=== PATIENT | female | born 1965 | race Caucasian/White ===

== ENCOUNTER → 2021-08-13 09:49 | Outpatient (BNVA) | payer OTHER, SELFPAY | PROVIDERS: PCP Family Medicine; Visit Provider Nurse Practitioner Family | DX: F07.81 Postconcussional syndrome (principal); G43.909 Migraine, unspecified, not intractable, without status migrainosus; R42 Dizziness and giddiness; F09 Unspecified mental disorder due to known physiological condition | CPT/HCPCS: 99202 ==

== ENCOUNTER → 2021-10-22 11:25 | Outpatient (BNVA) | payer OTHER, SELFPAY | PROVIDERS: PCP Family Medicine; Visit Provider Nurse Practitioner Family | DX: F07.81 Postconcussional syndrome (principal); G43.909 Migraine, unspecified, not intractable, without status migrainosus; F09 Unspecified mental disorder due to known physiological condition; R42 Dizziness and giddiness | CPT/HCPCS: 99212 ==

== ENCOUNTER → 2021-12-31 09:56 | Outpatient (BNVA) | payer OTHER, SELFPAY | PROVIDERS: PCP Family Medicine; Visit Provider Nurse Practitioner Family | DX: F07.81 Postconcussional syndrome (principal); G43.909 Migraine, unspecified, not intractable, without status migrainosus; R42 Dizziness and giddiness; F09 Unspecified mental disorder due to known physiological condition | CPT/HCPCS: 99212 ==

== ENCOUNTER → 2022-04-01 09:28 | Outpatient (BNVA) | payer OTHER, SELFPAY | PROVIDERS: PCP Family Medicine; Visit Provider Nurse Practitioner Family | DX: G43.909 Migraine, unspecified, not intractable, without status migrainosus (principal); F09 Unspecified mental disorder due to known physiological condition; F07.81 Postconcussional syndrome | CPT/HCPCS: 99212 ==

== ENCOUNTER → 2022-06-17 14:54 | Outpatient (BNVA) | payer OTHER, SELFPAY | PROVIDERS: PCP Family Medicine; Visit Provider Nurse Practitioner Family | DX: F07.81 Postconcussional syndrome (principal); R42 Dizziness and giddiness | CPT/HCPCS: 99212 ==

== ENCOUNTER → 2022-09-17 14:25 | Outpatient (BNVA) | payer OTHER, SELFPAY | PROVIDERS: PCP Family Medicine; Visit Provider Nurse Practitioner Family | DX: F07.81 Postconcussional syndrome (principal); G43.909 Migraine, unspecified, not intractable, without status migrainosus; F09 Unspecified mental disorder due to known physiological condition; R42 Dizziness and giddiness | CPT/HCPCS: 99212 ==

== ENCOUNTER 2022-12-31 14:24 | Outpatient (AMB) | payer OTHER, SELFPAY ==
--- NOTE | 2022-12-31 14:28 | MHC.OFFVIS ---
Intake Vital Signs 12/31/22 14:29 Height 5 ft BP 114/80 Blood Pressure Location Rt brachial Position Sitting Pulse 108 H Pulse Source Pulse Oximeter Pulse Oximetry (%) 97 Oxygen Delivery Method Room Air Intake Visit Reasons: 3m follow up - Confirmed Intake Note: Patient presents for 3 month follow up. patient states I'm needing some accomodations for work and I'm hoping she will help me with this,also I'm having some sensitivity to my computer not sure if someone messed with the settings I'm sleeping much better. 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
[2022-12-31 14:29] VITALS: BP 114/80; PULSE 108; O2SAT 97
--- NOTE | 2022-12-31 14:31 | MHC.OFFVIS ---
Intake Vital Signs 12/31/22 14:29 Height 5 ft BP 114/80 Blood Pressure Location Rt brachial Position Sitting Pulse 108 H Pulse Source Pulse Oximeter Pulse Oximetry (%) 97 Oxygen Delivery Method Room Air Intake Visit Reasons: 3m follow up - Confirmed Intake Note: Patient states I'm starting to work with accomdations at work and trying to figure our what acomadations I need. I'm hoping she can provide some input on that. I have not been taking the riboflavin or magnesium in general I'm doing better with sleep. Allergies adhesive Allergy (Verified 12/31/22 14:35) Rash beeswax Allergy (Verified 12/31/22 14:35) Unknown tree nut Allergy (Verified 12/31/22 14:35) Hives dairy Adverse Reaction (Severe, Uncoded 12/31/22 14:35) Constipation Medication List - Last Reconciled 12/31/22 by Sally Mendoza, CHANNING bupropion HCl 300 mg PO QAM dextroamphetamine-amphetamine 5 mg 1 tab PO .afternoon epinephrine IM DIRECTED estradiol (Yuvafem) 10 mcg vaginal 2XW lisdexamfetamine (Vyvanse) 30 mg PO QAM magnesium oxide 400 mg PO DAILY 30 days riboflavin (vitamin B2) 400 mg (4 x 100 mg) PO DAILY 30 days sumatriptan succinate 50 - 100 mg orally at onset of headache, may repeat in 2 hrs PRN; max 2 tabs/day or 4 tabs/week (may take with Tylenol or NSAID) 30 days HPI HPI Comments History of Present Illness Details 57-yr-old female presents for f/u visit, accompanied by her who helps with history and takes notes for patient (as the visit progressed). Pt has many questions today, related to her prognosis and would like to revisit her treatment plan w/ present. Over the last 3 months, she has needed to switch from Adderall to Vyvanse- d/t the Adderall drug shortage. This has required some dose adjustment to accommodate side effects, such as increased tinnitus and dizziness. She reports that at the end of August- she started her 2nd session of vision therapy. She was much more symptomatic during this session- increased photophobia, some mild increased phonophobia/osmophobia. And again, more recently she is having an increase in her photophobia, particularly certain work computer screens. She thinks possibly the settings were changed during a recent IT update. She has had a few headaches in the past 2-3 months, which generally are mild and can last a couple of days. She had been working about 4 hrs per day- had been working more, but had to decrease when she started having difficulty obtaining her Adderal as above. Currently her PCP has advised her to abstain from work until her computer monitors can be adjusted and/or her photophobia/screen tolerance improves. 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 [employer] All systems reviewed & are unremarkable except as noted in HPI and below Physical Exam Vital Signs: Last Vital Signs Pulse 108 H 12/31/22 14:29 BP 114/80 12/31/22 14:29 Pulse Ox 97 12/31/22 14:29 Oxygen Delivery Method Room Air 12/31/22 14:29 Const General: cooperative and no acute distress Orientation/consciousness: patient oriented x3 HEENT Head: Yes normocephalic Resp Effort & Inspection: normal respiratory effort and able to speak in complete sentences Neuro Other: Photophobia (exam room lights dimmed, but pt still needs to don a cap half way through visit) General: patient oriented x3, gait normal and CN's II-XI intact bilaterally Cognition (Neuro): normal cognition Motor exam (neuro): 5/5 motor strength present throughout Psych Appearance: grossly normal Mental Status: mental status grossly normal Speech and movement: Normal speech and movement present Affect: normal affect Attitude: cooperative Thought process: Normal thought process present Thought content: Normal thought content present Insight: Good insight present (Psych) Judgement: Good judgement present (Psych) Assessment & Plan Assessment & Plan (1) Postconcussive syndrome: Comment: s/p fall at work on 05/02/21. Headache, dizziness, cognitive difficulties, photophobia. Improving. Code(s): F07.81 - Postconcussional syndrome (2) Cognitive dysfunction: Comment: Improving Code(s): F09 - Unspecified mental disorder due to known physiological condition (3) Migraine headache: Code(s): G43.909 - Migraine, unspecified, not intractable, without status migrainosus Plan For post-concussive headache w/ migraine features and photophobia: Again advised to trial Sumatripatn- this may help photophobia. Instructions: sumatriptan 100 mg tablet, 1/2-1 tab at onset of migrainous headache (order resent w/ dose clarification).? May repeat in 2 hours x1.? May take with OTC NSAID such as ibuprofen or naproxen, or acetaminophen.? Reviewed common potential side effects associated with triptan use, including but not limited to drowsiness, nausea, paresthesias. Information given on Nerivio- which can be used for acute and prn tx. Pt will review and let me know if she would like to pursue this. ? For prevention of post concussive headaches with migraine features: Resume riboflavin and magnesium for migraine headache prevention. ? She may continue Vyvanse- managed by PCP. ? For photophobia: Vision tx- continue Continue limiting blue light exposure.?Do not wear sunglasses indoors, although may wear these outdoors. ? For sleep: Continue CPAP. ? Concur with pt abstaining from work while reasonable accommodations are implemented for her post-concussive symptoms, especially for photophobia, are implemented. During this time, pt to implement plan above. If ineffective, consider revisiting Amitriptyline. f/u in 3 months or sooner prn. Coding Level of Care Code Est Pt Level 5 (62506) Diagnoses Postconcussive syndrome F07.81 Cognitive dysfunction F09 Migraine headache G43.909 Time Spent (min) 65
== END 2022-12-31 15:50 | disposition home or self-care (01) ==
PROVIDERS: PCP Family Medicine; Visit Provider Nurse Practitioner Family
DX: R41.89 Other symptoms and signs involving cognitive functions and awareness (principal); F07.81 Postconcussional syndrome; G44.309 Post-traumatic headache, unspecified, not intractable
CPT/HCPCS: 99215

== ENCOUNTER → 2022-12-31 14:24 | Outpatient (BNVA) | payer OTHER, SELFPAY | PROVIDERS: PCP Family Medicine; Visit Provider Nurse Practitioner Family | DX: F07.81 Postconcussional syndrome (principal); F09 Unspecified mental disorder due to known physiological condition; G43.909 Migraine, unspecified, not intractable, without status migrainosus | CPT/HCPCS: 99212 ==

== ENCOUNTER → 2023-07-01 15:22 | Outpatient (BNVA) | payer OTHER, SELFPAY | PROVIDERS: PCP Family Medicine; Visit Provider Nurse Practitioner Family | DX: F07.81 Postconcussional syndrome (principal); G43.909 Migraine, unspecified, not intractable, without status migrainosus; F09 Unspecified mental disorder due to known physiological condition; R42 Dizziness and giddiness | CPT/HCPCS: 99212 ==

== ENCOUNTER 2023-07-01 15:27 | Outpatient (AMB) | payer OTHER, SELFPAY ==
--- NOTE | 2023-07-01 15:33 | MHC.OFFVIS ---
Vital Signs 07/01/23 15:34 Height 5 ft Weight 165 lb BMI 32.2 BP 116/80 Blood Pressure Location Rt brachial Position Sitting Pulse 84 Pulse Source Pulse Oximeter Pulse Oximetry (%) 99 Oxygen Delivery Method Room Air Intake Visit Reasons: follow up-CONF Intake Note: Patient presents for follow up. feeling a lot better. Allergies adhesive Allergy (Verified 07/01/23 15:37) Rash beeswax Allergy (Verified 07/01/23 15:37) Unknown tree nut Allergy (Verified 07/01/23 15:37) Hives dairy Adverse Reaction (Severe, Uncoded 07/01/23 15:37) Constipation HPI Comments Details: 58-yr-old female presents for f/u visit. Pt completed the vision light tx. After this, she was feeling somewhat better, but not everything was better. She has been scheduled to have another vision evaluation r/t vertigo and vision s/s. Her vision therapists have advised her to limit her exposures to anything that had been a trigger for her postconcussive symptoms. She has tried to return to work reduced hours but 5 days in a row, but then she did not tolerate this. She is now working a more reduced work schedule. She now has assistance from her employer's accommodations department. She is still having some symptoms, but more low-grade: She reports when she is taxed, although it takes more to tax her, she has osmophobia, photophobia, phonophobia, cognitive difficulties- word finding difficulties, brain fog, becomes overwhelmed. Her physical symptoms are more easily triggered than the cognitive symptoms. She still has headaches at times- milder low grade head pressure a/w osmophobia, photophobia, phonophobia. She ran out of the Magnesium- her work comp was not covering it and this happened while she was doing her vision tx- and she was having difficulties following through on that. She states that she should be receiving this shortly to resume it. She tried the Sumatriptan 25-50mg, which was very effective w/o side effects. 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: Last Vital Signs Pulse 84 07/01/23 15:34 BP 116/80 07/01/23 15:34 Pulse Ox 99 07/01/23 15:34 Oxygen Delivery Method Room Air 07/01/23 15:34 BMI result Body Mass Index 32.2 Const General: cooperative and no acute distress Orientation/consciousness: patient oriented x3 Resp Effort & Inspection: normal respiratory effort and able to speak in complete sentences Neuro Other: Photophobic General: patient oriented x3 Cranial nerves: Yes CN's II-XII intact bilaterally Cognition (Neuro): normal cognition Psych Appearance: grossly normal Mental Status: mental status grossly normal Speech and movement: Normal speech and movement present Affect: normal affect Attitude: cooperative Assessment & Plan Assessment & Plan (1) Postconcussive syndrome: Comment: s/p fall at work on 05/02/21. Headache, dizziness, cognitive difficulties, photophobia. Improving. Code(s): F07.81 - Postconcussional syndrome Category: Medical (2) Migraine headache: Code(s): G43.909 - Migraine, unspecified, not intractable, without status migrainosus Category: Medical (3) Cognitive dysfunction: Comment: Improving Code(s): F09 - Unspecified mental disorder due to known physiological condition Category: Medical (4) Vertigo: Comment: Improving Code(s): R42 - Dizziness and giddiness Category: Medical Plan For post-concussive headache w/ migraine features and photophobia: Sumatriptan 100 mg tablet, 1/4-1/2-1 tab at onset of migrainous headache, or associated symptoms- photo/phono/osmophobia.? May repeat in 2 hours x1.? May take with OTC NSAID such as ibuprofen or naproxen, or acetaminophen. For prevention of post concussive headaches with migraine features: Riboflavin and magnesium for migraine headache prevention. If?ineffective, consider revisiting Amitriptyline. She may continue neurostimulant- managed by PCP. ? For photophobia: Vision tx Continue limiting blue light exposure.?Do not wear sunglasses indoors, although may wear these outdoors. ? For sleep: Continue CPAP. Continue reduced work schedule. ? ? f/u in 6 months or sooner prn. Scribe Plan - Not visible on output: Reviewed possible medication side effects, including but not limited to drowsiness, dizziness.
[2023-07-01 15:34] VITALS: BP 116/80; PULSE 84; O2SAT 99; BMI 32.2
== END 2023-07-01 16:33 | disposition home or self-care (01) ==
PROVIDERS: PCP Family Medicine; Visit Provider Nurse Practitioner Family
DX: G44.309 Post-traumatic headache, unspecified, not intractable (principal); F07.81 Postconcussional syndrome; R42 Dizziness and giddiness
CPT/HCPCS: 99214

== ENCOUNTER 2024-01-01 14:27 | Outpatient (AMB) | payer OTHER, SELFPAY ==
--- NOTE | 2024-01-01 14:34 | A.OFFVIS_ITS ---
Vital Signs 01/01/24 14:35 Height 5 ft Weight 157 lb BMI 30.7 Intake Visit Reasons: W/C 6 mon follow up Intake Note: Patient presents for 6 month follow up. Patient believes there something going on in her neck. Allergies adhesive Allergy (Verified 01/01/24 14:39) Rash beeswax Allergy (Verified 01/01/24 14:39) Unknown tree nut Allergy (Verified 01/01/24 14:39) Hives dairy Adverse Reaction (Severe, Uncoded 01/01/24 14:39) Constipation Medication List - Last Reconciled 01/01/24 by CHANNING Conti bupropion HCl XL 300 mg PO QAM dextroamphetamine-amphetamine 10 mg ER 1 cap PO QAM dextroamphetamine-amphetamine 5 mg 1 tab PO .afternoon epinephrine IM DIRECTED estradiol (Yuvafem) 10 mcg vaginal 2XW lisdexamfetamine (Vyvanse) 30 mg PO QAM magnesium oxide 400 mg PO DAILY 30 days riboflavin (vitamin B2) 400 mg (4 x 100 mg) PO DAILY 30 days sumatriptan succinate 50 - 100 mg orally at onset of headache, may repeat in 2 hrs PRN; max 2 tabs/day or 4 tabs/week (may take with Tylenol or NSAID) 30 days HPI Comments Details: 58-yr-old female presents for f/u visit of post-concussive tx. She is still having some postconcussive symptoms, but much less often and less intense. Pt has started wearing 1 of the 3 pairs of specific glasses w/ prisms and medical light blocking tints, which have been helping. She is still waiting to receive the other 2 glasses- for the computer and for reading. Over the summer, she ended up without her Adderall for several days when she travelled to help her mother and ended up staying there for 2 weeks- and found that she did not do as well as she thought she would have off the Adderall. But now is able to function a bit better if she misses an afternoon dose of Adderall. She is now working full days [id number], and 3 hrs on and . 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 She reports that she did sleep another time at her mother's and did not have her usual thin pillow (which she has needed to use since the accident), and since she has felt that her neck has not been right since, she notices when she turns her head to the right it can trigger a headache. She has done PT in the past w hich has helped but has had to repeat it after a year or so. She has been having more low grade headaches. She has not been having many more severe headaches. She does take, but may forget to take her B2 and Mag at times. Sumatriptan 25-50mg, can be very effective w/o side effects. 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 General: patient oriented x3 and deep tendon reflexes 2+ bilaterally Cranial nerves: Yes CN's II-XII intact bilaterally Cognition (Neuro): normal cognition Motor exam (neuro): 5/5 motor strength present throughout Psych Appearance: grossly normal Mental Status: mental status grossly normal Speech and movement: Normal speech and movement present Affect: normal affect Attitude: cooperative Assessment & Plan Assessment & Plan (1) Postconcussive syndrome: Comment: s/p fall at work on 05/02/21. Headache, dizziness, cognitive difficulties, photophobia. Improving. Code(s): F07.81 - Postconcussional syndrome Category: Medical (2) Migraine headache: Code(s): G43.909 - Migraine, unspecified, not intractable, without status migrainosus Category: Medical (3) Cervicalgia: Code(s): M54.2 - Cervicalgia Category: Medical (4) Cognitive dysfunction: Comment: Improving Code(s): F09 - Unspecified mental disorder due to known physiological condition Category: Medical (5) Vertigo: Comment: Improving Code(s): R42 - Dizziness and giddiness Category: Medical Plan For post-concussive headache w/ migraine features and photophobia: Sumatriptan 100 mg tablet, 1/2-1 tab at onset of migraine headache, or associated symptoms- photo/phono/osmophobia.? May repeat in 2 hours x1.? May take with OTC NSAID such as ibuprofen or naproxen, or acetaminophen. For prevention of post concussive headaches with migraine features: Riboflavin and magnesium for migraine headache prevention. If?ineffective, consider revisiting Amitriptyline. For post-concussive cervicalgia which is excacerbating headcahes: Resume PT exercises. Try chiropractic tx- if ineffective, revisit PT. She may continue neurostimulant- managed by PCP. ? For photophobia: Vision tx Medical grade light filtering glasses w/ prisms as prescribed- she is awaiting 2 more pairs for readinga nd computer use. Continue limiting blue light exposure.? Do not wear sunglasses indoors, although may wear these outdoors. ? For sleep: Continue CPAP. Continue reduced work schedule. ? ? f/u in 6 months or sooner prn. Orders: Referrals Chiropractic Referral F07.81 - Postconcussional syndrome, G43.909 - Migraine, unspecified, not intractable, without status migrainosus, M54.2 - Cervicalgia Coding Level of Care Code Est Pt Level 4 (93547) Diagnoses Postconcussive syndrome F07.81 Migraine headache G43.909 Cervicalgia M54.2 Cognitive dysfunction F09 Vertigo R42
[2024-01-01 14:35] VITALS: BMI 30.7
== END 2024-01-01 15:39 | disposition home or self-care (01) ==
PROVIDERS: PCP Family Medicine; Visit Provider Nurse Practitioner Family
DX: F07.81 Postconcussional syndrome (principal); G44.301 Post-traumatic headache, unspecified, intractable; F09 Unspecified mental disorder due to known physiological condition; M54.2 Cervicalgia; R42 Dizziness and giddiness
CPT/HCPCS: 99214

== ENCOUNTER → 2024-01-01 14:27 | Outpatient (BNVA) | payer OTHER, SELFPAY | PROVIDERS: PCP Family Medicine; Visit Provider Nurse Practitioner Family | DX: F07.81 Postconcussional syndrome (principal); G43.909 Migraine, unspecified, not intractable, without status migrainosus; M54.2 Cervicalgia; F09 Unspecified mental disorder due to known physiological condition; R42 Dizziness and giddiness | CPT/HCPCS: 99212 ==

== ENCOUNTER 2024-07-14 14:14 | Outpatient (AMB) | payer OTHER, SELFPAY ==
[2024-07-14 14:36] VITALS: BP 120/86; PULSE 86; O2SAT 99; BMI 33.2
--- NOTE | 2024-07-14 14:36 | MHC.OFFVIS ---
Vital Signs 07/14/24 14:36 Height 5 ft Weight 170 lb BMI 33.2 BP 120/86 Blood Pressure Location Lt brachial Position Sitting Pulse 86 Pulse Source Pulse Oximeter Pulse Oximetry (%) 99 Oxygen Delivery Method Room Air Intake Visit Reasons: Follow Up 6mo Intake Note: Patient presents 6 month follow up post concussive symptoms. Buoy Tender Required: No Accompanied by: Self / Same As Patient Allergies adhesive Allergy (Verified 07/14/24 14:39) Rash beeswax Allergy (Verified 07/14/24 14:39) Unknown tree nut Allergy (Verified 07/14/24 14:39) Hives dairy Adverse Reaction (Severe, Uncoded 01/01/24 14:39) Constipation Medication List - Last Reconciled 07/14/24 by CHANNING Conti bupropion HCl XL 300 mg PO QAM cholecalciferol (vitamin D3) 125 mcg PO DAILY dextroamphetamine-amphetamine 10 mg ER 1 cap PO QAM dextroamphetamine-amphetamine 5 mg 1 tab PO .afternoon epinephrine IM DIRECTED magnesium oxide 400 mg PO DAILY 30 days riboflavin (vitamin B2) 400 mg (4 x 100 mg) PO DAILY 30 days sumatriptan succinate 50 - 100 mg orally at onset of headache, may repeat in 2 hrs PRN; max 2 tabs/day or 4 tabs/week (may take with Tylenol or NSAID) 30 days HPI Comments Details: 59-yr-old female presents for f/u visit of post-concussive tx. 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 She also reports she has been helping her mother move over the last several months from the [facility] to a local [facility]. Initially she was tolerating this ok- her partner was driving- but was only needing to use her sumatriptan about once a month. However, in the last month, she actually had to actually move her mother and now has to prepare her mother's condo to be sold. Then, she noticed she was having increased headaches, was taking sumatriptan a few times a week- which was helpful. But then she realized the headaches are not a/w visual symptoms or just very mild visual symptoms. So now using tylenol 500mg qd prn- which is effective- but headache might come back later in the day-is finding herself using it almost daily. Not noticing herself being off-balance. Also noticing some mild cognitive processing delays. She is taking the riboflavin and magnesium regularly. She is on adderall again- does not always take the adderal 5mg consistently. Continues to work with vision therapist- has prisms. 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 She has just started seeing a private chiropractor- doing OMT type tx- feels it is starting to help. 01/01/2024, previous HPI: She is still having some postconcussive symptoms, but much less often and less intense. Pt has started wearing 1 of the 3 pairs of specific glasses w/ prisms and medical light blocking tints, which have been helping. She is still waiting to receive the other 2 glasses- for the computer and for reading. Over the summer, she ended up without her Adderall for several days when she travelled to help her mother and ended up staying there for 2 weeks- and found that she did not do as well as she thought she would have off the Adderall. But now is able to function a bit better if she misses an afternoon dose of Adderall. She is now working full days [id number], and 3 hrs on and . 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 She reports that she did sleep another time at her mother's and did not have her usual thin pillow (which she has needed to use since the accident), and since she has felt that her neck has not been right since, she notices when she turns her head to the right it can trigger a headache. She has done PT in the past which has helped but has had to repeat it after a year or so. She has been having more low grade headaches. She has not been having many more severe headaches. She does take, but may forget to take her B2 and Mag at times. Sumatriptan 25-50mg, can be very effective w/o side effects. 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 Vital Signs: Last Vital Signs Pulse 86 07/14/24 14:36 BP 120/86 07/14/24 14:36 Pulse Ox 99 07/14/24 14:36 Oxygen Delivery Method Room Air 07/14/24 14:36 BMI result Body Mass Index 33.2 Const General: cooperative and no acute distress Orientation/consciousness: patient oriented x3 Resp Effort & Inspection: normal respiratory effort and able to speak in complete sentences Neuro Other: Photophobic General: patient oriented x3 and deep tendon reflexes 2+ bilaterally Cranial nerves: Yes CN's II-XII intact bilaterally Cognition (Neuro): normal cognition Motor exam (neuro): 5/5 motor strength present throughout Psych Appearance: grossly normal Mental Status: mental status grossly normal Speech and movement: Normal speech and movement present Affect: normal affect Attitude: cooperative Assessment & Plan Assessment & Plan (1) Postconcussive syndrome: Comment: s/p fall at work on 05/02/21. Headache, dizziness, cognitive difficulties, photophobia. Improving. Code(s): F07.81 - Postconcussional syndrome Category: Medical (2) Migraine headache: Code(s): G43.909 - Migraine, unspecified, not intractable, without status migrainosus Category: Medical (3) Cervicalgia: Code(s): M54.2 - Cervicalgia Category: Medical (4) Cognitive dysfunction: Comment: Improving Code(s): F09 - Unspecified mental disorder due to known physiological condition Category: Medical Plan For post-concussive headache w/ migraine features and photophobia: Tylenol 500mg every 4-6 hrs prn. Sumatriptan 100 mg tablet, 1/2-1 tab at onset of migraine headache, or associated symptoms- photo/phono/osmophobia.? May repeat in 2 hours x1.? May take with OTC NSAID such as ibuprofen or naproxen, or acetaminophen. For prevention of post concussive headaches with migraine features: May try adding Co-Q 10 400mg qam- taken with or after a meal. Riboflavin and magnesium for migraine headache prevention. If?ineffective, consider revisiting Amitriptyline. For post-concussive cervicalgia which can exacerbate headaches: Continue PT exercises. Continue chiropractic tx- note pt is paying for this herself. ? For photophobia: Vision tx Medical grade light filtering glasses w/ prisms as prescribed- shehas 3 pairs for different tasks. Continue limiting blue light exposure.? Do not wear sunglasses indoors, although may wear these outdoors. ? For sleep: Continue CPAP. For cognition: She may continue neurostimulant- managed by PCP. 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 ? ? f/u in 6 months or sooner prn. Coding Level of Care Code Est Pt Level 4 (35777) Diagnoses Postconcussive syndrome F07.81 Migraine headache G43.909 Cervicalgia M54.2 Cognitive dysfunction F09
--- OUTSIDE RECORDS SUMMARY | 2024-07-14 17:18 | XMS_ITS | Patient Health Record ---
Author Organization [facility] [address] [place] [address] [address] Address [address] [place] [id number] Care Team Providers Care Railroad Hand Name Role Phone Tobias Rosen MD Unavailable [phone] REASON FOR REFERRAL No Information SOCIAL HISTORY Sex Assigned At : Social History Observation Description Sex Assigned At Female VITAL SIGNS Heart Rate 70 /min 10/12/2023 Respiratory Rate 19 /min 10/12/2023 Blood pressure diastolic 70 mm Hg 10/12/2023 Blood pressure systolic 120 mm Hg 10/12/2023 Encounters Encounter Location Date Provider Diagnosis [facility] [address] [address] [phone] 10/12/2023 Tobias Rosen MD ASSESSMENTS Encounter Date Diagnosis Assessment Notes Treatment Notes Treatment Clinical Notes Section Notes 10/12/2023 Other DIAGNOSIS:The patient is status post fall on 05/02/2021 and was not associated with any head trauma or loss of consciousness. I do not believe that the patient suffered any neurological injury due to this fall. I do not believe that the patient is disabled to any degree at this pointI do not believe that the patient requires any further treatment from the neurological standpoint at this point.. Questioned asked of me1-Does the Employee have a pre-existing disease or injury?Answer: Not applicable.2-If so, does that disease or injury combine with the Employee's injury to cause a disability or need for treatment?Answer: Not applicable. 3-Is the work injury a major cause of the Employee's disability or need for treatment?Answer: Not applicable. . Thank you for asking me to evaluate this patient. . PLAN OF TREATMENT No Information Insurance Providers Payer Name Payer Address Payer Phone Subscriber Number Group Number Insured Name Patient Relationship to Insured Coverage Start Date Coverage End Date [employer] [facility] [address] [place] [address] [id number] Anne Benavidez Self - patient is the insured
--- OUTSIDE RECORDS SUMMARY | 2024-07-14 17:18 | XMS_ITS | Clinical Summary ---
Author Organization [facility] Address [address] [facility] [address] [place] [address] Phone Care Team Providers Care Near East Archeology Professor Name Role Phone Manuela Reyes DO Primary Care Provider [phone] Allergies Active Allergy Reactions Criticality Noted Date Comments Actical Other (see comments) 12/09/2022 Other Other (see comments) 12/09/2022 Medications cholecalciferol (VITAMIN D-3) 25 MCG (1000 UT) capsule Take 1 capsule by mouth 1 (one) time each day Active Vyvanse 30 MG capsule TAKE 1 CAPSULE BY MOUTH EVERY MORNING - *INCREASE IN DOSE 11/03/2022 Active buPROPion XL (WELLBUTRIN XL) 300 MG 24 hr tablet Take 300 mg by mouth 1 (one) time each day 11/27/2022 Active Magnesium 400 MG tablet Take by mouth Active Riboflavin (VITAMIN B2 PO) Take 800 mg by mouth Active Active Problems Problem Noted Date Diagnosed Date Medullary sponge kidney 12/10/2022 Personal history of kidney stones 12/10/2022 Hydronephrosis 12/09/2022 12/09/2022 Painful urinary bladder spasm 12/09/2022 Medullary sponge kidney 12/09/2022 12/10/19 Low back pain 12/09/2022 12/09/2022 Lamberto hematuria 12/09/2022 12/09/2022 Osteopenia 06/24/2022 12/09/2022 Overview (12/09/2022): 2022 Postconcussion syndrome 05/06/2021 12/10/19 23 Overview (12/09/2022): Dr. Tolentino Also LABELING SPECIALIST Kadi Mendoza Following Neuropsych eval 12/2021 Psychiatrist: Georges Wasserman Last Assessment & Plan: Overall, she continues to improve ??(with mild flares along the way-) She is working with Dr. Wasserman on finding the right stimulant and dose- currently on Vyvanse rx'd by Dr. Wasserman. I recommend continuing current treatment and work hours up to: ??4-7.5 hours 5d per week from home as tolerated.? Continue with the vision therapy for the visual sx + possibly the sound sensitivity She has finished??the??kinesiology class project through [employer] which was also helpful. She has been doing great with the walking exercise (this has been helpful for her sx). ? A new letter for work is being written and sent. Cooking safety concerns: Speech and language consult is pending Until then, she is advised not to cook/ while alone. Neck pain- as related to this syndrome/injury: No indication for urgent imaging. PT pending next month Gentle stretching advised. Atrophy of vagina 04/30/2020 12/09/2022 Overview (12/09/2022): Last Assessment & Plan: Discussed that endometriosis is quiescent after menopause. Using vaginal estradiol does not result in systemic changes in hormone levels and has no impact on endometriosis. Will restart Yuvafem. Mass of duodenum 11/12/2018 12/09/2022 Overview (12/09/2022): ? 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 Fibromyalgia 09/15/2017 12/09/2022 Overview (12/09/2022): Last Assessment & Plan: Flaring up a little bit. Not severe. Understands the need for physical therapy and initiation again of her home exercise program as well as following a low inflammatory Mediterranean style diet. Of her questions were answered. Greater than 50% of this 28-minute visit was spent in [id number] conversation with the patient. Darwin's neuroma of right foot 02/04/2017 0 12/09/2022 Endometriosis 02/04/2017 12/09/2022 Dyslipidemia 02/04/2017 12/09/2022 Cyst of liver 02/04/2017 12/09/2022 Overview (12/09/2022): Incidental finding on CT 03/2018 Osteoarthritis of joint of bilateral hands 02/0412/09/2022 Overview (12/09/2022): Last Assessment & Plan: Generalized warmth and enlarged sales supervisor on tools and utensils were recommended. Primary gonarthrosis, bilateral 02/04/2017 12/09/2022 Overview (12/09/2022): Last Assessment & Plan: Weight reduction quadricep strengthening well fitting supportive shoes with good shock absorption are all recommended. We may revisit the possibility of Visco supplementation. We will be only if things worsen. Immunizations Immunization Administration Dates Next Due Influenza Split Preservative Free ID 12/22/2012 Influenza, Quadrivalent, Pre servative Free 12/24/2021,12/27/2020,01/28/2020,2017,12/09/2016 Influenza, Quadrivalent, Wit h Preservative 11/28/2018 Influenza, Recombinant, Quad rivalent, Pf 12/27/2018 Influenza, Unspecified 12/11/2015,01/27/2015, Pfizer SARS-COV-2 01/16/2022,07/29/2020,07/09/19 21 Shingrix 12/28/2019,10/27/2019 Tdap 07/29/2012 Family History Relation Status Comments Father Unknown Mother Unknown Social History Tobacco Use Types Packs/Day Years Used Date Smoking Tobacco: Never Alcohol Use Standard Drinks/Week Comments Yes 0 (1 standard drink = 0.6 oz pure alcohol) Alcoholic Drinks/day: Occasional social drink Comments Unknown Sex and Gender Information Value Date Recorded Sex Assigned at Not on file Legal Sex Female 10:53 AM EDT Gender Identity Not on file Sexual Orientation Not on file Last Filed Vital Signs Vital Sign Reading Time Taken Comments Blood Pressure 122/64 03/18/2023 3:25 PM EST Pulse 98 03/18/2023 3:25 PM EST Temperature - - Respiratory Rate - - Oxygen Saturation 95% 03/18/2023 3:25 PM EST Inhaled Oxygen Concentration - - Weight 77.8 kg (171 lb 9.6 oz) 03/18/2023 3:25 P M EST Height 152.4 cm (5') 06/02/2018 12:00 PM EST Body Mass Index 33.51 06/02/2018 12:00 PM EST Plan of Treatment Upcoming Encounters Date Type Department Care Team (Late st Contact Info) Description 07/28/2024 9:00 AM EDT Office Visit [facility] [address] [phone] Joseluis Zhang MD [address] [phone] Health Maintenance Due Date Last Done Comments Breast Cancer Screening 1965 Pneumococcal Vaccine: 50+ Years (1 of 2 - PCV) 1982 Colorectal Cancer Screening: Annual FOBT 02/11/2012 Colorectal Cancer Screening: Colonoscopy 02/11/2012 Colorectal Cancer Screening: Sigmoidoscopy 02/11/2012 Influenza Vaccine (Season Ended) 2024 12/13/2022, 12/24/2021, 12/27/2020, Additional history exists Hepatitis B Vaccine Aged Out No longe r eligible based on patient's age to complete this topic Insurance [place] [address] Care Teams Near East Archeology Professor Relationship Specialty Start Date End Date Manuela Reyes DO [address] [place] [address] [address] [place], [place] [id number] PCP - General Family Medicine 12/10/22
--- OUTSIDE RECORDS SUMMARY | 2024-07-14 17:18 | XMS_ITS ---
Author Organization [facility] [address] Location Address [address] [place] [id number] Care Team Providers Care Block Sorter Name Role Phone Silas BANKS, Tobias Unavailable [phone] REASON FOR VISIT ADELIA SOCIAL HISTORY Sex Assigned At : Social History Observation Description Sex Assigned At Female VITAL SIGNS Blood pressure systolic 120 mm Hg 10/12/19 24 Blood pressure diastolic 70 mm Hg 024 Heart Rate 70 /min 10/12/2023 Respiratory Rate 19 /min 10/12/2023 Encounters Encounter Location Date Provider Diagnosis [facility] [address] Location [address] [address] 10/12/2023 Tobias Rosen MD ASSESSMENTS Encounter Date [...] evaluate this patient. . PLAN OF TREATMENT Treatment Notes Assessment Notes Other DIAGNOSIS:The patient is status post fall [...] asking me to evaluate this patient. . Progress Notes * Anne BENAVIDEZDOB: [birth year] (58 yo F)Acc No.[id number]:10/12/2023 Patient:??Anne BENAVIDEZ Provider:??Tobias Rosen MD :1965?Age:58 Y?Sex:Fe male Date:10/12/2023 Address:[address] [place] [address] Subjective: * Chief Complaints: * ?ADELIA * HPI: ?Constitutional:? 58 years old female ?. ?The patient was seen today in Independent Neurological Evaluation on behalf of the Department of [employer]. My role today was discussed with the patient and we also discussed that a patient-doctor relationship does not exist. The patient voiced understanding of this discussion. A history was taken from the patient, records made available by the [employer] were reviewed and a neurological examination was performed as well. ?. ?Date of accident 05/02/2021. 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 She slipped on ice. She fell on her right knee. She did not hit her head. She did not pass out. She got up by herself. She continued on for 1-2 minutes to her building she was trying to get to and told someone that it was icy outside. She was offered some ice for her right knee and then they asked her if she wanted to reported it and she does not recall what happened but somehow she ended up getting her paperwork and she was sent the online form and as she started filling out, she felt that she just could not do it. At that time, she felt something over the right hip. She thought about calling her to pick her up at lunch time. However around 10 AM that day, she felt that she needed to get off the computer and went home with her . ?. ?She rested all weekend and then thought that she can return to work on Thursday . She ended calling her primary care doctor on Thursday. ?. ?05/06/2021 [facility]- tele medicine note. They indicate history of multiple concussions in childhood and as adult. They note some post concussive symptoms after a minor fall without head injury. They note that she fell on ice on her knee and that she had some brain fog and the next day had a headache. ?. ?10/11/2021 MRI of the brain was normal. ?. ?Symptoms now: ?She continues to have some trouble with computer work. She was given prisms for the glasses per patient. She can work in front a computer screen for 7.5 hours. ?She has a lot of light sensitivity ?She has exhaustion after driving. ?She also gets headache after driving. Takes sumatriptan for them. ?She feels that her memory is compromised although better than it was in the past. ?She has some neck pain although has gotten better and is now worse only after driving. ?. ?Typical day: ?She was asked to describe a typical day. ?She is working full days on Mondays, Wednesdays and Fridays. ?On the days she does not work, she does not remember what she does. ?She can drive. She feels that she can drive up to [address]. ?. ?Past medical and surgical history: ?Sleep apnea on CPAP machine. ?Kidney stones. ?Kidney stones surgery ?Laparoscopy for endometriosis. ?She was diagnosed with fibromyalgia but she does not think that she has that. ?. ?Medications: ?Sumatriptan as needed for headaches. ?Wellbutrin which she is on for normal covid experiences . She denied depression / anxiety. ?Adderall ?Vitamins ?Riboflavin and magnesium which she has been taking them as needed only. ?. ?Allergy: ?No allergy ?. ?Records reviewed ?Dr. Pa Mayo's 01/21/2023 - Independent Neuropsychology Evaluation. ?Dr. Pa Mayo's 03/09/2023 Addendum was reviewed and in that the examiner notes that the patient was treated for what was described to be a long-standing history of anxiety. Also was treated for post-traumatic stress disorder in her 50s and also has history of attention deficit hyperactivity disorder. ?Dr. Pa Mayo's 03/11/2022 report ?Dr. Richard Hogan's 08/17/2021 report ?[facility] office note 05/06/2021 ?Haylee Bales, Radhika. The patient was diagnosed by her mounted police with convergence insufficiency. ?Freya Lauren, ADMISSION NURSE COORDINATOR notes ?[facility] ?Neuropsychological Evaluations of [place] Dated: 12/28/2021 ?Dr. Pa Mayo, Reevaluation Dated: 01/21/2023 ?[facility] Selected Dated: 07/17/2022-06/29/2023 ?[facility] notes. ?MRI of Brain Dated: 10/11/2021 was normal. ?[facility] notes ?Dr. Hughes Report Dated: 04/03/2017. The patient underwent neuropsychological testing that showed Attention Deficit Hyperactivity Disorder in the mild to moderate range. * Medical History:?? * Surgical History:?? * Hospitalization/Major Diagno stic Procedure:?? * Medications:?? Objective: * Vitals:??HR:70, BP:120/70, R R:19. * Examination: ?Comprehensive Examination: ?General Examination??Well developed , Well nourished , Normal hygiene.?Eyes/Ophthalmoscopic??See under CN-2.?Cardiovascular??Normal auscultation to the carotid arteries.?Heart Auscultation??Normal auscultation to the heart.?Peripheral Vascular Exam??Normal peripheral pulses.?Musculoskeletal??Normal.?Mental Status: ?Alertness, Attention and Concentration??Normal.?Orientation??Normal.?Memory testing??Normal short , Intermediate and fpc memory.?Fund of knowledge??Normal.?Speech??Normal.?Language??Normal including naming.?Cranial Nerves: ?II??León normal to confrontation , Fundoscopy is normal with normal optic discs without swelling, pallor or hemorrhage.?III??Third nerve function is normal , There is no ptosis , Pupils are round equal and reactive to light without RAPD ?She is wearing base-out prisms OU. ?Exam was done without her prisms ?Convergence is normal..?IV??Normal function of the fourth cranial nerve.?V??Normal facial sensation , Normal motor function of Masseters muscles.?Normal abduction..?VII??Normal facial strength without aberrant regeneration.?VIII??Hearing is intact..?IX and X??Normal voice and palate elevates normally.?XI??Normal shoulder abduction.?XII??Normal tongue strength without fasciculation.?Other Neurological: ?Cerebellar function??Finger to nose and heel to greenfield are normal , Rapid alternating movements are normal , Finger dexterity is normal.?Sensory testing??Normal pinprick , Normal light touch , Normal vibratory sense , Pt has normal joint position sense.?Gait??Gait and tandem gait testing is normal.?DTR??symmetric and plantars are flexor.?Motor testing??Strength in the upper and lower extremities is normal , The patient had normal tone and muscle bulk.? Assessment: Plan: * Treatment: * Procedure Codes:?? * Billing Information: * Visit Code:?? * Procedure Codes:?? * Sign off status: Completed true * Provider:??Tobias Rosen MD Date:??2023 History and Physical Notes * Examination Category Sub-Category Detail Notes Category Not es Comprehensive Examination General Examination Well developed , Well nourished , Normal hygiene Eyes/Ophthalmoscopic See under CN-2 Cardiovascular Normal auscultation to the carotid arteries Heart Auscultation Normal auscultation to the heart Peripheral Vascular Exam Normal peripher al pulses Musculoskeletal Normal Mental Status Alertness, Attention and Concentration N ormal Orientation Normal Memory testing Normal short , Inter mediate and fpc memory Fund of knowledge Normal Speech Normal Language Normal including nam ing Cranial Nerves II León normal to confrontation , Fundoscopy is normal with normal optic discs without swelling, pallor or hemorrhage III Third nerve function is normal , There is no ptosis , Pupils are round equal and reactive to light without RAPD She is wearing base-out prisms OU. Exam was done without her prisms Convergence is normal. IV Normal function of t he fourth cranial nerve V Normal facial sensat ion , Normal motor function of Masseters muscles Normal abduction. VII Normal facial streng th without aberrant regeneration VIII Hearing is intact. IX and X Normal voice and pal ate elevates normally XI Normal shoulder abdu ction XII Normal tongue streng th without fasciculation Other Neurological Cerebellar function Finger to nose and heel to greenfield are normal , Rapid alternating movements are normal , Finger dexterity is normal Sensory testing Normal pinprick , No rmal light touch , Normal vibratory sense , Pt has normal joint position sense Gait Gait and tandem gait testing is normal DTR symmetric and planta rs are flexor Motor testing Strength in the uppe r and lower extremities is normal , The patient had normal tone and muscle bulk
== END 2024-07-14 15:32 | disposition home or self-care (01) ==
PROVIDERS: PCP Family Medicine; Visit Provider Nurse Practitioner Family
DX: F07.81 Postconcussional syndrome (principal); G44.309 Post-traumatic headache, unspecified, not intractable; M54.2 Cervicalgia; F09 Unspecified mental disorder due to known physiological condition
CPT/HCPCS: 99214

== ENCOUNTER → 2024-07-14 14:14 | Outpatient (BNVA) | payer OTHER, SELFPAY | PROVIDERS: PCP Family Medicine; Visit Provider Nurse Practitioner Family | DX: G43.909 Migraine, unspecified, not intractable, without status migrainosus (principal); M54.2 Cervicalgia; F07.81 Postconcussional syndrome | CPT/HCPCS: 99212 ==

== ENCOUNTER 2025-01-19 14:46 | Outpatient (AMB) | payer OTHER, SELFPAY ==
--- OUTSIDE RECORDS SUMMARY | 2025-01-14 00:02 | XMS_ITS | Encounter Summary ---
Author Organization [facility] Address [address] [facility] [facility] [address] [place] [phone] Phone Care Team Providers Care Steel Manager Name Role Phone Brenden Carvajal aKthrine DO Unavailable Manuela Waggoner DO Unavailable [phone] Crow Man MD Unavailable [email or web address] Manuela Waggoner DO Primary Care Provider [phone] Reason for Visit * Reason Comments Chest Pain Encounter Details Date Type Department Care Team (Late st Contact Info) Description 01/14/2025 12:02 AM EDT - 01/14/2025 3:14 AM EDT Emergency [facility] [address] [place] [address] Discharge Disposition: Left Without Being Seen Social History Tobacco Use Types Packs/Day Years Used Date Smoking Tobacco: Never Smokeless Tobacco: Never Alcohol Use Standard Drinks/Week Comments Never 0 (1 standard drink = 0.6 oz pur e alcohol) Child or Family Care Answer Date Record ed Do you have problems with on e of the following making it difficult for you to work, study, or receive health care? No 02/12/2022 Education Answer Date Recorded Are you interested in more education? Not on suzanne e 02/18/2024 Are you concerned about learning? Not on file 02/18/2024 No 02/18/2024 No 02/18/2024 Food Answer Date Recorded Within the past 6 months we worried whether our food would run out before we got money to buy more. Never True 02/12/2022 Within the past 6 months the food we bought just didn't last and we didn't have enough money to get more. Never True Residential Stability Answer Date Recor ded What is your housing situation today? I have roxann macdonald 02/12/2022 How many times have you move d in the past 12 months? Zero (I did not move) 02/12/2022 Paying for Meds Answer Date Recorded Do you have trouble paying for medicines? No 02/12/2022 Paying Utility Bills Answer Date Record ed Do you have trouble paying your heating or elect ricity bill? No 02/12/2022 Transportation Answer Date Recorded Has the lack of transportati on kept you from medical appointments or from getting medications? I choose not to answer 02/12/2022 Unemployment Answer Date Recorded Are you currently unemployed or working on a part-time or temporary basis, and looking for work? No 02/12/2022 Digital Access Answer Date Recorded No 08/19/2022 No 08/19/2022 Reliable internet access at home? Not on file 08/19/2022 Device with a working camera? Not on file Intimate Partner Violence Answer Date R ecorded Are you denied basic needs s uch as food, clothing, or medical care? No 01/14/2025 In the past 12 months have y ou been in a relationship with a person who hurts, threatens, or tries to control you? No 01/14/2025 Are you denied basic needs s uch as food, clothing, or medical care? No 01/14/2025 In the past 12 months have y ou been in a relationship with a person who hurts, threatens, or tries to control you? No 01/14/2025 Comments No Sex and Gender Information Value Date Recorded Sex Assigned at Female 09/08/2018 3:07 AM EDT Legal Sex Female 9:44 PM EDT Gender Identity Female 09/08/2018 3:07 AM EDT Sexual Orientation Straight 09/08/2018 3: 07 AM EDT documented as of this encounter Last Filed Vital Signs Vital Sign Reading Time Taken Comments Blood Pressure 138/83 01/14/2025 12:08 AM EDT Pulse 86 01/14/2025 12:08 AM EDT Temperature 36.1 C (97 F) 01/14/2025 12:08 AM EDT Respiratory Rate 17 01/14/2025 12:08 AM EDT Oxygen Saturation 100% 01/14/2025 12:08 AM EDT Inhaled Oxygen Concentration - - Weight 77.1 kg (170 lb) 01/14/2025 12:08 AM EDT Height 149.9 cm (4' 11 ) 01/14/2025 12:08 AM EDT Body Mass Index 34.34 01/14/2025 12:08 AM EDT documented in this encounter Functional Status * Calculated C-SSRS Risk Score (Lifetime/Recent) Answer Date of Assessment Author No Risk Indicated 01/14/2025 12:10 AM EDT Christiane Zhang RN * [place] Suicide Severity Rating Scale (Screener/Recent Self-Report) Question Answer Date of Assessment Author 1. Wish to be (Past 1 Month) No 025 12:10 AM EDT Christiane Monroe RN 2. Non-Specific Active Suici didier Thoughts (Past 1 Month) No 01/14/2025 12:10 AM EDT Ines Monroe RN 6. Suicidal Behavior (Lifetime) No 12:10 AM EDT Christiane Monroe RN documented as of this encounter Medications at Time of Discharge buPROPion (WELLBUTRIN XL) 150 MG ER 24 hr tablet 06/13/2024 buPROPion (WELLBUTRIN XL) 300 MG ER 24 hr tabletIndication s:Anxiety and depression TAKE 1 TABLET BY MOUTH EVERY DAY 90 tablet 1 12/22/2022 cholecalciferol, vitamin D3, 25 mcg (1,000 unit) capsule Take 1 capsule by mouth. 50 mcg BID DENTAGEL 1.1 % Gel USE ONCE DAILY DIRECTED PREFERABLY AT BEDTIME EXPECTORATE, DO NOT RINSE 06/14/2024 dextroamphetamin e-amphetamine (ADDERALL XR) 10 MG 24 hr capsule Take 10 mg by mouth every morning. 06/17/2023 dextroamphetamin e-amphetamine (ADDERALL) 5 mg Tab Take 5 mg by mouth nightly at bedtime. 06/17/2023 EPINEPHrine 0.3 mg/0.3 mL auto-injector as directed 2 each 1 09/08/2022 magnesium oxide (MAG-OX) 400 mg (241.3 mg elemental) tablet Take 1 tablet by mouth daily. 09/20/2021 OPZELURA 1.5 % Crea APPLY TO AREA OF VITILIGO ON FACE TWICE DAILY 04/08/2024 riboflavin, vitamin B2, (,VITAMIN B-2,) 100 mg Tab Take 400 mg by mouth daily. 09/26/2021 SUMAtriptan (IMITREX) 100 MG tablet TAKE 1/2 TO 1 TAB AT ONSET OF HEADACHE MAY REPEAT IN 2 HOURS NEEDED MAX 2/DAY OR 4/WK 01/05/2024 documented as of this encounter ED Notes * Mary Carmen Greene RN - 01/14/2025 3:13 AM EDT ED Nursing Progress Note Pt states that she saw her results in the portal and will follow up with her PCP. * Christiane Monroe RN - 01/14/2025 12:07 AM EDT Presents to ED with midsternal chest pressure since approx 3pm. Reports mild SOB. Reports being under a lot of stress at this time. Reports pressure at this time is a 2/10. EKG done on arrival. documented in this encounter Plan of Treatment Upcoming Encounters Date Type Department Care Team (Late st Contact Info) Description 01/06/2025 Procedure Pass [facility] [address] [place] [address] 05/01/2025 9:00 AM EST Office Visit [facility] Medicine [address] [place] [address] Manuela Waggoner DO [address] [facility], [address] [place] [address] 06/13/2025 7:00 PM EDT Appointment [facility], Bone Density - [facility] [address] [place] [address] Paulino Sam MD [address] [place] [id number] 09/11/2025 9:30 AM EDT Appointment [facility], Mammography- [facility] [address] [place] [address] Manuela Waggoner DO [address] [facility], [address] [place] [address] [email or web address] documented as of this encounter Procedures Procedure Name Priority Date/Time Associated Diagnosis Comments TROPONIN STAT 01/14/2025 1:13 AM EDT XR CHEST PA AND LATERAL 2 VIEWS Routine 01/14/2025 12:32 AM EDT CBC AND DIFFERENTIAL STAT 01/14/2025 12:22 AM EDT TROPONIN STAT 01/14/2025 12:22 AM EDT BASIC METABOLIC PANEL STAT 01/14/2025 12:22 AM EDT ECG 12-LEAD STAT 01/14/2025 12:10 AM EDT documented in this encounter Results * Troponin (01/14/2025 1:13 AM EDT) Troponin-T, HS Gen5 <6 0 - 9 ng/L [facility] Blood 01/14/2025 1:13 AM EDT 01/14/2025 1:30 AM EDT us Sandro Benavidez DO LAB BLOOD ORDERABLES Final Re sult [facility] [address] [place] [address] * XR CHEST PA AND LATERAL 2 VIEWS (01/14/2025 12:32 AM EDT) Anatomical Region Laterality Modality Chest Computed Radiogr aphy 01/14/2025 2:06 AM EDT Impressions 01/14/2025 2:06 AM EDT No acute abnormality. Narrative 01/14/2025 2:06 AM EDT XR CHEST PA AND LATERAL 2 VIEWS Referring clinician's provided indication for this examination in [facility]: Dyspnea (Shortness of Breath) COMPARISON: XR CHEST PA AND LATERAL 2 VIEWS FINDINGS: Devices/Tubes/Lines: None. Lungs: No focal consolidation or pulmonary edema. Pleura: No pleural effusions or pneumothorax. Heart/Mediastinum: Normal cardiomediastinal silhouette. Bones/Soft Tissues: No significant abnormality. Procedure Note Eri Shi MD - 01/14/2025 XR CHEST PA AND LATERAL 2 VIEWS Referring clinician's provided indication for this examination in [facility]:Dyspnea (Shortness of Breath) COMPARISON: XR CHEST PA AND LATERAL 2 VIEWS FINDINGS: Devices/Tubes/Lines: None. Lungs: No focal consolidation or pulmonary edema. Pleura: No pleural effusions or pneumothorax. Heart/Mediastinum: Normal cardiomediastinal silhouette. Bones/Soft Tissues: No significant abnormality. IMPRESSION: No acute abnormality. us Sandro Benavidez DO IMG XR CHEST Final Result * Troponin (01/14/2025 12:22 AM EDT) Troponin-T, HS Gen5 <6 0 - 9 ng/L [facility] Blood 01/14/2025 12:2 2 AM EDT 01/14/2025 12:33 AM EDT us Sandro Benavidez DO LAB BLOOD ORDERABLES Final Re sult [address] [address] * (ABNORMAL) Basic metabolic panel (01/14/2025 12:22 AM EDT) SODIUM 137 133 - 146 mmol/L [facility] CHLORIDE 102 96 - 108 mmol/L [facility] POTASSIUM 4.4 3.3 - 5.1 mmol/L [facility] CO2 27 21 - 35 mmol/L [facility] BUN 20(H) 6 - 19 mg/dL [facility] CREATININE 0.90 0.5 - 1.5 mg/dL [facility] GLUCOSE 103(H) 70 - 99 mg/dL [facility] CALCIUM 9.5 8.4 - 10.3 mg/dL [facility] EGFR 73 >59 mL/min/1.7 3m2 [facility] Comment:Estimated glomerular filtration rate calculated using the CKD-EPI refit equation. ANION GAP 12 10 - 20 mmol/L [facility] Blood 01/14/2025 12:2 2 AM EDT 01/14/2025 12:33 AM EDT us Sandro Benavidez DO LAB BLOOD ORDERABLES Final Re sult [address] [address] * CBC and differential (01/14/2025 12:22 AM EDT) WBC 4.72 4.00 - 11.00 K/uL [facility] RBC 4.98 4.00 - 5.20 M/uL [facility] HGB 14.7 12.0 - 16.0 g/dL [facility] HCT 44.1 36.0 - 46.0 % [facility] PLT 247 150 - 450 K/uL [facility] MCV 88.6 80.0 - 100.0 fL [facility] MCH 29.5 27.0 - 31.0 pg [facility] MCHC 33.3 32.0 - 36.0 g/dL [facility] RDW 12.1 11.5 - 14.5 % [facility] MPV 10.0 8.4 - 12.0 fL [facility] NRBC 0.00 0.00 /100 WBCs [facility] ABSOLUTE NRBC 0.00 0.00 K/uL [facility] DIFF METHOD Auto [facility] NEUTS 51.8 48.0 - 76.0 % [facility] LYMPHS 34.3 18.0 - 41.0 % [facility] MONOS 10.4 4.0 - 11.0 % [facility] EOS 2.5 0.0 - 5.0 % [facility] BASOS 0.8 0.0 - 1.5 % [facility] Granulocytes, immature (%) 0.2 0.0 - 0.9 % [facility] ABSOLUTE NEUTS 2.44 1.92 - 7.60 K/uL [facility] ABSOLUTE LYMPHS 1.62 0.72 - 4.10 K/uL [facility] ABSOLUTE MONOS 0.49 0.16 - 1.10 K/uL [facility] ABSOLUTE EOS 0.12 0.00 - 0.50 K/uL [facility] ABSOLUTE BASOS 0.04 0.00 - 0.15 K/uL [facility] Granulocytes, immature 0.01 0.00 - 0.09 K/uL [facility] Blood 01/14/2025 12:2 2 AM EDT 01/14/2025 12:33 AM EDT us Sandro Benavidez DO LAB BLOOD ORDERABLES Final Re sult Performing Organization Address City/State/[facility] Co de Phone Number [address] [address] * ECG 12-LEAD (01/14/2025 12:10 AM EDT) Ventricular Rate EKG/MIN 90 BPM [facility] Atrial Rate 90 BPM [facility] FL Interval 134 ms [facility] QRS Duration 126 ms [facility] QT Interval 400 ms [facility] QTC Interval 489 ms [facility] P Arab 56 degrees [facility] R Wave Arab -19 degrees [facility] T Wave Arab 84 degrees [facility] 01/14/2025 12:1 0 AM EDT 01/15/2025 8:32 AM EDT Narrative [facility] - 01/15/2025 8:32 AM EDT Normal sinus rhythm Left bundle branch block Abnormal ECG No previous ECGs available Confirmed by Francisco Murphy ([id number]) on 01/15/2025 8:32:26 AM us Sandro Benavidez DO ECG ORDERABLES Final Result [facility] documented in this encounter Visit Diagnoses Not on filedocumented in this encounter Active and Recently Administered Medications Additional Health Concerns Assessment Noted Time PHQ-2 Depression Total Score: 0 12/23/19 23 1:04 PM EDT documented as of this encounter Care Teams Steel Manager Relationship Specialty Start Date End Date Manuela Waggoner DO [address] [place] [address] [address] [place] [address] [email or web address] PCP - General Family Medicine 11/28/19 Brenden Carvajal DO [address] [place] [address], [facility] [address] [place] [address] Historical LMR Provider 01/12/17 Manuela Waggoner DO [address] [place] [address], [facility] [address] [place] [address] Historical LMR Provider 01/12/17 Crow Man MD [email or web address] Historical LMR Provider 01/12/17 documented as of this encounter Additional Source Comments The information contained in this document represents components of the legal health record. It is not the complete legal health record.[facility]
[2025-01-19 15:04] VITALS: BP 80/60; PULSE 87; O2SAT 97; BMI 34.6
--- NOTE | 2025-01-19 15:04 | A.OFFVIS_ITS ---
Vital Signs 01/19/25 15:04 Height 5 ft Weight 177 lb BMI 34.6 BP 80/60 L Blood Pressure Location Rt brachial Position Sitting Pulse 87 Pulse Source Pulse Oximeter Pulse Oximetry (%) 97 Oxygen Delivery Method Room Air Intake Visit Reasons: Follow Up 6mo Intake Note: Patient presents 6 month follow up post concussive symptoms. Videotape Recording Engineer Required: No Accompanied by: Self / Same As Patient Allergies adhesive Allergy (Verified 01/19/25 15:06) Rash beeswax Allergy (Verified 01/19/25 15:06) Unknown tree nut Allergy (Verified 01/19/25 15:06) Hives dairy Adverse Reaction (Severe, Uncoded 01/19/25 15:06) Constipation Medication List - Last Reconciled 01/19/25 by CHANNING Conti bupropion HCl XL 300 mg PO QAM cholecalciferol (vitamin D3) 125 mcg PO DAILY dextroamphetamine-amphetamine 10 mg ER 1 cap PO QAM dextroamphetamine-amphetamine 5 mg 1 tab PO .afternoon epinephrine IM DIRECTED magnesium oxide 400 mg PO DAILY 30 days [id number] 400-250-375 mcg 1 tab PO DAILY riboflavin (vitamin B2) 400 mg (4 x 100 mg) PO DAILY 30 days sumatriptan succinate 50 - 100 mg orally at onset of headache, may repeat in 2 hrs PRN; max 2 tabs/day or 4 tabs/week (may take with Tylenol or NSAID) 30 days HPI Comments Details: 59-yr-old female presents for f/u visit of post-concussive tx. She feels she continues to make improvements, however she can continue to have low grade symptoms. 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 Her cognitive function is improving, but still has difficulty processing new information; and also increased difficulty concentrating if she misses a dose of Adderall. She has started seeing a new PT, who specializes in postconcussive tx. This has been quite helpful for her neck symptoms. Though may have a bit of increased cognitive symptoms immediately following a treatment session. Can still have difficulties with vision convergence at mid-range vision. She is still photophobic, and relies on her light blocking glasses. She notes that the photophobia is reduce when she takes the Adderall. She continues to be followed by the vision therapists. She continues to use prism and light blocking glasses. She found OTC Co-Q 10 to be helpful, and then paused it due when the 1st bottle ran out, but headaches returned a bit, so she resumed it. However in the last few weeks, she has been forgetting to take the B2 and CO-Q 10 in the am, but is consistent w/ the Mag. She plans on resuming the Co Q10 and B2 again as these have been helpful. She is needing to use less as needed triptans. 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 She also reports she has been helping her mother move over the last several months from the [facility] to a local [facility]. Initially she was tolerating this ok- her partner was driving- but was only needing to use her sumatriptan about once a month. However, in the last month, she actually had to actually move her mother and now has to prepare her mother's condo to be sold. Then, she noticed she was having increased headaches, was taking sumatriptan a few times a week- which was helpful. But then she realized the headaches are not a/w visual symptoms or just very mild visual symptoms. So now using tylenol 500mg qd prn- which is effective- but headache might come back later in the day-is finding herself using it almost daily. Not noticing herself being off-balance. Also noticing some mild cognitive processing delays. She is taking the riboflavin and magnesium regularly. She is on adderall again- does not always take the adderal 5mg consistently. Continues to work with vision therapist- has prisms. Previous request for transition of care specialist was denied by work comp. She has just started seeing a private chiropractor- doing OMT type tx- feels it is starting to help. 01/01/2024, HPI: She is still having some postconcussive symptoms, but much less often and less intense. Pt has started wearing 1 of the 3 pairs of specific glasses w/ prisms and medical light blocking tints, which have been helping. She is still waiting to receive the other 2 glasses- for the computer and for reading. Over the summer, she ended up without her Adderall for several days when she travelled to help her mother and ended up staying there for 2 weeks- and found that she did not do as well as she thought she would have off the Adderall. But now is able to function a bit better if she misses an afternoon dose of Adderall. She is now working full days [employer], and 3 hrs on and . 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 She reports that she did sleep another time at her mother's and did not have her usual thin pillow (which she has needed to use since the accident), and since she has felt that her neck has not been right since, she notices when she turns her head to the right it can trigger a headache. She has done PT in the past which has helped but has had to repeat it after a year or so. She has been having more low grade headaches. She has not been having many more severe headaches. She does take, but may forget to take her B2 and Mag at times. Sumatriptan 25-50mg, can be very effective w/o side effects. PFSH Medical History Depression Anemia Endometriosis Kidney stones Surgical History H/O nephrolithotomy with removal of calculi [place] teeth extracted Family History Father Diabetes PSP (progressive supranuclear palsy) Mother Macular degeneration Social History Alcohol intake: never Patient Tobacco Use Status: Never used Tobacco Current occupation: [employer] of [employer] ENT Reports Normal hearing present Neuro Reports Normal hearing present Physical Exam Vital Signs: Last Vital Signs Pulse 87 01/19/25 15:04 BP 80/60 L 01/19/25 15:04 Pulse Ox 97 01/19/25 15:04 Oxygen Delivery Method Room Air 01/19/25 15:04 BMI result Body Mass Index 34.6 Const General: cooperative and no acute distress Orientation/consciousness: patient oriented x3 Eyes Pupils: Equal, round and reactive pupils present Resp Effort & Inspection: normal respiratory effort and able to speak in complete sentences Neuro Other: Photophobic Impaired mid range vision with and without glasses- in both bilateral monocular and binocular vision. General: patient oriented x3 Cranial nerves: Yes Equal, round and reactive pupils present, Yes Normal facial strength present, Yes Normal hearing present, Yes Ability to bilaterally rotate head present and Yes Ability to bilaterally elevate shoulders present Cognition (Neuro): normal cognition Motor exam (neuro): 5/5 motor strength present throughout Psych Appearance: grossly normal Mental Status: mental status grossly normal Speech and movement: Normal speech and movement present Affect: normal affect Attitude: cooperative Assessment & Plan Assessment & Plan (1) Postconcussive syndrome: Comment: s/p fall at work on 05/02/21. Headache, dizziness, cognitive difficulties, photophobia. Improving. Code(s): F07.81 - Postconcussional syndrome Category: Medical (2) Migraine headache: Code(s): G43.909 - Migraine, unspecified, not intractable, without status migrainosus Category: Medical Qualifiers: Intractability: not intractable Migraine type: unspecified Status migrainosus presence: without status migrainosus Qualified Code(s): G43.909 - Migraine, unspecified, not intractable, without status migrainosus (3) Cervicalgia: Comment: Improving Code(s): M54.2 - Cervicalgia Category: Medical (4) Cognitive dysfunction: Comment: Improving with neurostimulant therapy and workplace accommodations Code(s): F09 - Unspecified mental disorder due to known physiological condition Category: Medical Plan For post-concussive headache w/ migraine features and photophobia: Tylenol 500mg every 4-6 hrs prn. Sumatriptan 100 mg tablet, 1/2-1 tab at onset of migraine headache, or associated symptoms- photo/phono/osmophobia.? May repeat in 2 hours x1.? May take with OTC NSAID such as ibuprofen or naproxen, or acetaminophen. For prevention of post concussive headaches with migraine features: Co-Q 10 400mg daily in the morning- taken with or after a meal. Riboflavin and magnesium for migraine headache prevention. If?ineffective, consider revisiting Amitriptyline. For post-concussive cervicalgia which can exacerbate headaches: Continue PT and PT exercises. Acupuncture and chiropractic therapy as needed ? For photophobia: Continue Vision tx Continue medical grade light filtering glasses w/ prisms as prescribed- she has 3 pairs for different tasks. Continue limiting blue light exposure.? She may benefit from trying green light exposure, such as using an OTC migraine green light bulb in the background. Do not wear sunglasses indoors, although may wear these outdoors. ? For sleep: Continue CPAP. For cognition: She may continue Adderall- currently managed by PCP, however if need be we can resume managing this. 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 ? Follow-up in 6 months or sooner as needed. Medications: New coenzyme Q10 Daily in a.m.. Take with higher fat food 400 mg PO DAILY 90 caps 3RF 90 days Coding Level of Care Code Est Pt Level 4 (13471) Diagnoses Postconcussive syndrome F07.81 Migraine without status migrainosus, not intractable, unspecified migraine type G43.909 Intractability: not intractable Migraine type: unspecified Status migrainosus presence: without status migrainosus Cervicalgia M54.2 Cognitive dysfunction F09
--- OUTSIDE RECORDS SUMMARY | 2025-01-19 18:36 | XMS_ITS | Patient Health Record ---
Author Organization [address] Location Address [address] [place] [id number] Support Name Relationship Address Phone Pramod Anne Guarantor Unknown [phone] Reason For Referral No Information Social History Sex Assigned At : Social History Observation Description Sex Assigned At Female Plan Of Treatment No Information Insurance Providers Payer Name Payer Address Payer Phone Subscriber Number Group Number Insured Name Patient Relationship to Insured Coverage Start Date Coverage End Date [employer] [address] [id number] Anne Benavidez Self - patient is the insured
--- OUTSIDE RECORDS SUMMARY | 2025-01-19 18:36 | XMS_ITS | Encounter Summary ---
Author Organization [facility] Address [address] [facility] [address] [place] [address] Phone Care Team Providers Care Senior It Business Analyst Name Role Phone Brenden Carvajal Kathrine DO Unavailable Manuela Waggoner DO Unavailable [phone] Crow Man MD Unavailable [email or web address] Manuela Waggoner DO Primary Care Provider [phone] Encounter Details Date Type Department Care Team (Latest Contact Info) Description 01/06/2025 Transcribe Orders Virtual Department [address] [place] [address] Manuela Waggoner, DO [address] [facility], [address] [place], [place] [id number] [email or web address] Breast screening (Primary Dx) Social History Tobacco Use Types Packs/Day Years [...] as food, clothing, or medical care? No 03/22/2024 In the past 12 months have y ou been in a relationship with a person who hurts, threatens, or tries to control you? No 03/22/2024 Are you denied basic needs s uch as food, clothing, or medical care? No 03/22/2024 In the past 12 months have y ou been in a relationship with a person who hurts, threatens, or tries to control you? No 03/22/2024 Comments No Sex and Gender Information Value Date Recorded Sex Assigned at Female 09/08/2018 3:07 AM EDT Legal Sex Female 9:44 PM EDT Gender Identity Female 09/08/2018 3:07 AM EDT Sexual Orientation Straight 09/08/2018 3: 07 AM EDT documented as of this encounter Plan of Treatment Upcoming Encounters Date Type Department Care Team (Late st Contact Info) Description 01/06/2025 Procedure Pass [address] [address] 05/01/2025 9:00 AM EST Office Visit [facility] [address] [place] [address] Manuela Waggoner DO 234 [facility] 7 [place] [address] 06/13/2025 7:00 PM EDT Appointment [facility] [address] [address] Paulino Sam MD [address] [place] [address] 09/11/2025 9:30 AM EDT Appointment [address] [address] Manuela Waggoner DO [address] [address] Scheduled Orders Name Type Priority Associated Diagnoses Orde r Schedule Mammogram Screening (Bilateral) Imaging Routine Breast screening Expected: 02/06/2025, Expires: 01/06/2026 documented as of this encounter Visit Diagnoses Diagnosis Breast screening- Primary Breast screening, unspecified documented in this encounter Additional Health Concerns Assessment Noted Time PHQ-2 Depression Total Score: 0 12/23/19 23 1:04 PM EDT documented as of this encounter Care Teams Senior It Business Analyst Relationship Specialty Start Date End Date Manuela Waggoner DO [address] [place] [address] [address] [place] [address] PCP - General Family Medicine 11/28/19 Brenden Carvajal DO [address] [place] [address] [address] [place] [address] [email or web address] Historical LMR Provider 01/12/17 Manuela Waggoner DO [address] [place] [address] [address] [place] [address] [email or web address] Historical LMR Provider 01/12/17 Crow Man MD [email or web address] Historical LMR Provider 01/12/17 documented as of this encounter Additional Source Comments The information contained in this document represents components of the legal health record. It is not the complete legal health record.[facility]
--- OUTSIDE RECORDS SUMMARY | 2025-01-19 18:36 | XMS_ITS | Encounter Summary ---
Author Organization [facility] Address [address] [facility] [address] [place] [address] Phone Care Team Providers Care Data Center Engineer Name Role Phone Brenden Carvajal Kathrine DO Unavailable Manuela Waggoner DO Unavailable [phone] Crow Man MD Unavailable [email or web address] Manuela Waggoner DO Primary Care Provider [phone] Krystal Da Silva SAUSAGE STRINGER Unavailable [phone] Encounter Details Date Type Department Care Team (Latest Contact Info) Description 10/02/2022 Transcribe Orders Virtual Department [address] [place] [address] Manuela Waggoner, DO 234 [facility], [address] [place] [address] [email or web address] Breast screening (Primary Dx) Social History Tobacco Use Types Packs/Day Years Used Date Smoking Tobacco: Never Smokeless Tobacco: Never Alcohol Use Standard Drinks/Week Comments Yes 3 (1 standard drink = 0.6 oz pure alcohol) Is drinking non-alcoholic beer a risk factor? Child or Family Care Answer Date Record ed Do you have problems with on e of the following making it difficult for you to work, study, or receive health care? No 02/12/2022 Education Answer Date Recorded Are you interested in help w ith more adult education (for example, completing high school, GED, job training, learning the [place] language, technical skills, or developing parenting skills)? No 02/12/2022 Food Answer Date Recorded Within the past [...] your housing situation today? I have roxann sing 02/12/2022 How many times have you move [...] with a working camera? Not on file Comments No Sex and Gender Information Value Date Recorded Sex Assigned at Female 09/08/2018 3:07 AM EDT Legal Sex Female 9:44 PM EDT Gender Identity Female 09/08/2018 3:07 AM EDT Sexual Orientation Straight 09/08/2018 3: 07 AM EDT documented as of this encounter Plan of Treatment Upcoming Encounters Date Type Department Care Team (Late st Contact Info) Description 01/06/2025 Procedure Pass [facility] [address] [place] [address] 05/01/2025 9:00 AM EST Office Visit [facility] [address] [place] [address] Manuela Waggoner, DO [address] [facility], [address] [place] [address] [email or web address] 06/13/2025 7:00 PM EDT Appointment [facility], Bone Density - [address] [address] Paulino Sam MD [address] [place] [phone] [email or web address] 09/11/2025 9:30 AM EDT Appointment [facility], [address]amm[address] [address] Manuela Waggoner, [address] [place] [address], [address] [place] [address] [email or web address] documented as of this encounter Results * BI MAMMOGRAM SCREENING WITH TOMOSYNTHESIS WITH CAD (BILATERAL) (02/12/2023 11:23 AM EST) Anatomical Region Laterality Modality Breast Left, Breast Right, Breast Bilateral Bila teral Mammography 02/13/2023 7:44 AM EST Impressions 02/13/2023 7:46 AM EST No mammographic evidence of malignancy in either breast. Annual screening mammography is recommended. BI-RADS CATEGORY: 1 - Negative. The patient will be notified of the results and recommendations. Narrative 02/13/2023 7:46 AM EST BI MAMMOGRAM SCREENING WITH TOMOSYNTHESIS WITH CAD (BILATERAL) Additional patient information: Screening. COMPARISON: Comparison is made with relevant prior imaging. Breast composition: There are scattered fibroglandular densities. FINDINGS: There has been no change in the mammographic findings since previous examination. No abnormal masses, suspicious calcifications, or other significant findings are identified mammographically in either breast. Procedure Note Emiliano Ferrara MD - 02/13/2023 BI MAMMOGRAM SCREENING WITH TOMOSYNTHESIS WITH CAD (BILATERAL) Additional patient information: Screening. COMPARISON: Comparison is made with relevant prior imaging. Breast composition: There are scattered fibroglandular densities. FINDINGS: There has been no change in the mammographic findings since previousexamination. No abnormal masses, suspicious calcifications, or other significantfindings are identified mammographically in either breast. IMPRESSION: No mammographic evidence of malignancy in either breast. Annual screening mammography is recommended. BI-RADS CATEGORY: 1 - Negative. The patient will be notified of the results and recommendations. Manuela Waggoner DO IMG MG EXAMS Final Result documented in this encounter Visit Diagnoses Diagnosis Breast screening- Primary Breast screening, unspecified Breast screening Breast screening, unspecified documented in this encounter Additional Health Concerns Assessment Noted Time PHQ-2 Depression Total Score: 0 02/13/20 22 8:31 PM EST documented as of this encounter Care Teams Data Center Engineer Relationship Specialty Start Date End Date Manuela Waggoner DO [address] [place] [address] PCP - General Family Medicine 11/28/19 Brenden Carvajal DO [address] [place] [address] [email or web address] Historical LMR Provider 01/12/17 Manuela Waggoner DO [address] [place] [address] Historical LMR Provider 01/12/17 Crow Man MD [email or web address] Historical LMR Provider 01/12/17 Krystal Da Silva, SAUSAGE STRINGER [address] [place] [address] [email or web address] PHCM Contract Programmer 12/10/22 02/28/24 documented as of this encounter Additional Source Comments The information contained in this document represents components of the legal health record. It is not the complete legal health record.[facility]
--- OUTSIDE RECORDS SUMMARY | 2025-01-19 18:36 | XMS_ITS | Encounter Summary ---
Author Organization [facility] Address [address] [facility] [address] [place] [address] Phone Care Team Providers Care Fun House Attendant Name Role Phone Brenden Carvajal DO Unavailable Manuela Waggoner DO Unavailable [phone] Crow Man MD Unavailable [email or web address] Manuela Waggoner DO Primary Care Provider [phone] Krystal Da Silva ACCOUNTANT PROPERTY Unavailable [phone] Encounter Details Date Type Department Care Team (Latest Contact Info) Description 11/06/2022 Transcribe Orders Virtual Department [address] [place] [address] Paulino Sam MD [address] [place] [address] [email or web address] Hyperparathyroidism (Primary Dx) Social History Tobacco Use Types Packs/Day Years Used Date Smoking Tobacco: Never Smokeless Tobacco: Never Alcohol Use Standard Drinks/Week Comments Not Currently 0 (1 standard drink = 0.6 oz [...] high school, GED, job training, learning the [place] language, technical skills, or developing parenting skills)? [...] st Contact Info) Description 01/06/2025 Procedure Pass [facility], [facility] [address] [place] [address] 05/01/2025 9:00 AM EST Office Visit [facility] Family Medicine [address] [place] [address] Manuela Waggoner, DO [address] [facility], [address] [place] [address] 06/13/2025 7:00 PM EDT Appointment [facility], Bone Density - [address] [address] Paulino Sam MD [address] [place] [address] 09/11/2025 9:30 AM EDT Appointment [facility], Mammography- [address] [address] Manuela Waggoner, DO [address] [place] [address], [address] [place] [address] documented as of this encounter Results * BD DXA SPINE AND HIP WITH FOREARM (08/31/2023 11:20 AM EDT) Anatomical Region Laterality Modality Bone Density Bone Density 09/03/2023 11:4 2 AM EDT Impressions 09/03/2023 8:21 PM EDT Osteopenia based upon bone mineral density in the lumbar spine and bilateral hips. ATTESTATION: I, Raul Beltran as teaching physician, have reviewed the images for this case and if necessary edited the report originally created by Orestes Oakley. Narrative 09/03/2023 8:21 PM EDT BD DXA SPINE AND HIP WITH FOREARM INDICATION: Primary hyperparathyroidism. Screening for osteoporosis. COMPARISON: None. Evaluation of the lumbar spine, both hips and left forearm is obtained and appears technically adequate. The lumbar spine from L1 through L4 discloses a total bone mineral density of 0.812 g/cm2 T-score: -2.1 Z-Score: -0.7 WHO Classification: Osteopenia The right hip (total) has a total bone mineral density of 0.809 g/cm2 T-score: -1.1 Z-Score: -0.1 WHO Classification: Osteopenia The right hip (neck) has a total bone mineral density of 0.682 g/cm2 T-score: -1.5 Z-Score: -0.2 The left hip (total) has a total bone mineral density of 0.757 g/cm2 T-score: -1.5 Z-Score: -0.5 WHO Classification: Osteopenia The left hip (neck) has a total bone mineral density of 0.650 g/cm2 T-score: -1.8 Z-Score: -0.5 The left forearm has a total bone mineral density of 0.563 g/cm2 T-score: 0.0 Z-Score: 1.3 WHO Classification: Normal FRAX: 10-Year Fracture Risk Major Osteoporotic Fracture: 8.4% Hip Fracture: 0.8% Procedure Note Raul Beltran MD - 09/03/2023 BD DXA SPINE AND HIP WITH FOREARM INDICATION: Primary hyperparathyroidism. Screening for osteoporosis. COMPARISON: None. Evaluation of the lumbar spine, both hips and left forearm is obtained andappears technically adequate. The lumbar spine from L1 through L4 discloses a total bone mineral densityof 0.812 g/cm2 T-score: -2.1 Z-Score: -0.7 WHO Classification: Osteopenia The right hip (total) has a total bone mineral density of 0.809 g/cm2 T-score: -1.1 Z-Score: -0.1 WHO Classification: Osteopenia The right hip (neck) has a total bone mineral density of 0.682 g/cm2 T-score: -1.5 Z-Score: -0.2 The left hip (total) has a total bone mineral density of 0.757 g/cm2 T-score: -1.5 Z-Score: -0.5 WHO Classification: Osteopenia The left hip (neck) has a total bone mineral density of 0.650 g/cm2 T-score: -1.8 Z-Score: -0.5 The left forearm has a total bone mineral density of 0.563 g/cm2 T-score: 0.0 Z-Score: 1.3 WHO Classification: Normal FRAX: 10-Year Fracture Risk Major Osteoporotic Fracture: 8.4% Hip Fracture: 0.8% IMPRESSION: Osteopenia based upon bone mineral density in the lumbar spine andbilateral hips. ATTESTATION: I, Raul Beltran as teaching physician, have reviewed theimages for this case and if necessary edited the report originally createdby Orestes Oakley. Paulino Sam MD IMG BD BONE DENSITY DEXA Fin al Result documented in this encounter Visit Diagnoses Diagnosis Hyperparathyroidism- Primary Hyperparathyroidism, unspecified Hyperparathyroidism Hyperparathyroidism, unspecified documented in this encounter Additional Health Concerns Assessment Noted Time PHQ-2 Depression Total Score: 0 02/13/20 22 8:31 PM EST documented as of this encounter Care Teams Fun House Attendant Relationship Specialty Start Date End Date Manuela Waggoner DO [address] [facility] [address] [place] [address] PCP - General Family Medicine 11/28/19 Brenden Carvajal DO [address] [place] [address] Historical LMR Provider 01/12/17 Manuela Waggoner DO [address] [place] [address] [address] [place] [address] Historical LMR Provider 01/12/17 Crow Man MD [email or web address] Historical LMR Provider 01/12/17 Krystal Da Silva, [address] [address] PHCM Kier Tender 12/10/22 02/28/24 documented as of this encounter Additional Source Comments The information contained in this document represents components of the legal health record. It is not the complete legal health record.[facility]
--- OUTSIDE RECORDS SUMMARY | 2025-01-19 18:36 | XMS_ITS | Encounter Summary ---
Author Organization [facility] Address [address] [facility] [address] [place] [address] Phone Care Team Providers Care Survey Research Professor Name Role Phone Maral Quinn CEMENT BREAKER Unavailable [phone] Brenden Carvajal DO Unavailable Darby Saba MD Unavailable [phone] Manuela Polk NP Unavailable Unavailable Manuela Waggoner DO Unavailable [phone] Crow Man MD Unavailable [email or web address] Richard Pacheco MD Unavailable Christofer Keen MD Unavailable [phone] Rich Pleitez MD Unavailable Manuela Waggoner DO Primary Care Provider [phone] Krystal Da Silva [facility] Unavailable [phone] Encounter Details Date Type Department Care Team (Late st Contact Info) Description 01/04/2020 Procedure Pass [address] [id number] Social History Tobacco Use Types Packs/Day Years Used Date Smoking Tobacco: Never Smokeless Tobacco: Never Alcohol Use Standard Drinks/Week Comments Yes 0 (1 standard drink = 0.6 oz pur e alcohol) Rare Comments No Sex and Gender Information Value Date Recorded Sex Assigned at Female 09/08/2018 3:07 AM EDT Legal Sex Female 9:44 PM EDT Gender Identity Female 09/08/2018 3:07 AM EDT Sexual Orientation Straight 09/08/2018 3: 07 AM EDT documented as of this encounter Plan of Treatment Upcoming Encounters Date Type Department Care Team (Late st Contact Info) Description 01/06/2025 Procedure Pass [address] [address] 05/01/2025 9:00 AM EST Office Visit [facility] Medical [facility] Medicine [address] [place] [address] Manuela Waggoner, DO [address] [facility] [address] [place] [address] 06/13/2025 7:00 PM EDT Appointment [address] [address] Paulino Sam MD [address] [place] [address] 09/11/2025 9:30 AM EDT Appointment [address] [address] Manuela Waggoner, DO [address] [address] documented as of this encounter Visit Diagnoses Not on filedocumented in this encounter Additional Health Concerns Infection Onset Date Last Indicated Resolved Time 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 09/22/2018 05/14/2022 1:41 AM EST Assessment Noted Time PHQ-2 Depression Total Score: 0 12/25/19 10:40 AM EDT documented as of this encounter Care Teams Survey Research Professor Relationship Specialty Start Date End Date Manuela Waggoner DO [address] [place] [address] [address] [place] [address] PCP - General Family Medicine 11/28/19 Maral Quinn NP [address] [place] [address] Historical LMR Provider 01/12/17 Brenden Carvajal DO [address] [place] [address] 7 [place] [address] Historical LMR Provider 01/12/17 Darby Saba MD [address] [place] [address] 3 [place] [address] Historical LMR Provider 01/12/17 2 Manuela Polk CEMENT BREAKER [address] [place] [address] Historical LMR Provider 01/12/1704/06 Manuela Waggoner DO [address] [place] [address] 7 [place] [address] Historical LMR Provider 01/12/17 Crow Man MD [email or web address] Historical LMR Provider 01/12/17 Richard Pacheco MD [address] [place] [address], [address] [place] [address] Historical LMR Provider 01/12/17 04/06/21 Christofer Keen MD [address] [place] [address], [address] [address] Historical LMR Provider 01/12/17 04/06/21 Rich Pleitez MD [address] [place] [id number] Historical LMR Provider 01/12/17 Krystal Da Silva, [facility] [address] [place] [address] [email or web address] PHCM Insulation Board Back Tender 12/10/22 02/28/24 documented as of this encounter Additional Source Comments The information contained in this document represents components of the legal health record. It is not the complete legal health record.[facility]
--- OUTSIDE RECORDS SUMMARY | 2025-01-19 18:36 | XMS_ITS | Clinical Summary ---
Author Organization [facility] Address [address] [facility] [address] [place] [phone] Phone Care Team Providers Care Development System Efficiency Manager Name Role Phone Brenden Carvajal Kathrine DO Unavailable Manuela Waggoner DO Unavailable [phone] Crow Man MD Unavailable [email or web address] Manuela Waggoner DO Primary Care Provider [phone] Allergies Active Allergy Reactions Criticality Noted Date Comments Adhesive Rash Low 09/15/2017 Beeswax 12/27/2018 Latex 02/19/2024 Tree Nut Hives Low 12/24/2017 Medications riboflavin, vitamin B2, (,VITAMIN B-2,) 100 mg Tab Take 400 mg by mouth daily. 2 Active magnesium oxide (MAG-OX) 400 mg (241.3 mg elemental) tablet Take 1 tablet by mouth daily. 2 Active EPINEPHrine 0.3 mg/0.3 mL auto-injector as directed 2 each 1 3 Active buPROPion (WELLBUTRIN XL) 300 MG ER 24 hr tabletIndicatio ns:Anxiety and depression TAKE 1 TABLET BY MOUTH EVERY DAY 90 tablet 1 3 Active dextroamphetami ne-amphetamine (ADDERALL XR) 10 MG 24 hr capsule Take 10 mg by mouth every morning. 4 Active dextroamphetami ne-amphetamine (ADDERALL) 5 mg Tab Take 5 mg by mouth nightly at bedtime. 4 Active cholecalciferol , vitamin D3, 25 mcg (1,000 unit) capsule Take 1 capsule by mouth. 50 mcg BID Active SUMAtriptan (IMITREX) 100 MG tablet TAKE 1/2 TO 1 TAB AT ONSET OF HEADACHE MAY REPEAT IN 2 HOURS NEEDED MAX 2/DAY OR 4/WK 4 Active OPZELURA 1.5 % Crea APPLY TO AREA OF VITILIGO ON FACE TWICE DAILY 5 Active DENTAGEL 1.1 % Gel USE ONCE DAILY DIRECTED PREFERABLY AT BEDTIME EXPECTORATE, DO NOT RINSE 5 Active buPROPion (WELLBUTRIN XL) 150 MG ER 24 hr tablet 5 Active Active Problems Problem Noted Date Diagnosed Date Umbilical abnormality 08/24/2024 Assessment & Plan (08/24/2024 4:12 PM EDT): Maulik presents for a serosanguineous discharge of the umbilical region. The erythema around the site has resolved status post the antibiotics that I gave her at last visit. She notes that this serosanguineous discharge has been going on for a long time-years. I cultured this and I will update her with the result but my concern is a possible fungal infection. I wrote for Lotrisone cream to be applied to the umbilical region twice a day for the next 14 days and to repeat this if this is still present after the 14-day cycle. I informed her to call if this does not resolve at which point I would refer her to dermatology for consult. She will call if there are any other issues or concerns. She understands and agrees. Cellulitis of umbilicus 08/04/2024 Assessment & Plan (08/04/2024 5:27 PM EDT): I diagnosed Maulik with a cellulitis of the umbilical region many treated her with Keflex-to be taken as directed and also gave guidance that she can take a probiotic. She was treated initially with an antibiotic ointment a few weeks ago however this did not resolve the infection thus I wrote for p.o. antibiotic. I informed her to call if there are any other issues or concerns or if this continues despite taking the Keflex. She understands and agrees. Osteopenia 06/24/2022 Overview (04/27/2024): 2022 Ca2+, Vitd WT bearing/resisted ex [place] following. Assessment & Plan (04/27/2024 9:59 AM EST): Will consider repeat Dexa next yr. 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 Continue as per specialty Assessment & Plan (06/23/2023 12:44 PM EDT): Overall continued improvement however, the vision therapy has caused some slight exacerbation and some work restrictions have been placed by the neuro guide dog instructor. Today time spent reviewing her multiple pg FMLA documents and filling that out for her. She will have her neuro guide dog instructor also fill out paperwork for her employer as they have been managing her work restrictions currently. Assessment & Plan (03/03/2023 4:43 PM EST): She is reporting significant improvement today. This is very encouraging. Continue Vyvanse rx'd by Dr. Wasserman. I recommend continuing current treatment and work hours up to 7.5 hours 5d per week from home as tolerated. Return to the vision therapy when and if her insurance will cover. I am hopeful that her symptoms may completely resolve even without it. Continue daily exercise as tolerated A new letter for work is being written and sent. Assessment & Plan (10/14/2022 3:50 PM EDT): Overall, she continues to improve (with mild flares along the way-) She is working with Dr. Wasserman on finding the right stimulant and dose- currently on Vyvanse rx'd by Dr. Wasserman. I recommend continuing current treatment and work hours up to: 4-7.5 hours 5d per week from home as tolerated. Continue with the vision therapy for the visual sx + possibly the sound sensitivity She has finished the kinesiology class project through [facility] which was also helpful. She has been doing great with the walking exercise (this has been helpful for her sx). A new letter for work is being written and sent. Cooking safety concerns: Speech and language consult is pending Until then, she is advised not to cook/ while alone. Neck pain- as related to this syndrome/injury: No indication for urgent imaging. PT pending next month Gentle stretching advised. Assessment & Plan (05/21/2021 10:35 AM EST): Ongoing persistent symptoms with minimal overall improvement in past week Will continue OOW Increase outdoor light exercise as tolerated F/u 2 weeks fr ability to RTW- goal to return 1/2 time at that point Please make concussion clinic appt PT will be sending FMLA paperwork for completion Assessment & Plan (05/06/2021 2:07 PM EST): Hx of multiple concussions in childhood & as adult Now having post concussive symptoms after a minor fall w/o head injury. Explained mechanism of concussion by cervical hyperextension. Reviewed brain rest recommendations. She will take rest of today off to rest. Tomorrow she will try some easy, screen free tasks. Thursday she will start adding in a few hours of screen time, with breaks as needed. She will continue to add back focused activities through the week, but use brain rest as dictated by sx. Encouraged low impact physical exercise daily. Vaginal atrophy 04/30/2020 Assessment & Plan (04/30/2020 9:32 AM EST): Discussed that endometriosis is quiescent after menopause. Using vaginal estradiol does not result in systemic changes in hormone levels and has no impact on endometriosis. Will restart Yuvafem. 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 Endometrial tissue- dx was benign tissue by [place] [facility] Nephrolithiasis 02/02/2020 Overview (02/02/2020): Followed by Dr. Lopez Assessment & Plan (04/27/2024 9:58 AM EST): No acute issue. Hepatic steatosis 04/08/2018 Overview (04/08/2018): Incidental finding on CT 03/2018 Assessment & Plan (04/27/2024 9:58 AM EST): Monitor. Weight management. Endocrine disorder 12/24/2017 Overview (12/24/2017): Dr. 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 Assessment & Plan (04/27/2024 9:49 AM EST): NO acute issue. Cotninue as per [place] Depression with anxiety 12/24/2017 Overview (03/03/2023): Stable on Wellbutrin. Assessment & Plan (04/27/2024 9:59 AM EST): She is stable. She easily contracts for safety verbally. Dyslipidemia 02/04/2017 Overview (04/27/2024): Lifestyle modification. Assessment & Plan (04/27/2024 9:48 AM EST): I am missing the LDL on her most recent labs from her specialist. Will reorder. Endometriosis 02/04/2017 Granados's neuroma of right foot 02/04/2017 Obesity 02/04/2017 Overview (04/27/2024): Lifestyle modification. There is hx disordered eating. Briefly discussed GLP but she prefers lifestyle which I agree. Assessment & Plan (04/27/2024 9:49 AM EST): Continue current POC Arthritis 02/04/2017 Overview (04/27/2024): Of multiple joints. 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 Thoracic and pulmonary consultations will be obtained. Antibiotics will be continued in the form of Zosyn for anaerobic coverage and to prevent mediastinitis and mediastinal infection. Oxygen therapy will be initiated to help with reabsorption of subcutaneous air and improvement of subcutaneous emphysema. Patient will be n.p.o. at this time as procedures may be needed. She is relatively stable at this time regarding her airway and therefore close monitoring is appropriate. Given the fact that she is n.p.o., I will start her on IV fluids. History of nephrolithiasis 09/15/2017 0 09/08/2018 Overview (12/24/2017): Dr. Andres Godinez 09/15/2017 04/27/2024 Overview (04/27/2024): lifestyle Assessment & Plan (04/27/2024 9:52 AM EST): Seems in remission Assessment & Plan (03/01/2018 12:34 PM EST): Flaring up a little bit. Not severe. Understands the need for physical therapy and initiation again of her home exercise program as well as following a low inflammatory Mediterranean style diet. Of her questions were answered. Greater than 50% of this 28-minute visit was spent in [id number] conversation with the patient. Primary osteoarthritis of both knees 02/04/2017 04/27/2024 Assessment & Plan (03/01/2018 12:34 PM EST): Weight reduction quadricep strengthening well fitting supportive shoes with good shock absorption are all recommended. We may revisit the possibility of Visco supplementation. We will be only if things worsen. Generalized anxiety disorder 02/04/2017 03/03/2023 Hepatic cyst 02/04/2017 04/27/2024 History of anemia 02/04/2017 09/08/2018 Low back pain 02/04/2017 04/27/2024 Assessment & Plan (03/01/2018 12:33 PM EST): As a consequence of multilevel lumbar spondylitic changes and there is no evidence of radiculopathy sciatica or neurogenic claudication. She understands the need for quadricep strengthening, well fitting supportive shoes with good shock absorption, weight control, and core strengthening. She may continue to use acetaminophen. We talked about the use of CBD oil as well as of curcumin. 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 Encounters Date Type Department Care Team Description 01/18/2025 Transcribe Orders Virtual Department [address] [place] [address] Paulino Sam MD Hyperparathyroidism , unspecified (Primary Dx) 01/14/2025 12:02 AM EDT - 01/14/2025 3:14 AM EDT Emergency [facility] [address] [place] [address] Discharge Disposition: Left Without Being Seen 01/06/2025 Transcribe Orders Virtual Department [address] [place] [address] Manuela Waggoner, DO Breast screening (Primary Dx) 11/09/2024 4:00 PM EDT Office Visit [facility] [address] [place] [address] Malka Angulo MD Injury of toe on left foot, initial encounter (Primary Dx) 11/08/2024 Telephone [facility] [address] [place] [address] Manuela Waggoner, DO Triage (Toe Injury ); clinical call 11/07/2024 7:32 PM EDT - 11/07/2024 11:35 PM EDT Emergency [facility] [address] [place] [address] Discharge Disposition: Left Without Being Seen from Last 3 Months Immunizations Immunization Administration Dates Next Due COVID-19 (Pre-01/19) Pfizer Vaccine, mRNA, PF 01/16/2022,07/29/2020,07/08/2020 INFLUENZA, SPLIT VIRUS, TRIV ALENT W/ PRESERVATIVE IM 12/11/2015,01/27/2015,12/15/2013 Influenza Quadrivalent MDCK Preservative Free IM 12/13/2022 Influenza Quadrivalent Prese rvative Free IM 12/24/2021,12/27/2020,01/28/2020,2017,12/09/2016 Influenza Quadrivalent w/ Preservative IM 11/28/2018 Influenza Recombinant Nish valent Preservative Free IM 12/27/2018 Influenza trivalent preserva tive free intradermal 12/22/2012 Influenza, Unspecified Formulation 12/11/2015,,12/15/2013 Pneumococcal conjugate PCV20 04/27/2024 Tdap 07/29/2012 Zoster recombinant 12/28/2019,10/27/2019 Family History Medical History Relation Comments Cancer Father Multiple melanom as Cardiovascular disease Father Diabetes Father No Known Problems Mother Prostate cancer Paternal Grandfather Cancer Paternal Uncle Difused large b cell lymphoma Relation Status Comments Father alive, melanoma depression/anxiety, DM, kidney stones, gallstones, pancreatitis, allergies, Progressive supranuclear palsy Mother Alive ALive, healthy d iverticulosis, OP, dupytrens Paternal Grandfather Paternal Uncle Alive Sister 1 sister, alive, DM, overweight, gallstones, anxiety, depression Social History Tobacco Use Types Packs/Day Years Used Date Smoking Tobacco: Never Smokeless Tobacco: Never Tobacco Cessation:Counseling Given: Not Answered Alcohol Use Standard Drinks/Week Comments Never 0 [...] Orientation Straight 09/08/2018 3: 07 AM EDT Last Filed Vital Signs Vital Sign Reading [...] Mass Index 34.34 01/14/2025 12:08 AM EDT Plan of Treatment Upcoming Encounters Date Type Department Care Team (Late st Contact Info) Description 01/06/2025 Procedure Pass [address] [address] 05/01/2025 9:00 AM EST Office Visit [facility] Medical [address] [address] Manuela Waggoner, DO [address] [address] 06/13/2025 7:00 PM EDT Appointment [facility] [address] [address] Paulino Sam MD [address] [place] [phone] 09/11/2025 9:30 AM EDT Appointment [address] [address] Manuela Waggoner, DO 234 [facility] [address] [place] [address] [phone] ([email or web address] Health Maintenance Due Date Last Done Comments COLOGUARD 02/11/2008 FIT TEST 02/11/2008 FOBT 02/11/2008 SIGMOIDOSCOPY 02/11/2008 VIRTUAL COLONOSCOPY 02/11/2008 DEPRESSION SCREENING 12/23/2023 12/22/2022 INFLUENZA VACCINE (#1) 2024 , 12/13/2022, 12/24/2021, Additional history exists COVID-19 VACCINE ( season) 2024 05/11/2024, 02/09/2023, 01/16/2022, Additional history exists MAMMOGRAM 04/06/2026 04/06/2024, 01/28, 12/23/2021, Additional history exists PAP SMEAR 10/18/2027 10/17/2022, 03/31, 12/02/2012 SCREENING FOR DIABETES 01/15/2028 01/14/2025 COLONOSCOPY 03/22/2029 03/22/2024, 05/28, 06/17/2013, Additional history exists COLORECTAL CANCER SCREENING 03/22/2029 LIPID PANEL 05/21/2029 05/21/2024, 01/28, 11/30/2019, Additional history exists Adult Td,Tdap Booster 12/24/2033 12/25/2023, 013 ZOSTER VACCINES Completed 12/28/2019, 10/27/2019 RSV VACCINE Completed 03/31/2023 PNEUMOCOCCAL VACCINES (50+ years) Completed 04/27/2024 SMOKING STATUS SCREENING (Once After 26 Yrs) Completed 11/09/2024 HEPATITIS A VACCINES Aged Out No long er eligible based on patient's age to complete this topic HIB VACCINES Aged Out No longer eligi ble based on patient's age to complete this topic MENINGOCOCCAL VACCINES (ACWY) Aged Out No longer eligible based on patient's age to complete this topic MENINGOCOCCAL VACCINES (B) Aged Out N o longer eligible based on patient's age to complete this topic Medical Devices Not on file Procedures Procedure Name Priority Date/Time Associated Diagnosis Comments TROPONIN STAT 01/14/2025 1:13 AM EDT XR CHEST PA AND LATERAL 2 VIEWS Routine 01/14/2025 12:32 AM EDT TROPONIN STAT 01/14/2025 12:22 AM EDT BASIC METABOLIC PANEL STAT 01/14/2025 12:22 AM EDT CBC AND DIFFERENTIAL STAT 01/14/2025 12:22 AM EDT ECG 12-LEAD STAT 01/14/2025 12:10 AM EDT LIPID PANEL Routine 05/21/2024 9:05 AM EST Annual physical exam Dyslipidemia Endocrine disorder Class 2 obesity without serious comorbidity with body mass index (BMI) of 35.0 to 35.9 in adult, unspecified obesity type Arthritis Fibromyalgia Post concussive syndrome Duodenal mass Hepatic steatosis Nephrolithiasis Depression with anxiety Osteopenia, unspecified location BI MAMMOGRAM SCREENING WITH TOMOSYNTHESIS WITH CAD (BILATERAL) Routine 04/06/2024 9:17 AM EST Breast screening ENDOSCOPY, COLON 03/22/2024 10:4 2 AM EST PAP TEST Routine 10/17/2022 12:00 AM EDT from Last 3 Months or Most Recently Relevant to Health Maintenance Results * Troponin (01/14/2025 1:13 AM EDT) Only the most recent of2 resultswithin the time period is included. Troponin-T, HS Gen5 <6 0 - 9 ng/L [facility] Blood 01/14/2025 1:13 AM EDT 01/14/2025 1:30 AM EDT us Sandro Tillman DO LAB BLOOD ORDERABLES Final Re sult [facility] [address] [place] [address] * XR CHEST PA AND LATERAL 2 VIEWS (01/14/2025 12:32 AM EDT) Anatomical Region Laterality Modality Chest Computed Radiogr aphy 01/14/2025 2:06 AM EDT Impressions 01/14/2025 2:06 AM EDT No acute abnormality. Narrative 01/14/2025 2:06 AM EDT XR CHEST PA AND LATERAL 2 VIEWS Referring clinician's provided indication for this examination in [facility]: Dyspnea (Shortness of Breath) COMPARISON: XR CHEST PA AND LATERAL 2 VIEWS FINDINGS: Devices/Tubes/Lines: None. Lungs: No focal consolidation or pulmonary edema. Pleura: No pleural effusions or pneumothorax. Heart/Mediastinum: Normal cardiomediastinal silhouette. Bones/Soft Tissues: No significant abnormality. Procedure Note Eri Shi MD - 01/14/2025 XR CHEST PA AND LATERAL 2 VIEWS Referring clinician's provided indication for this examination in [facility]:Dyspnea (Shortness of Breath) COMPARISON: XR CHEST PA AND LATERAL 2 VIEWS FINDINGS: Devices/Tubes/Lines: None. Lungs: No focal consolidation or pulmonary edema. Pleura: No pleural effusions or pneumothorax. Heart/Mediastinum: Normal cardiomediastinal silhouette. Bones/Soft Tissues: No significant abnormality. IMPRESSION: No acute abnormality. us Sandro Tillman DO IMG XR CHEST Final Result * CBC and differential (01/14/2025 12:22 AM EDT) WBC 4.72 4.00 - 11.00 K/uL [facility] RBC 4.98 4.00 - 5.20 M/uL [facility] HGB 14.7 12.0 - 16.0 g/dL [facility] HCT 44.1 36.0 - 46.0 % [facility] PLT 247 150 - 450 K/uL [facility] MCV 88.6 80.0 - 100.0 fL [facility] MCH 29.5 27.0 - 31.0 pg [facility] MCHC 33.3 32.0 - 36.0 g/dL [facility] RDW 12.1 11.5 - 14.5 % [facility] MPV 10.0 8.4 - 12.0 fL [facility] NRBC 0.00 0.00 /100 WBCs [facility] ABSOLUTE NRBC 0.00 0.00 K/uL [facility] DIFF METHOD Auto [facility] NEUTS 51.8 48.0 - 76.0 % [facility] LYMPHS 34.3 18.0 - 41.0 % [facility] MONOS 10.4 4.0 - 11.0 % [facility] EOS 2.5 0.0 - 5.0 % [facility] BASOS 0.8 0.0 - 1.5 % [facility] Granulocytes, immature (%) 0.2 0.0 - 0.9 % [facility] ABSOLUTE NEUTS 2.44 1.92 - 7.60 K/uL [facility] ABSOLUTE LYMPHS 1.62 0.72 - 4.10 K/uL [facility] ABSOLUTE MONOS 0.49 0.16 - 1.10 K/uL [facility] ABSOLUTE EOS 0.12 0.00 - 0.50 K/uL [facility] ABSOLUTE BASOS 0.04 0.00 - 0.15 K/uL [facility] Granulocytes, immature 0.01 0.00 - 0.09 K/uL [facility] Blood 01/14/2025 12:2 2 AM EDT 01/14/2025 12:33 AM EDT us Sandro Tillman DO LAB BLOOD ORDERABLES Final Re sult [facility] [address] [place] [address] * (ABNORMAL) Basic metabolic panel (01/14/2025 12:22 AM EDT) SODIUM 137 133 - 146 mmol/L [facility] CHLORIDE 102 96 - 108 mmol/L [facility] POTASSIUM 4.4 3.3 - 5.1 mmol/L [facility] CO2 27 21 - 35 mmol/L [facility] BUN 20(H) 6 - 19 mg/dL [facility] CREATININE 0.90 0.5 - 1.5 mg/dL [facility] GLUCOSE 103(H) 70 - 99 mg/dL [facility] CALCIUM 9.5 8.4 - 10.3 mg/dL [facility] EGFR 73 >59 mL/min/1.7 3m2 [facility] Comment:Estimated glomerular filtration rate calculated using the CKD-EPI refit equation. ANION GAP 12 10 - 20 mmol/L [facility] Blood 01/14/2025 12:2 2 AM EDT 01/14/2025 12:33 AM EDT us Sandro Tillman DO LAB BLOOD ORDERABLES Final Re sult Performing Organization Address [facility] Co de Phone Number [address] [address] * ECG 12-LEAD (01/14/2025 12:10 AM EDT) Ventricular Rate EKG/MIN 90 BPM [facility] Atrial Rate 90 BPM [facility] MI Interval 134 ms [facility] QRS Duration 126 ms [facility] QT Interval 400 ms [facility] QTC Interval 489 ms [facility] P Olyphant 56 degrees [facility] R Wave Olyphant -19 degrees [facility] T Wave O[place]phant 84 degrees [facility] 01/14/2025 12:1 0 AM EDT 01/15/2025 8:32 AM EDT Narrative [facility] - 01/15/2025 8:32 AM EDT Normal sinus rhythm Left bundle branch block Abnormal ECG No previous ECGs available Confirmed by Francisco Murphy ([id number]) on 01/15/2025 8:32:26 AM us Sandro Tillman DO ECG ORDERABLES Final Result Performing Organization Address City/[facility]/ZIP Co de Phone Number [facility] * (ABNORMAL) Lipid panel (05/21/2024 9:05 AM EST) HDL 45 mg/dL [facility] Comment: Interpretation <40 mg/dL: Low HDL cholesterol (major risk factor for CHD) Greater than or equal to 60 mg/dL: High HDL cholesterol ( negative risk factor for CHD) HDL - cholesterol is affected by a number of factors, e.g. smoking, excerise, hormones, sex and age. CHOLESTEROL 215 0 - 240 mg/dL [facility] TRIGLYCERIDES 154 30 - 160 mg/dL [facility] LDL 139(H) 50 - 129 mg/dL [facility] Comment: LDL levels in terms of risk for coronary heart disease: <100 mg/dL: Optimal 100-129 mg/dL: Near or above optimal 130-159 mg/dL: Borderline high 160-189 mg/dL: High >190 mg/dL: Very High CARDIAC RISK RATIO 4.8(H) 3.3 - 4.4 [facility] Blood 05/21/2024 9:05 AM EST 05/21/2024 10:32 AM EST us Manuela Waggoner DO LAB BLOOD ORDERABLES Final Re sult [address] [address] * BI MAMMOGRAM SCREENING WITH TOMOSYNTHESIS WITH CAD (BILATERAL) (04/06/2024 9:17 AM EST) Anatomical Region Laterality Modality Breast Left, Breast Right, Breast Bilateral Bila teral Mammography 04/06/2024 2:19 PM EST Impressions 04/06/2024 2:48 PM EST No mammographic evidence of malignancy in either breast. Annual screening mammography is recommended. BI-RADS 2 BENIGN The patient will be notified of the results and recommendations. Narrative 04/06/2024 2:48 PM EST BI MAMMOGRAM SCREENING WITH TOMOSYNTHESIS WITH CAD (BILATERAL) Additional patient information: Screening. COMPARISON: Comparison is made with relevant prior imaging. Breast composition: There are scattered areas of fibroglandular density. FINDINGS: There has been no change in the mammographic findings since previous examination. No abnormal masses, suspicious calcifications, or other significant findings are identified mammographically in either breast. Procedure Note Asha Rodriges MD - 04/06/2024 BI MAMMOGRAM SCREENING WITH TOMOSYNTHESIS WITH CAD (BILATERAL) Additional patient information: Screening. COMPARISON: Comparison is made with relevant prior imaging. Breast composition: There are scattered areas of fibroglandular density. FINDINGS: There has been no change in the mammographic findings since previousexamination. No abnormal masses, suspicious calcifications, or other significantfindings are identified mammographically in either breast. IMPRESSION: No mammographic evidence of malignancy in either breast. Annual screening mammography is recommended. BI-RADS 2 BENIGN The patient will be notified of the results and recommendations. us Manuela Waggoner DO IMG MG EXAMS Final Result * ENDOSCOPY, COLON (03/22/2024 10:42 AM EST) Narrative Transcriptions Pieter Juniro MD - 03/22/2024 10:42 AM EST [facility] Patient Name: Maulik Pramod Attending MD:: PIETER JUNIOR MD, , Procedure Date: 03/22/2024 10:42AM Date of : 1965 Age: 59 Admit Type: Outpatient Gender: Female Room: [place] [address] Referring MD: Manuela Waggoner MD Exam Type: Colonoscopy Indications: High risk colon cancer surveillance: Personalhistory of colonic polyps Medications: Monitored Anesthesia Care Procedure: Informed consent was obtained from the patientafter discussion of the indications, limitations, alternatives, benefits, and risks of the procedure. Risks specifically discussed include but are not limited to medication reactions, missed lesions, bleeding, perforation, or the need for emergent surgery. Throughout the procedure, the patient's blood pressure, pulse, end-tidal CO2, and oxygensaturations were monitored continuously. The Olympus pediatric variable colonoscopePCF-[id number] #3 was introduced through the anus and advanced tothe cecum, identified by appendiceal orifice andileocecal valve. The colonoscopy was performed without difficulty. The patient tolerated the procedurewell. The quality of the bowel preparation was excellent. The quality of the bowel preparation was evaluated using the BBPS (K[place]ford Bowel Preparation Scale)with scores of: Right Colon = 3, Transverse Colon = 3and Left Colon = 3 (entire mucosa seen well with no residual staining, small fragments of stool oropaque liquid). The total BBPS score equals 9. Anatomical landmarks were photographed. Complications: No immediate complications. Estimated blood loss:None. Findings: The perianal and digital rectal examinations were normal. Internal hemorrhoids were found duringretroflexion. The hemorrhoids were mild. The exam was otherwise normal throughout theexamined colon. Impression: - Internal hemorrhoids. - No specimens collected. Recommendation: - Discharge patient to home. - Repeat colonoscopy in 7 years for surveillance. PIETER JUNIOR MD, 03/22/2024 11:09:38 AM This report has been signed electronically. Number of Addenda: 0 Note Initiated On: 03/22/2024 10:42 AM Procedure Code(s): --- Professional --- 53544, Colonoscopy, flexible; diagnostic, including collection of specimen(s) by brushing or washing, when performed (separateprocedure) --- Technical --- 46261, Colonoscopy, flexible; diagnostic, including collection of specimen(s) by brushing or washing, when performed (separateprocedure) Diagnosis Code(s): --- Professional --- Z86.010, Personal history of colonic polyps K64.8, Other hemorrhoids --- Technical --- Z86.010, Personal history of colonic polyps K64.8, Other hemorrhoids CPT copyright 2021 [employer]. All rights reserved. The codes documented in this report are preliminary and upon record changer assembler reviewmay be revised to meet current compliance requirements. Procedure Date: 03/22/2024 10:42:[address] [place] [address] Manuela Waggoner DO GI PROCEDURE ORDERABLES Final Result * Pap Test (10/17/2022 12:00 AM EDT) 10/17/2022 10/20/2022 8:2 7 AM EDT Narrative SEE NARRATIVE - 10/23/2022 8:56 AM EDT [address] [address] Fondant Cooker: Smita Cotton MD DRUM STRAIGHTENER Cytology Report FINAL DIAGNOSIS A. PAP SMEAR (SUREPATH) CE: SPECIMEN ADEQUACY: Satisfactory for evaluation; transformation zone present. INTERPRETATION: NEGATIVE FOR INTRAEPITHELIAL LESION OR MALIGNANCY. Electronically Signed Out By: DULCE Goodman(ASCP) The Pap test is a screening test primarily for squamous cancers and precursors and has associated false-negative and false-positive results. New technologies such as liquid-based preparations may decrease but will not eliminate all false-negative results. Regular sampling and follow-up of unexplained clinical signs and symptoms are recommended to minimize false negative results. PROCEDURES/ADDENDA HPV Testing (Requested) Ordered Date: 10/20/2022 A. PAP SMEAR (SUREPATH) CE: Human Papilloma Virus Test NEGATIVE for high-risk Human Papilloma Virus types 16, 18, 45 and the Other high risk probe set (Includes 31, 33, 35, 39, 51, 52, 56, 58, 59, 66, 68) Note: Testing performed by [employer] Onclarity HR-HPV analysis. Clinical correlation is advised. This HPV test was performed at [facility], [address] [place] [address]. This test has been FDA approved for SurePath cervical cytology specimens. The accuracy and precision of this test for all other specimen sources has been verified in the Cytopathology Laboratory of the [facility] and has not been cleared or approved by the U.S. Food and Drug Administration. Clinical correlation is advised. CLINICAL HISTORY Date of Last Menstrual Period: Not Provided Menstrual History: Post Menopausal Other Clinical Conditions: Screening Pap SPECIMEN SOURCE A: PAP SMEAR (SUREPATH) CE Patient Name: MAULIK TILLMAN : 1965 (Age: 57) Sex: F Institution: [facility] Location: [facility] Date of Collection: 10/17/2022 Date of Reported: 10/23/2022 08:56 Results to: Amy Escalera MD Amy Escalera MD CYTOLOGY ORDERABLES Final Result SEE NARRATIVE from Last 3 Months or Most Recently Relevant to Health Maintenance Insurance [place] [address] [place] [address] [facility] [address] [address] [place], [place] [address] [place] [address] [place] [place] [address] Advance Directives For more information, please contact: [phone] (9AM - 5PM [facility], Thursday-Thursday) Documents on File Type Date Recorded Patient Research Affiliate Expl anation Healthcare Proxy 09/10/2018 11:26 AM * Full Code (Confirmed) (Latest Code Status on File) Date Activated Date Inactivated Comments 09/08/2018 6:59 AM 09/09/2018 4:16 PM Question Answer Comments Code Status Confirmed With: Patient Care Teams Development System Efficiency Manager Relationship Specialty Start Date End Date Manuela Waggoner DO [address] [place] [address] 7 [place] [address] PCP - General Family Medicine 11/28/19 Brenden Carvajal DO [address] [place] [address], [facility] 7 [place] [address] [email or web address] Historical LMR Provider 01/12/17 Manuela Waggoner DO [address] [place] [address] 7 [place] [address] Historical LMR Provider 01/12/17 Crow Man MD [email or web address] Historical LMR Provider 01/12/17 Additional Source Comments The information contained in this document represents components of the legal health record. It is not the complete legal health record.[facility]
--- OUTSIDE RECORDS SUMMARY | 2025-01-19 18:36 | XMS_ITS | Encounter Summary ---
Author Organization [facility] Address [address] [facility] [address] [place] [address] Phone Care Team Providers Care Undercover Operator Name Role Phone Maral Quinn HAND STRIPPER Unavailable [phone] Brenden Carvajal DO Unavailable Darby Saba MD Unavailable [phone] Manuela Polk HAND STRIPPER Unavailable Unavailable DacManuela myles DO Unavailable [phone] Crow Man MD Unavailable [email or web address] Richard Pacheco MD Unavailable Christofer Keen MD Unavailable [phone] Rich Pleitez MD Unavailable Manuela Waggoner DO Primary Care Provider Manuela Waggoner DO Primary Care Provider Krystal Da Silva [facility] Unavailable Encounter Details Date Type Department Care Team (Latest Contact Info) Description 05/08/2017 Transcribe Orders [address] [place] [address] Lala Campos MD, PhD [email or web address] Kidney stone (Primary Dx); Hydronephrosis, unspecified hydronephrosis type; Lamberto hematuria; Low back pain, unspecified back pain laterality, unspecified chronicity, with sciatica presence unspecified; Painful bladder spasm Social History Tobacco Use Types Packs/Day Years Used Date Smoking Tobacco: Never Assessed Comments Unknown Sex and Gender Information Value Date Recorded Sex Assigned at Female 09/08/2018 3:07 AM EDT Legal Sex Female 9:44 PM EDT Gender Identity Female 09/08/2018 3:07 AM EDT Sexual Orientation Straight 09/08/2018 3: 07 AM EDT documented as of this encounter Plan of Treatment Upcoming Encounters Date Type Department Care Team (Late st Contact Info) Description 01/06/2025 Procedure Pass [address] [address] 05/01/2025 9:00 AM EST Office Visit [facility] [address] [address] Manuela Waggoner, DO [address] [place] [address] 06/13/2025 7:00 PM EDT Appointment [address] [address] Paulino Sam MD [address] [place] [address] 09/11/2025 9:30 AM EDT Appointment [address] [address] Manuela Waggoner, DO [address] [address] documented as of this encounter Results * Sodium, random urine (05/08/2017 9:08 AM EST) URINE SODIUM 151 mmol/L [facility] Urine (Urine) 05/08/2017 9:0 8 AM EST 05/08/2017 9:13 AM EST us Lala Campos MD, PhD URINE ORDERABLES Final Result Performing Organization Address [facility] de Phone Number [address] [address] * Creatinine, random urine (05/08/2017 9:08 AM EST) URINE CREATININE 189 mg/dL [facility] Urine (Urine) 05/08/2017 9:0 8 AM EST 05/08/2017 9:13 AM EST us Lala Campos MD, PhD URINE ORDERABLES Final Result Performing Organization Address [facility] de Phone Number [address] [address] * Calcium, Random Urine (05/08/2017 9:08 AM EST) URINE CALCIUM 18.7 mg/dL [facility] Urine (Urine) 05/08/2017 9:0 8 AM EST 05/08/2017 9:13 AM EST us Lala Campos MD, PhD URINE ORDERABLES Final Result Performing Organization Address [facility] de Phone Number [address] [address] * Urinalysis w/reflex Urine Culture (05/08/2017 9:08 AM EST) COLOR Yellow Yellow [facility] CLARITY Clear [facility] GLUCOSE Negative Negative [facility] BILI Negative Negative [facility] KETONES Negative Negative [facility] SPECIFIC GRAVITY 1.020 1.005 - 1.030 [facility] BLOOD Negative Negative [facility] PH 7.0 5.0 - 8.0 [facility] Protein-UA Negative Negative [facility] NITRITE Negative Negative [facility] Leukocyte esterase, ur Negative Negative [facility] Urine (Urine) 05/08/2017 9:0 8 AM EST 05/08/2017 9:13 AM EST us Lala Campos MD, PhD URINE ORDERABLES Final Result [facility] [address] [place], [place] [id number] * (ABNORMAL) CBC and differential (05/08/2017 8:45 AM EST) WBC 3.16(L) 3.40 - 11.20 K/uL [facility] RBC 4.58 3.80 - 4.80 M/uL [facility] HGB 13.6 12.0 - 15.0 g/dL [facility] HCT 40.9 36.0 - 46.0 % [facility] PLT 181 130 - 400 K/uL [facility] MCV 89.3 79.0 - 98.0 fL [facility] MCH 29.7 27.0 - 34.8 pg [facility] MCHC 33.3 31.5 - 36.0 g/dL [facility] RDW 12.4 10.8 - 14.6 % [facility] MPV 10.7 9.4 - 12.4 fl [facility] NRBC 0.00 /100 WBCs [facility] ABSOLUTE NRBC 0.00 K/uL [facility] DIFF METHOD Auto [facility] NEUTS 43.7(L) 45.30 - 77.70 % [facility] LYMPHS 41.5(H) 12.30 - 39.70 % [facility] MONOS 10.1 4.10 - 12.80 % [facility] EOS 4.1 0 - 7.2 % [facility] BASOS 0.6 0 - 2.80 % [facility] Granulocytes, immature (%) 0.0 0.0 - 0.9 % [facility] ABSOLUTE NEUTS 1.38(L) 1.40 - 7.70 K/uL [facility] ABSOLUTE LYMPHS 1.31 0.60 - 3.20 K/uL [facility] ABSOLUTE MONOS 0.32 0.11 - 0.59 K/uL [facility] ABSOLUTE EOS 0.13 0.01 - 0.50 K/uL [facility] ABSOLUTE BASOS 0.02 0.00 - 0.08 K/uL [facility] Granulocytes, immature 0.00 0.00 - 0.05 K/uL [facility] Blood 05/08/2017 8:45 AM EST 05/08/2017 8:48 AM EST us Lala Campos MD, PhD LAB BLOOD ORDERABLES Final Re sult Performing Organization Address [facility] Co de Phone Number [address] [address] * (ABNORMAL) Parathyroid hormone (PTH) (05/08/2017 8:45 AM EST) PARATHYROID HORMONE 68(H) 15 - 65 pg/mL [facility] Blood 05/08/2017 8:45 AM EST 05/08/2017 8:48 AM EST us Lala Campos MD, PhD LAB BLOOD ORDERABLES Final Re sult Performing Organization Address [facility] Co de Phone Number [address] [address] * (ABNORMAL) 25-OH vitamin D (05/08/2017 8:45 AM EST) 25 OH VIT D (TOTAL) 28(L) 30 - 1,000 ng/mL [facility] Blood 05/08/2017 8:45 AM EST 05/08/2017 8:48 AM EST us Lala Campos MD, PhD LAB BLOOD ORDERABLES Final Re sult Performing Organization Address [facility] Co de Phone Number [address] [address] * Renal panel (05/08/2017 8:45 AM EST) SODIUM 141 133 - 146 mmol/L [facility] POTASSIUM 4.6 3.3 - 5.1 mmol/L [facility] CHLORIDE 103 96 - 108 mmol/L [facility] CO2 28 21 - 35 mmol/L [facility] GLUCOSE 96 70 - 99 mg/dL [facility] BUN 14 6 - 19 mg/dL [facility] CREATININE 0.70 0.5 - 1.5 mg/dL [facility] CALCIUM 9.1 8.4 - 10.3 mg/dL [facility] PHOSPHORUS 3.3 2.7 - 4.5 mg/dL [facility] ALBUMIN 4.0 3.9 - 4.8 g/dL [facility] EGFR >60 >60 mL/min/1.7 3m2 [facility] Comment:Abnormal if <60. If patient is -[place], multiply the result by 1.21. ANION GAP 15 10 - 20 mmol/L [facility] Blood 05/08/2017 8:45 AM EST 05/08/2017 8:48 AM EST us Lala Campos MD, PhD LAB BLOOD ORDERABLES Final Re sult [facility] Organization Address City/State/ZIP Co de Phone Number [facility] [address] [place] [address] documented in this encounter Visit Diagnoses Diagnosis Kidney stone- Primary Calculus of kidney Hydronephrosis, unspecified hydronephrosis type Lamberto hematuria Low back pain, unspecified back pain laterality, unspecified chronicity, with sciatica presence unspecified Painful bladder spasm Other symptoms involving urinary system documented in this encounter Additional Health Concerns Infection Onset Date Last Indicated Resolved Time 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 09/22/2018 05/14/2022 1:41 AM EST documented as of this encounter Care Teams Undercover Operator Relationship Specialty Start Date End Date Manuela Waggoner DO [address] [facility] 7 [place] [address] PCP - General Family Medicine 02/04/17 11/27/19 Manuela Waggoner DO [address] [facility] 7 [place] [address] PCP - General Family Medicine 11/28/19 Maral Quinn NP [address] [place] [address] Historical LMR Provider 01/12/17 Brenden Carvajal DO [address] [place] [address] 7 [place] [address] Historical LMR Provider 01/12/17 Darby Saba MD [address] [place] [address] 3 [place] [address] Historical LMR Provider 01/12/17 2 Manuela Polk HAND STRIPPER [address] [place] [address] Historical LMR Provider 01/12/1704/06 Manuela Waggoner DO [address] [place] [address] 7 [place] [address] Historical LMR Provider 01/12/17 Crow Man MD [email or web address] Historical LMR Provider 01/12/17 Richard Pacheco MD [address] [place] [address], [address] [place] [address] Historical LMR Provider 01/12/17 04/06/21 Christofer Keen MD [address] [facility] [address] [place] [address] Historical LMR Provider 01/12/17 04/06/21 Rich Pleitez MD [address] [place] [address] 7 [place] [id number] Historical LMR Provider 01/12/17 Krystal Da Silva, [address] [address] [email or web address] PHCM Production Expediter 12/10/22 02/28/24 documented as of this encounter Additional Source Comments The information contained in this document represents components of the legal health record. It is not the complete legal health record.[facility]
--- OUTSIDE RECORDS SUMMARY | 2025-01-19 18:36 | XMS_ITS | Encounter Summary ---
Author Organization [facility] Address [address] [facility] [address] [place] [address] Phone Care Team Providers Care Trauma Doctor Name Role Phone Brenden Carvajal Kathrine DO Unavailable Manuela Waggoner DO Unavailable Crow Man MD Unavailable [email or web address] Manuela Waggoner DO Primary Care Provider [phone] Encounter Details Date Type Department Care Team (Latest Contact Info) Description 01/18/2025 Transcribe Orders Virtual Department [address] [place] [address] Paulino Sam MD [address] [place] [address] [email or web address] Hyperparathyroidism, unspecified (Primary Dx) Social History Tobacco Use Types [...] st Contact Info) Description 01/06/2025 Procedure Pass [address] [address] 05/01/2025 9:00 AM EST Office Visit [facility] [address] [address] Manuela Waggoner DO [address] [facility], [address] [place] [address] 06/13/2025 7:00 PM EDT Appointment [facility] Bone Density [address] [address] Paulino Sam MD [address] [place] [address] 09/11/2025 9:30 AM EDT Appointment [address] [address] Manuela Waggoner, DO [address] [address] Scheduled Orders Name Type Priority Associated Diagnoses Orde r Schedule DXA Monitoring Imaging Routine Hyperparathyroidism, unspecified Expected: 02/17/2025, Expires: 01/18/2027 documented as of this encounter Visit Diagnoses Diagnosis Hyperparathyroidism, unspecified- Primary documented in this encounter Additional Health Concerns Assessment Noted Time PHQ-2 Depression Total Score: 0 12/23/19 23 1:04 PM EDT documented as of this encounter Care Teams Trauma Doctor Relationship Specialty Start Date End Date Manuela Waggoner DO [address] [place] [address], [facility] 7 [place] [address] PCP - General Family Medicine 11/28/19 Brenden Carvajal DO [address] [place] [address], [facility] 7 [place] [address] [email or web address] Historical LMR Provider 01/12/17 Manuela Waggoner DO [address] [place] [address] 7 [place] [address] [email or web address] Historical LMR Provider 01/12/17 Crow Man MD [email or web address] Historical LMR Provider 01/12/17 documented as of this encounter Additional Source Comments The information contained in this document represents components of the legal health record. It is not the complete legal health record.[facility]
--- OUTSIDE RECORDS SUMMARY | 2025-01-19 18:36 | XMS_ITS | Clinical Summary ---
Author Organization [facility] Address [address] [address] Phone Care Team Providers Care Party Demonstrator Name Role Phone Manuela Reyes DO Primary Care Provider [phone] Allergies Active Allergy Reactions Criticality Noted Date [...] Overview (12/09/2022): 2022 Postconcussion syndrome 05/06/2021 12/10/19 Overview (12/09/2022): Dr. Tolentino Also LEATHER SORTER Kadi Mendoza Following Neuropsych eval 12/2021 Psychiatrist: Georges Wasserman Last Assessment & Plan: Overall, she continues to improve (with mild [...] has finished the kinesiology class project through [employer] which was also helpful. She has been [...] of this 28-minute visit was spent in [id number] conversation with the patient. Granados's neuroma of right foot 02/04/2017 0 12/09/2022 Endometriosis 02/04/2017 12/09/2022 Dyslipidemia 02/04/2017 12/09/2022 Cyst of liver 02/04/2017 12/09/2022 Overview (12/09/2022): Incidental finding on CT 03/2018 Osteoarthritis of joint of bilateral hands 02/0412/09/2022 Overview (12/09/2022): Last Assessment & Plan: Generalized warmth and enlarged claims coordinator on tools and utensils were recommended. Primary [...] 06/02/2018 12:00 PM EST Plan of Treatment Health Maintenance Due Date Last Done Comments Breast Cancer Screening 1965 Pneumococcal Vaccine: 50+ Years (1 of 2 - PCV) 1982 Colorectal Cancer Screening: Annual FOBT 02/11/2012 Colorectal Cancer Screening: Colonoscopy 02/11/2012 Colorectal Cancer Screening: Sigmoidoscopy 02/11/2012 Influenza Vaccine (#1) 2024 3, 12/24/2021, 12/27/2020, Additional history exists Hepatitis B Vaccine Aged Out No longe r eligible based on patient's age to complete this topic [place] [address] [facility] Care Teams Party Demonstrator Relationship Specialty Start Date End Date Manuela Reyes DO [address] [place] [address] 7 [place], [place] [id number] PCP - General Family Medicine 12/10/22
--- OUTSIDE RECORDS SUMMARY | 2025-01-19 18:36 | XMS_ITS | Encounter Summary ---
Author Organization [facility] Address [address] [facility] [address] [place] [address] Phone Care Team Providers Care Shape Brick Molder Name Role Phone Maral Quinn [employer] Unavailable [phone] Brenden Carvajal DO Unavailable Darby Saba MD Unavailable [phone] Manuela Polk [employer] Unavailable Unavailable Manuela Waggoner DO Unavailable Crow Man MD Unavailable [email or web address] Richard Pacheco MD Unavailable [phone] Christofer Keen MD Unavailable [phone] Rich Pleitez MD Unavailable Manuela Waggoner DO Primary Care Provider Manuela Waggoner DO Primary Care Provider [phone] [facility] Unavailable [phone] Encounter Details Date Type Department Care Team (Late st Contact Info) Description 09/14/2017 Ancillary Orders [facility] [address] [place], [place] [phone] Manuela Waggoner DO 234 [facility], [address] [place], [place] [id number] [email or web address] Breast screening Social History Tobacco Use Types Packs/Day Years [...] st Contact Info) Description 01/06/2025 Procedure Pass [address] [address] 05/01/2025 9:00 AM EST Office Visit [facility] Medical [facility] Medicine [address] [place] [address] Manuela Waggoner, DO [address] [place] [address] 7 [place] [address] 06/13/2025 7:00 PM EDT Appointment [facility] Bone Density [address] [address] Paulino Sam MD [address] [place] [address] 09/11/2025 9:30 AM EDT Appointment [address] [address] Manuela Waggoner, DO 234 [facility], [facility] 7 [place] [address] documented as of this encounter Results * BI MAMMOGRAM SCREENING WITH TOMOSYNTHESIS WITH CAD (BILATERAL) (03/12/2018 8:40 AM EST) Anatomical Region Laterality Modality Breast Left, Breast Right, Breast Bilateral Bila teral Mammography 03/12/2018 10:4 6 AM EST Impressions 03/12/2018 10:53 AM EST No mammographic signs of malignancy. Annual screening is recommended. BI-RADS CATEGORY: 2 - Benign finding. DENSITY: There are scattered fibroglandular densities. POS - CDHMAMA Narrative 03/12/2018 10:53 AM EST Bilateral mammography is performed in conjunction with computed aided detection. 3-D tomography along with 2-D C view imaging was also performed. Comparison made to previous dated as far back as 12/16/2011 and as recent as 01/14/2017. No suspicious masses, areas of architectural distortion or suspicious microcalcifications. A few stable scattered bilateral microcalcifications. Procedure Note Daniel Gill MD - 03/12/2018 Bilateral mammography is performed in conjunction with computed aideddetection. 3-D tomography along with 2-D C view imaging was alsoperformed. Comparison made to previous dated as far back as 12/16/2011 andas recent as 01/14/2017. No suspicious masses, areas of architectural distortion or suspiciousmicrocalcifications. A few stable scattered bilateralmicrocalcifications. IMPRESSION: No mammographic signs of malignancy. Annual screening is recommended. BI-RADS CATEGORY: 2 - Benign finding. DENSITY: There are scattered fibroglandular densities. POS - CDHMAMA Manuela Waggoner DO IMG MG EXAMS Final Result documented in this encounter Visit Diagnoses Diagnosis Breast screening Breast screening, unspecified Breast screening Breast screening, unspecified documented in this encounter Additional Health Concerns Infection Onset Date Last Indicated Resolved Time 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 09/22/2018 05/14/2022 1:41 AM EST documented as of this encounter Care Teams Shape Brick Molder Relationship Specialty Start Date End Date Manuela Waggoner DO [address] [place] [address] 7 [place] [address] [email or web address] PCP - General Family Medicine 02/04/17 11/27/19 Manuela Waggoner DO [address] [place] [address] 7 [place] [address] PCP - General Family Medicine 11/28/19 Maral Quinn [employer] 1 [place] [address] Historical LMR Provider 01/12/17 Brenden Carvajal DO [address] [place] [address] 7 [place] [address] [email or web address] Historical LMR Provider 01/12/17 Darby Saba MD [address] [place] [address] 3 [place] [address] Historical LMR Provider 01/12/17 2 Manuela Polk [employer] 164 [place] [address] Historical LMR Provider 01/12/1704/06 Manuela Waggoner DO [address] [place] [address] 7 [place] [address] Historical LMR Provider 01/12/17 Crow Man MD [email or web address] Historical LMR Provider 01/12/17 Richard Pacheco MD [address] [place] [address], 2nd [place] [address] Historical LMR Provider 01/12/17 04/06/21 Christofer Keen MD [address] [place] [address], [address] [place] [address] Historical LMR Provider 01/12/17 04/06/21 Rich Pleitez MD [address] [place] [phone] Historical LMR Provider 01/12/17 Krystal Da Silva, [address] [address] PHCM Talent Management Specialist 12/10/22 02/28/24 documented as of this encounter Additional Source Comments The information contained in this document represents components of the legal health record. It is not the complete legal health record.[facility]
--- OUTSIDE RECORDS SUMMARY | 2025-01-19 18:37 | XMS_ITS | Encounter Summary ---
Author Organization [facility] Address 399 [facility] [address] [place] [address] Phone Care Team Providers Care Application Systems Engineer Name Role Phone Maral Quinn [employer]P MARKETING Unavailable Brenden Carvajal DO Unavailable Darby Saba MD Unavailable [phone] Manuela Polk SV[employer] MARKETING Unavailable Unavailable Manuela Waggoner DO Unavailable [phone] Crow Man MD Unavailable [email or web address] Richard Pacheco MD Unavailable Christofer Keen MD Unavailable Rich Pleitez MD Unavailable Manuela Waggoner DO Primary Care Provider Manuela Waggoner DO Primary Care Provider Krystal Da Silva [facility] Unavailable Encounter Details Date Type Department Care Team (Late st Contact Info) Description 09/22/2018 Documentation [facility] Infectious Disease Virtual Department [address] [place], [place] [phone] Pcp, Not Required 55 [place] [address] Social History Tobacco Use Types Packs/Day Years [...] st Contact Info) Description 01/06/2025 Procedure Pass [address] [address] 05/01/2025 9:00 AM EST Office Visit [address] [address] Manuela Waggoner DO [address] [address] 06/13/2025 7:00 PM EDT Appointment [address] [address] Paulino Sam MD [address] [place] [address] 09/11/2025 9:30 AM EDT Appointment [address] [address] Manuela Waggoner DO [address] [address] documented as of this encounter Visit Diagnoses Not on filedocumented in this encounter Additional Health Concerns Infection Onset Date Last Indicated Resolved Time 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 09/22/2018 05/14/2022 1:41 AM EST Assessment Noted Time PHQ-2 Depression Total Score: 0 12/25/19 18 10:40 AM EDT documented as of this encounter Care Teams Application Systems Engineer Relationship Specialty Start Date End Date Manuela Waggoner DO [address] [place] [address] 7 [place] [address] [email or web address] PCP - General Family Medicine 02/04/17 11/27/19 Manuela Waggoner DO [address] [place] [address] [address] [place] [address] [email or web address] PCP - General Family Medicine 11/28/19 Maral Quinn SVP MARKETING [address] [place] [address] Historical LMR Provider 01/12/17 Brenden Carvajal DO [address] [place] [address] 7 [place] [address] [email or web address] Historical LMR Provider 01/12/17 Darby Saba MD [address] [place] [address] 3 [place] [address] Historical LMR Provider 01/12/17 2 Manuela Polk SVP MARKETING [address] [place] [address] Historical LMR Provider 01/12/1704/06 Manuela Waggoner DO [address] [place] [address] 7 [place] [address] [email or web address] Historical LMR Provider 01/12/17 Crow Man MD [email or web address] Historical LMR Provider 01/12/17 Richard Pacheco MD [address] [place] [address], 2nd [place] [address] Historical LMR Provider 01/12/17 04/06/21 Christofer Keen MD 22 [facility], [address] [place] [address] [email or web address] Historical LMR Provider 01/12/17 04/06/21 Rich Pleitez MD [address] [place] [address] 7 [place] [address] Historical LMR Provider 01/12/17 Krystal Da Silva, [facility] 10 [place] [address] [email or web address] PHCM Semiconductor Assembler 12/10/22 02/28/24 documented as of this encounter Additional Source Comments The information contained in this document represents components of the legal health record. It is not the complete legal health record.[facility]
--- OUTSIDE RECORDS SUMMARY | 2025-01-19 18:37 | XMS_ITS | Encounter Summary ---
Author Organization [facility] Address [address] [facility] [address] [place] [address] Phone Care Team Providers Care Customer Servicer Name Role Phone Maral Quinn STAFF COUNSELOR Unavailable [phone] Brenden Carvajal DO Unavailable Darby Saba MD Unavailable [phone] Manuela Polk STAFF COUNSELOR Unavailable Unavailable Manuela Waggoner DO Unavailable [phone] Crow Man MD Unavailable [email or web address] Richard Pacheco MD Unavailable [phone] Christofer Keen MD Unavailable Rich Pleitez MD Unavailable [phone] Manuela Waggoner DO Primary Care Provider [phone] Manuela Waggoner DO Primary Care Provider [phone] Krystal Da Silva [facility] Unavailable Encounter Details Date Type Department Care Team (Late st Contact Info) Description 12/13/2018 Ancillary Orders [facility] 234 [place], [place] [phone] Manuela Waggoner DO 234 [facility], [address] [place], [place] [phone] [email or web address] Social History Tobacco Use Types Packs/Day Years [...] st Contact Info) Description 01/06/2025 Procedure Pass [address] [address] 05/01/2025 9:00 AM EST Office Visit [facility] Medical [address] [address] Manuela Waggoner, DO [address] [place] [address] 7 [place] [address] [email or web address] 06/13/2025 7:00 PM EDT Appointment [address] [address] Paulino Sam MD [address] [place] [address] 09/11/2025 9:30 AM EDT Appointment [address] [address] Manuela Waggoner, DO 234 [facility], [facility] 7 [place] [address] documented as of this encounter Visit Diagnoses Not on filedocumented in this encounter Additional Health Concerns Infection Onset Date Last Indicated Resolved Time 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 09/22/2018 05/14/2022 1:41 AM EST Assessment Noted Time PHQ-2 Depression Total Score: 0 12/25/19 18 10:40 AM EDT documented as of this encounter Care Teams Customer Servicer Relationship Specialty Start Date End Date Manuela Waggoner DO 234 [facility] 7 [place] [address] [email or web address] PCP - General Family Medicine 02/04/17 11/27/19 Manuela Waggoner DO [address] [place] [address] 7 [place] [address] [email or web address] PCP - General Family Medicine 11/28/19 Maral Quinn STAFF COUNSELOR [address] [place] [address] Historical LMR Provider 01/12/17 Brenden Carvajal DO [address] [place] [address] 7 [place] [address] [email or web address] Historical LMR Provider 01/12/17 Darby Saba MD [address] [place] [address] 3 [place] [address] Historical LMR Provider 01/12/17 2 Manuela Polk STAFF COUNSELOR [address] [place] [address] Historical LMR Provider 01/12/1704/06 Manuela Waggoner DO [address] [place] [address] 7 [place] [address] [email or web address] Historical LMR Provider 01/12/17 Crow Man MD [email or web address] Historical LMR Provider 01/12/17 Richard Pacheco MD [address] [place] [address] [place] [address] Historical LMR Provider 01/12/17 04/06/21 Christofer Keen MD 22 [facility], [address] [place] [address] Historical LMR Provider 01/12/17 04/06/21 Rich Pleitez MD [address] [place] [address] Historical LMR Provider 01/12/17 Krystal Da Silva, [address] [address] PHCM Order Processing Clerk 12/10/22 02/28/24 documented as of this encounter Additional Source Comments The information contained in this document represents components of the legal health record. It is not the complete legal health record.[facility]
--- OUTSIDE RECORDS SUMMARY | 2025-01-19 18:37 | XMS_ITS | Encounter Summary ---
Author Organization [facility] Address [address] [facility] [address] [place] [address] Phone Care Team Providers Care Machinist Instructor Name Role Phone Maral Quinn ART PROFESSOR Unavailable [phone] Brenden Carvajal DO Unavailable Darby Saba MD Unavailable [phone] Manuela Polk ART PROFESSOR Unavailable Unavailable Manuela Waggoner DO Unavailable [phone] Crow Man MD Unavailable [email or web address] Richard Pacheco MD Unavailable Christofer Keen MD Unavailable [phone] Rich Pleitez MD Unavailable [phone] Manuela Waggoner DO Primary Care Provider Manuela Waggoner DO Primary Care Provider Krystal Da Silva [facility] Unavailable [phone] Encounter Details Date Type Department Care Team (Late st Contact Info) Description 12/13/2018 Ancillary Orders Virtual Department 30 [place] [address] Manuela Waggoner DO 234 [facility], [address] [place], [place] [phone] Breast screening Social History Tobacco Use Types [...] st Contact Info) Description 01/06/2025 Procedure Pass [address] [address] 05/01/2025 9:00 AM EST Office Visit [facility] Medical [address] [address] Manuela Waggoner, DO [address] [place] [address], [facility] 7 [place] [address] 06/13/2025 7:00 PM EDT Appointment [facility] Density [address] [address] Paulino Sam MD [address] [place] [address] 09/11/2025 9:30 AM EDT Appointment [address] [address] Manuela Waggoner, DO 234 [facility], [address] [place] [address] documented as of this encounter Results * BI MAMMOGRAM SCREENING WITH TOMOSYNTHESIS WITH CAD (BILATERAL) (03/16/2019 8:58 AM EST) Anatomical Region Laterality Modality Breast Left, Breast Right, Breast Bilateral Bila teral Mammography 03/16/2019 2:03 PM EST Impressions 03/16/2019 2:11 PM EST No mammographic signs of malignancy. Annual screening is recommended. BI-RADS CATEGORY: 1 - Negative. DENSITY: There are scattered fibroglandular densities. POS - CDHMAMA Narrative 03/16/2019 2:11 PM EST Bilateral mammography is performed in conjunction with computed aided detection. 3-D tomography along with 2-D C view imaging was also performed. Comparison made to previous dated as far back as 07/30/2007 and as recent as 03/12/2018. No suspicious masses, areas of architectural distortion or suspicious microcalcifications. Procedure Note Daniel Gill MD - 03/16/2019 Bilateral mammography is performed in conjunction with computed aideddetection. 3-D tomography along with 2-D C view imaging was alsoperformed. Comparison made to previous dated as far back as 07/30/2007 andas recent as 03/12/2018. No suspicious masses, areas of architectural distortion or suspiciousmicrocalcifications. IMPRESSION: No mammographic signs of malignancy. Annual screening is recommended. BI-RADS CATEGORY: 1 - Negative. DENSITY: There are scattered fibroglandular densities. POS [...] documented as of this encounter Care Teams Machinist Instructor Relationship Specialty Start Date End Date Manuela Waggoner DO [address] [place] [address], [facility] 7 [place] [address] PCP - General Family Medicine 02/04/17 11/27/19 Manuela Waggoner DO [address] [place] [address] 7 [place] [address] PCP - General Family Medicine 11/28/19 Maral Quinn NP 1 [place] [address] Historical LMR Provider 01/12/17 Brenden Carvajal DO [address] [place] [address] 7 [place] [address] [email or web address] Historical LMR Provider 01/12/17 Darby Saba MD [address] [place] [address] 3 [place] [address] Historical LMR Provider 01/12/17 2 Manuela Polk NP 164 [place] [address] Historical LMR Provider 01/12/1704/06 Manuela Waggoner DO [address] [place] [address] 7 [place] [address] Historical LMR Provider 01/12/17 Crow Man MD [email or web address] Historical LMR Provider 01/12/17 Richard Pacheco MD 22 [facility], 2nd [place] [address] [email or web address] Historical LMR Provider 01/12/17 04/06/21 Christofer Keen MD 22 [facility], [address] [place] [address] [email or web address] Historical LMR Provider 01/12/17 04/06/21 Rich Pleitez MD [address] [place] [id number] Historical LMR Provider 01/12/17 Krystal Da Silva, [address] [address] [email or web address] PHCM Blood Collector 12/10/22 02/28/24 documented as of this encounter Additional Source Comments The information contained in this document represents components of the legal health record. It is not the complete legal health record.[facility]
--- OUTSIDE RECORDS SUMMARY | 2025-01-19 18:37 | XMS_ITS | Encounter Summary ---
Author Organization [facility] Address [address] [facility] [address] [place] [address] Phone Care Team Providers Care Plant Protection Guard Name Role Phone Maarl Quinn PROFESSIONAL MODEL Unavailable Brenden Carvajal DO Unavailable Darby Saba MD Unavailable Manuela Polk PROFESSIONAL MODEL Unavailable Unavailable DacManuela myles DO Unavailable Crow Man MD Unavailable [email or web address] Richard Pacheco MD Unavailable Christofer Keen MD Unavailable [phone] Rich Pleitez MD Unavailable Manuela Waggoner DO Primary Care Provider Manuela Waggoner DO Primary Care Provider Krystal Da Silva [facility] Unavailable Encounter Details Date Type Department Care Team (Latest Contact Info) Description 07/08/2017 Transcribe Orders [address] [place] [address] Paulino Sam MD 31 [place], [place] [email or web address] Hyperparathyroidism (Primary Dx) Social History [...] st Contact Info) Description 01/06/2025 Procedure Pass [address] [address] 05/01/2025 9:00 AM EST Office Visit [facility] Medical [facility] Medicine [address] [place] [address] Manuela Waggoner, DO 234 [facility] 7 [place] [address] 06/13/2025 7:00 PM EDT Appointment [facility] Bone Density [address] [address] Paulino Sam MD [address] [place] [address] [email or web address] 09/11/2025 9:30 AM EDT Appointment [address] [address] Manuela Waggoner, DO 234 [facility], [facility] 7 [place] [address] documented as of this encounter Results * TSH with reflex (07/08/2017 8:57 AM EDT) TSH 2.06 0.27 - 4.20 uIU/mL [facility] Blood 07/08/2017 8:57 AM EDT 07/08/2017 9:00 AM EDT Paulino Sam MD LAB BLOOD ORDERABLES Final R esult Performing Organization Address City/[facility]/ZIP Co de Phone Number [address] [address] * 25-OH vitamin D (07/08/2017 8:57 AM EDT) 25 [place] VIT D (TOTAL) 31 30 - 1,000 ng/mL [facility] Blood 07/08/2017 8:57 AM EDT 07/08/2017 9:00 AM EDT Paulino Sam MD LAB BLOOD ORDERABLES Final R esult Performing Organization Address City/[facility]/ZIP Co de Phone Number [address] [address] documented in this encounter Visit Diagnoses Diagnosis Hyperparathyroidism- Primary Hyperparathyroidism, unspecified documented in this encounter Additional Health Concerns Infection Onset Date Last Indicated Resolved Time 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 09/22/2018 05/14/2022 1:41 AM EST documented as of this encounter Care Teams Plant Protection Guard Relationship Specialty Start Date End Date Manuela Waggoner DO [address] [address] PCP - General Family Medicine 02/04/17 11/27/19 Manuela Waggoner DO [address] [address] PCP - General Family Medicine 11/28/19 Maral Quinn NP 1 [facility] [place] [address] Historical LMR Provider 01/12/17 Brenden Carvajal DO [address] [address] Historical LMR Provider 01/12/17 Darby Saba MD 234 [facility] 3 [place] [address] Historical LMR Provider 01/12/17 2 Manuela Polk PROFESSIONAL MODEL [address] [place] [address] Historical LMR Provider 01/12/1704/06 Manuela Waggoner DO [address] [place] [address] 7 [place] [address] Historical LMR Provider 01/12/17 Crow Man MD [email or web address] Historical LMR Provider 01/12/17 Richard Pacheco MD [address] [place] [address], 2nd [place] [address] Historical LMR Provider 01/12/17 04/06/21 Christofer Keen MD [address] [place] [address], [address] [place] [address] Historical LMR Provider 01/12/17 04/06/21 Rich Pleitez MD [address] [place] [address] 7 [place] [phone] Historical LMR Provider 01/12/17 Krystal Da Silva, [facility] 10 [place] [address] PHCM Prescriptionist 12/10/22 02/28/24 documented as of this encounter Additional Source Comments The information contained in this document represents components of the legal health record. It is not the complete legal health record.[facility]
--- OUTSIDE RECORDS SUMMARY | 2025-01-19 18:37 | XMS_ITS | Encounter Summary ---
Author Organization [facility] Address [address] [place] [address] Phone Care Team Providers Care Retail Special Event Associate Name Role Phone Brenden Carvajal Kathrine DO Unavailable Manuela Waggoner DO Unavailable [phone] Crow Man MD Unavailable [email or web address] Manuela Waggoner DO Primary Care Provider [phone] Krystal Da Silva MEDICAL RADIATION TECH Unavailable [phone] Encounter Details Date Type Department Care Team (Late st Contact Info) Description 12/01/2023 Procedure Pass [address] [address] Social History Tobacco Use Types Packs/Day Years [...] high school, GED, job training, learning the Yemeni language, technical skills, or developing parenting skills)? [...] Contact Info) Description 01/06/2025 Procedure Pass [facility], Mammography[address] [address] 05/01/2025 9:00 AM EST Office Visit [facility] [place] [address] [place] [address] Manuela Waggoner, 234 [facility], [address] [place] [address] [email or web address] 06/13/2025 7:00 PM EDT Appointment [facility], Bone [address] [address] Paulino Sam MD [address] [place] [address] 09/11/2025 9:30 AM EDT Appointment [facility], [facility]- [address] [address] Manuela Waggoner DO 234 [facility] 7 [place] [address] documented as of this encounter Visit Diagnoses Not on filedocumented in this encounter Additional Health Concerns Assessment Noted Time PHQ-2 Depression Total Score: 0 12/23/19 23 1:04 PM EDT documented as of this encounter Care Teams Retail Special Event Associate Relationship Specialty Start Date End Date Manuela Waggoner DO [address] [place] [address] PCP - General Family Medicine 11/28/19 Brenden Carvajal DO [address] [place] [address] [email or web address] Historical LMR Provider 01/12/17 Manuela Waggoner DO [address] [place] [address] Historical LMR Provider 01/12/17 Crow Man MD [email or web address] Historical LMR Provider 01/12/17 Krystal Da Silva, [address] [address] [email or web address] PHCM Litigation Claim Representative 12/10/22 02/28/24 documented as of this encounter Additional Source Comments The information contained in this document represents components of the legal health record. It is not the complete legal health record.[facility]
--- OUTSIDE RECORDS SUMMARY | 2025-01-19 18:37 | XMS_ITS | Encounter Summary ---
Author Organization [facility] Address [address] [facility] [address] [place] [address] Phone Care Team Providers Care Junior Automation Engineer Name Role Phone Maral Quinn SPRAY TECHNICIAN Unavailable [phone] Brenden Carvajal DO Unavailable Darby Saba MD Unavailable [phone] Manuela Polk SPRAY TECHNICIAN Unavailable Unavailable Manuela Waggoner DO Unavailable [phone] Crow Man MD Unavailable [email or web address] Richard Pacheco MD Unavailable [phone] Christofer Keen MD Unavailable [phone] Rich Pleitez MD Unavailable Manuela Waggoner DO Primary Care Provider Manuela Waggoner DO Primary Care Provider Krystal Da Silva [facility] Unavailable Encounter Details Date Type Department Care Team (Late st Contact Info) Description 06/11/2018 Procedure Pass [facility] Endoscopy Admitting Dept Virtual Department 30 [place] [address] Social History Tobacco Use Types Packs/Day Years [...] st Contact Info) Description 01/06/2025 Procedure Pass [address] [address] 05/01/2025 9:00 AM EST Office Visit [facility] Medical [address] [address] Manuela Waggoner DO [address] [address] 06/13/2025 7:00 PM EDT Appointment [facility] Density [address] [address] Paulino Sam MD [address] [place] [address] 09/11/2025 9:30 AM EDT Appointment [address] [address] Manuela Waggoner DO [address] [address] documented as of this encounter Visit Diagnoses Not on filedocumented in this encounter Additional Health Concerns Infection Onset Date Last Indicated Resolved Time 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 09/22/2018 05/14/2022 1:41 AM EST Assessment Noted Time PHQ-2 Depression Total Score: 0 12/25/19 18 10:40 AM EDT documented as of this encounter Care Teams Junior Automation Engineer Relationship Specialty Start Date End Date Manuela Waggoner DO [address] [place] [address] 7 [place] [address] [email or web address] PCP - General Family Medicine 02/04/17 11/27/19 Manuela Waggoner DO [address] [place] [address] 7 [place] [address] [email or web address] PCP - General Family Medicine 11/28/19 Maral Quinn NP [address] [place] [address] Historical LMR Provider 01/12/17 Brenden Carvajal DO [address] [place] [address] 7 [place] [address] [email or web address] Historical LMR Provider 01/12/17 Darby Saba MD [address] [place] [address] 3 [place] [address] Historical LMR Provider 01/12/17 2 Manuela Polk SPRAY TECHNICIAN [address] [place] [address] Historical LMR Provider 01/12/1704/06 Manuela Waggoner DO [address] [place] [address] 7 [place] [address] [email or web address] Historical LMR Provider 01/12/17 Crow Man MD [email or web address] Historical LMR Provider 01/12/17 Richard Pacheco MD [address] [place] [address], [address] [place] [address] [email or web address] Historical LMR Provider 01/12/17 04/06/21 Christofer Keen MD [address] [place] [address] [address] [place] [address] [email or web address] Historical LMR Provider 01/12/17 04/06/21 Rich Pleitez MD [address] [place] [address] 7 [place] [address] Historical LMR Provider 01/12/17 Krystal Da Silva, [facility] 10 [place] [address] [email or web address] PHCM Butcher'S Assistant 12/10/22 02/28/24 documented as of this encounter Additional Source Comments The information contained in this document represents components of the legal health record. It is not the complete legal health record.[facility]
--- OUTSIDE RECORDS SUMMARY | 2025-01-19 18:37 | XMS_ITS | Encounter Summary ---
Author Organization [facility] Address [address] [facility] ([place], [place]) [address] [place] [address] Phone Care Team Providers Care Tar Chaser Name Role Phone Brenden Carvajal DO Unavailable Manuela Waggoner DO Unavailable [phone] Crow Man MD Unavailable [email or web address] Maunela Waggoner DO Primary Care Provider [phone] Krystal Da Silva RETAIL POS SPECIALIST Unavailable [phone] Encounter Details Date Type Department Care Team (Late st Contact Info) Description 07/23/2023 Transcribe Orders Virtual Department 30 [place] [address] Tai Lopez MD [address] [address] [email or web address] Calculus of kidney (Primary Dx) Social History Tobacco Use Types [...] high school, GED, job training, learning the Solomon Islander language, technical skills, or developing parenting skills)? [...] st Contact Info) Description 01/06/2025 Procedure Pass [facility] [address] [place] [address] 05/01/2025 9:00 AM EST Office Visit [facility] Medical [facility] Medicine [address] [place] [address] Manuela Waggoner, DO 234 [facility], [address] [place] [address] [email or web address] 06/13/2025 7:00 PM EDT Appointment [facility], Bone Density [facility] 30 [place] [address] Paulino Sam MD 31 [place] [address] 09/11/2025 9:30 AM EDT [facility]ointment [facility] 30 [place] [address] Manuela Waggoner, DO [address] [place] [address], [address] [place] [address] [email or web address] documented as of this encounter Results * XR ABDOMEN 1 VIEW (08/25/2023 9:53 AM EDT) Anatomical Region Laterality Modality Abdomen Computed Radiogr aphy 08/25/2023 8:09 PM EDT Impressions 08/26/2023 5:02 AM EDT FINDINGS/IMPRESSION: Unchanged punctate clustered calcifications projecting over the left lower interpolar renal shadow, likely renal stones. No other radiographically evident urolithiasis. Nonobstructive bowel gas pattern. Narrative 08/26/2023 5:02 AM EDT XR ABDOMEN 1 VIEW Referring clinician's provided indication for this examination in [facility]: Outside Radiology Order; calculus of kidney COMPARISON: XR ABDOMEN 1 VIEW Procedure Note Nicholas Hogan MD - 08/26/2023 XR ABDOMEN 1 VIEW Referring clinician's provided indication for this examination in [facility]:Outside Radiology Order; calculus of kidney COMPARISON: XR ABDOMEN 1 VIEW IMPRESSION: FINDINGS/IMPRESSION: Unchanged punctate clustered calcifications projecting over the left lowerinterpolar renal shadow, likely renal stones. No other radiographicallyevident urolithiasis. Nonobstructive bowel gas pattern. us Tai Lopez MD IMG XR ABDOMEN Final Re sult * US Kidneys and Bladder (08/25/2023 9:49 AM EDT) Anatomical Region Laterality Modality Abdomen, Kidney Ultrasound 08/25/2023 8:09 PM EDT Impressions 08/26/2023 5:18 AM EDT Nonobstructing left nephrolithiasis. No hydronephrosis. Postvoid bladder residual volume 25 mL. Narrative 08/26/2023 5:18 AM EDT US KIDNEYS AND BLADDER Referring clinician's provided indication for this examination in [facility]: Outside Radiology Order; calculus of kidney TECHNIQUE: Kidney Ultrasound. COMPARISON: CT abdomen/pelvis from 2019 FINDINGS: Right Kidney: Size: 9.7 cm cm No shadowing stones or hydronephrosis. Left Kidney: Size: 11.8 cm Punctate echogenic shadowing foci in the lower calyces. No hydronephrosis. Simple appearing cyst. Bladder: No focal wall thickening. Prevoid volume 232 mL. Post void volume 25 mL (11% prevoid volume). Procedure Note Nicholas Hogan MD - 08/26/2023 US KIDNEYS AND BLADDER Referring clinician's provided indication for this examination in [facility]:Outside Radiology Order; calculus of kidney TECHNIQUE: Kidney Ultrasound. COMPARISON: CT abdomen/pelvis from 2019 FINDINGS: Right Kidney: Size: 9.7 cm cm No shadowing stones or hydronephrosis. Left Kidney: Size: 11.8 cm Punctate echogenic shadowing foci in the lower calyces. Nohydronephrosis. Simple appearing cyst. Bladder: No focal wall thickening. Prevoid volume 232 mL. Post void wdrapu03 mL (11% prevoid volume). IMPRESSION: Nonobstructing left nephrolithiasis. No hydronephrosis. Postvoid bladder residual volume 25 mL. us Tai CEEG US RENAL Final Re sult documented in this encounter Visit Diagnoses Diagnosis Calculus of kidney- Primary Calculus of kidney Calculus of kidney documented in this encounter Additional Health Concerns Assessment Noted Time PHQ-2 Depression Total Score: 0 12/23/19 23 1:04 PM EDT documented as of this encounter Care Teams Tar Chaser Relationship Specialty Start Date End Date HemaJaymie mylesica RishiDO 234 [facility] 7 [place] [address] PCP - General Family Medicine 11/28/19 Brenden Carvajal DO [address] [place] [address] 7 [place] [address] Historical LMR Provider 01/12/17 Manuela Waggoner DO [address] [place] [address] 7 [place] [address] Historical LMR Provider 01/12/17 Crow Man MD [email or web address] Historical LMR Provider 01/12/17 Krystal Da Silva, [address] [address] PHCM Shirt Cleaner 12/10/22 02/28/24 documented as of this encounter Additional Source Comments The information contained in this document represents components of the legal health record. It is not the complete legal health record.[facility]
--- OUTSIDE RECORDS SUMMARY | 2025-01-19 18:37 | XMS_ITS | Encounter Summary ---
Author Organization [facility] Address [address] [facility] [address] [place] [address] Phone Care Team Providers Care Change Coordinator Name Role Phone Maral Quinn TILE PICKER Unavailable Brenden Carvajal DO Unavailable Darby Saba MD Unavailable Manuela Polk TILE PICKER Unavailable Unavailable DacManuela myles DO Unavailable Crow Man MD Unavailable [email or web address] Richard Pacheco MD Unavailable Christofer Keen MD Unavailable [phone] Rich Pleitez MD Unavailable [phone] Manuela Waggoner DO Primary Care Provider [phone] Manuela Waggoner DO Primary Care Provider [phone] Krystal Da Silva [facility] Unavailable Encounter Details Date Type Department Care Team (Latest Contact Info) Description 09/08/2017 Transcribe Orders [address] [place] [address] Paulino Sam MD 31 [place], [place] [email or web address] Hyperparathyroidism (Primary Dx) Social [...] st Contact Info) Description 01/06/2025 Procedure Pass [address] [address] 05/01/2025 9:00 AM EST Office Visit [facility] Medical [facility] Medicine [address] [place] [address] Manuela Waggoner, DO 234 [facility] 7 [place] [address] 06/13/2025 7:00 PM EDT Appointment [facility] Bone Density [address] [address] Paulino Sam MD [address] [place] [address] [email or web address] 09/11/2025 9:30 AM EDT Appointment [address] [address] Manuela Waggoner, DO 234 [facility] 7 [place] [address] documented as of this encounter Results * (ABNORMAL) Parathyroid hormone (PTH) (09/08/2017 8:34 AM EDT) PARATHYROID HORMONE 71(H) 15 - 65 pg/mL [facility] Blood 09/08/2017 8:34 AM EDT 09/08/2017 8:38 AM EDT us Paulino Sam MD LAB BLOOD ORDERABLES Final R esult [facility] 30 [place] [address] documented in this encounter Visit Diagnoses Diagnosis Hyperparathyroidism- Primary Hyperparathyroidism, unspecified documented in this encounter Additional Health Concerns Infection Onset Date Last Indicated Resolved Time 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 09/22/2018 05/14/2022 1:41 AM EST documented as of this encounter Care Teams Change Coordinator Relationship Specialty Start Date End Date Manuela Waggoner DO 234 [facility] 7 [place] [address] PCP - General Family Medicine 02/04/17 11/27/19 Manuela Waggoner DO [address] [place] [address] 7 [place] [address] PCP - General Family Medicine 11/28/19 Maral Quinn TILE PICKER 1 [place] [address] Historical LMR Provider 01/12/17 Brenden Carvajal DO [address] [place] [address] 7 [place] [address] Historical LMR Provider 01/12/17 Darby Saba MD 234 [facility] [address] [place] [address] Historical LMR Provider 01/12/17 2 Manuela Polk, TILE PICKER [address] [place] [address] Historical LMR Provider 01/12/1704/06 Manuela Waggoner DO [address] [place] [address] 7 [place] [address] Historical LMR Provider 01/12/17 Crow Man MD [email or web address] Historical LMR Provider 01/12/17 Richard Pacheco MD [address] [place] [address], 2[address] [place] [address] Historical LMR Provider 01/12/17 04/06/21 Christofer Keen MD [address] [place] [address] Historical LMR Provider 01/12/17 04/06/21 Rich Pleitez MD [address] [place] [id number] Historical LMR Provider 01/12/17 Krystal Da Silva, [address] [address] PHCM Caster Helper 12/10/22 02/28/24 documented as of this encounter Additional Source Comments The information contained in this document represents components of the legal health record. It is not the complete legal health record.[facility]
--- OUTSIDE RECORDS SUMMARY | 2025-01-19 18:37 | XMS_ITS | Encounter Summary ---
Author Organization [facility] Address [address] [place] [address] Phone Care Team Providers Care Product Lister Name Role Phone Brenden Carvajal DO Unavailable Manuela Waggoner DO Unavailable [phone] Crow Man MD Unavailable [email or web address] Manuela Waggoner DO Primary Care Provider [phone] Encounter Details Date Type Department Care Team (Late st Contact Info) Description 03/22/2024 Procedure Pass [facility] Endoscopy Admitting Dept Virtual Department [address] [place] [phone] Social History Tobacco Use Types Packs/Day Years [...] st Contact Info) Description 01/06/2025 Procedure Pass [facility] 30 [place] [address] 05/01/2025 9:00 AM EST Office Visit [facility] Medicine 234 [place] [address] Manuela Waggoner DO [address] [address] 06/13/2025 7:00 PM EDT Appointment [address] [address] Paulino Sam MD [address] [place] [address] 09/11/2025 9:30 AM EDT Appointment [address] [address] Manuela Waggoner DO [address] [address] documented as of this encounter Visit Diagnoses Not on filedocumented in this encounter Additional Health Concerns Assessment Noted Time PHQ-2 Depression Total Score: 0 12/23/19 23 1:04 PM EDT documented as of this encounter Care Teams Product Lister Relationship Specialty Start Date End Date Manuela Waggoner DO [address] [place] [address] PCP - General Family Medicine 11/28/19 Brenden Carvajal DO [address] [place] [address] Historical LMR Provider 01/12/17 Manuela Waggoner DO [address] [place] [address] Historical LMR Provider 01/12/17 Crow Man MD [email or web address] Historical LMR Provider 01/12/17 documented as of this encounter Additional Source Comments The information contained in this document represents components of the legal health record. It is not the complete legal health record.[facility]
--- OUTSIDE RECORDS SUMMARY | 2025-01-19 18:37 | XMS_ITS | Encounter Summary ---
Author Organization [facility] Address [address] [place] [address] Phone Care Team Providers Care Tenon Machine Operator Name Role Phone Brenden Carvajal Kathrine DO Unavailable Manuela Waggoner DO Unavailable Crow Man MD Unavailable [email or web address] Manuela Waggoner DO Primary Care Provider [phone] Krystal Da Silva DRAG SAWYER Unavailable [phone] Encounter Details Date Type Department Care Team (Late st Contact Info) Description 09/24/2021 Procedure Pass [facility], [address] [address] Social History Tobacco Use Types Packs/Day Years Used Date Smoking Tobacco: Never Smokeless Tobacco: Never Alcohol Use Standard Drinks/Week Comments Yes 0 (1 standard drink = 0.6 oz pur e alcohol) Rare Child or Family Care Answer Date Record ed Do you have problems with on e of the following making it difficult for you to work, study, or receive health care? No 02/08/2021 Education Answer Date Recorded Are you interested in help w ith more adult education (for example, completing high school, GED, job training, learning the Barbadian language, technical skills, or developing parenting skills)? No 02/08/2021 Food Answer Date Recorded Within the past 6 months we worried whether our food would run out before we got money to buy more. Never True 02/08/2021 Within the past 6 months the food we bought just didn't last and we didn't have enough money to get more. Never True Paying Utility Bills Answer Date Record ed Do you have trouble paying your heating or elect ricity bill? No 02/08/2021 Transportation Answer Date Recorded Has the lack of transportati on kept you from medical appointments or from getting medications? No 02/08/2021 Comments No Sex and Gender Information Value Date Recorded Sex Assigned at Female 09/08/2018 3:07 AM EDT Legal Sex Female 9:44 PM EDT Gender Identity Female 09/08/2018 3:07 AM EDT Sexual Orientation Straight 09/08/2018 3: 07 AM EDT documented as of this encounter Plan of Treatment Upcoming Encounters Date Type Department Care Team (Late st Contact Info) Description 01/06/2025 Procedure Pass [address] [address] 05/01/2025 9:00 AM EST Office Visit [facility] Medical [facility] Medicine [address] [place] [address] Manuela Waggoner, DO [address] [address] 06/13/2025 7:00 PM EDT Appointment [address] [address] Paulino Sam MD [address] [place] [address] 09/11/2025 9:30 AM EDT Appointment [address] [address] Manuela Waggoner DO [address] [address] documented as of this encounter Visit Diagnoses Not on filedocumented in this encounter Additional Health Concerns Infection Onset Date Last Indicated Resolved Time 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 09/22/2018 05/14/2022 1:41 AM EST Assessment Noted Time PHQ-2 Depression Total Score: 2 02/09/20 21 5:04 PM EST documented as of this encounter Care Teams Tenon Machine Operator Relationship Specialty Start Date End Date HemaJaymie myleslauri [place] DO 234 [facility] 7 [place] [address] PCP - General Family Medicine 11/28/19 Brenden Carvajal, DO [address] [place] [address] 7 [place] [address] Historical LMR Provider 01/12/17 HemaManuela DO [address] [place] [address] 7 [place] [address] Historical LMR Provider 01/12/17 Crow Man MD [email or web address] Historical LMR Provider 01/12/17 Krystal Da Silva, [address] [address] PHCM Preschool Special Education Teacher 12/10/22 02/28/24 documented as of this encounter Additional Source Comments The information contained in this document represents components of the legal health record. It is not the complete legal health record.[facility]
--- OUTSIDE RECORDS SUMMARY | 2025-01-19 18:37 | XMS_ITS | Encounter Summary ---
Author Organization [facility] Address [address] [place] [address] Phone Care Team Providers Care Vamp Throater Name Role Phone Brenden Carvajal Kathrine DO Unavailable Manuela Waggoner DO Unavailable [phone] Crow Man MD Unavailable [email or web address] Manuela Waggoner DO Primary Care Provider [phone] Krystal Da Silva PETROLOGIST Unavailable Encounter Details Date Type Department Care Team (Late st Contact Info) Description 06/14/2021 Procedure Pass [address] [id number] Social History Tobacco Use Types Packs/Day Years [...] high school, GED, job training, learning the Australian language, technical skills, or developing parenting skills)? [...] st Contact Info) Description 01/06/2025 Procedure Pass [address] [address] 05/01/2025 9:00 AM EST Office Visit [facility] Medical [facility] Medicine [address] [place] [address] Manuela Waggoner, DO [address] [address] [email or web address] 06/13/2025 7:00 PM EDT Appointment [facility] Bone Density [address] [address] Paulino Sam MD [address] [place] [address] 09/11/2025 9:30 AM EDT Appointment [address] [address] Manuela Waggoner DO [address] [address] documented as of this encounter Visit Diagnoses Not on filedocumented in this encounter Additional Health Concerns Infection Onset Date Last Indicated Resolved Time 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 09/22/2018 05/14/2022 1:41 AM EST Assessment Noted Time PHQ-2 Depression Total Score: 2 02/09/20 21 5:04 PM EST documented as of this encounter Care Teams Vamp Throater Relationship Specialty Start Date End Date Hemaus Manuela Blackwell DO [address] [place] [address] 7 [place] [address] PCP - General Family Medicine 11/28/19 Brenden Carvajal, DO [address] [place] [address] 7 [place] [address] Historical LMR Provider 01/12/17 Manuela Waggoner DO [address] [place] [address] 7 [place] [address] Historical LMR Provider 01/12/17 Crow Man MD [email or web address] Historical LMR Provider 01/12/17 Krystal Da Silva [address] [address] PHCM Medical Van Driver 12/10/22 02/28/24 documented as of this encounter Additional Source Comments The information contained in this document represents components of the legal health record. It is not the complete legal health record.[facility]
--- OUTSIDE RECORDS SUMMARY | 2025-01-19 18:37 | XMS_ITS | Encounter Summary ---
Author Organization [facility] Address [address] [place] [address] Phone Care Team Providers Care Assembler Semiconductor Name Role Phone Brenden Carvajal Kathrine DO Unavailable Manuela Waggoner DO Unavailable [phone] Crow Man MD Unavailable [email or web address] Manuela Waggoner DO Primary Care Provider [phone] Krystal Da Silva CRIME SCENE EVIDENCE TECHNICIAN Unavailable [phone] Encounter Details Date Type Department Care Team (Late st Contact Info) Description 10/02/2022 Procedure Pass [address] [address] Social History Tobacco Use Types Packs/Day Years [...] high school, GED, job training, learning the Slovak language, technical skills, or developing parenting skills)? [...] st Contact Info) Description 01/06/2025 Procedure Pass [facility], Mammography[address] [address] 05/01/2025 9:00 AM EST Office Visit [facility] [address] [place] [address] Manuela Waggoner, 234 [facility], [address] [place] [address] 06/13/2025 7:00 PM EDT Appointment [facility], Bone [address] [address] Paulino Sam MD [address] [place] [address] [email or web address] 09/11/2025 9:30 AM EDT Appointment [facility], [facility]- [address] [address] Manuela Waggoner DO 234 [facility] 7 [place] [address] [email or web address] documented as of this encounter Visit Diagnoses Not on filedocumented in this encounter Additional Health Concerns Assessment Noted Time PHQ-2 Depression Total Score: 0 12/23/19 23 1:04 PM EDT documented as of this encounter Care Teams Assembler Semiconductor Relationship Specialty Start Date End Date Manuela Waggoner DO [address] [place] [address] PCP - General Family Medicine 11/28/19 Brenden Carvajal DO [address] [place] [address] Historical LMR Provider 01/12/17 Manuela Waggoner DO [address] [place] [address] Historical LMR Provider 01/12/17 Crow Man MD [email or web address] Historical LMR Provider 01/12/17 Krystal Da Silva, [address] [address] [email or web address] PHCM Oil Plant Operator 12/10/22 02/28/24 documented as of this encounter Additional Source Comments The information contained in this document represents components of the legal health record. It is not the complete legal health record.[facility]
--- OUTSIDE RECORDS SUMMARY | 2025-01-19 18:37 | XMS_ITS | Encounter Summary ---
Author Organization [facility] Address [address] [facility] [address] [place] [address] Phone Care Team Providers Care Solar Systems Designer Name Role Phone Maral Quinn WAITSTAFF Unavailable Brenden Carvajal DO Unavailable Darby Saba MD Unavailable [phone] Manuela Polk WAITSTAFF Unavailable Unavailable Manuela Waggoner DO Unavailable [phone] Crow Man MD Unavailable [email or web address] Richard Pacheco MD Unavailable [phone] Christofer Keen MD Unavailable [phone] Rich Pleitez MD Unavailable [phone] Manuela Waggoner DO Primary Care Provider Krystal Da Silva [facility] Unavailable [phone] Encounter Details Date Type Department Care Team (Late st Contact Info) Description 01/04/2020 Ancillary Orders [facility] 234 [place], [place] [phone] Manuela Waggoner DO 234 [facility], [address] [place] [address] [email or web address] Breast screening Social History Tobacco Use Types [...] st Contact Info) Description 01/06/2025 Procedure Pass [address] [address] 05/01/2025 9:00 AM EST Office Visit [facility] Medical [address] [address] Manuela Waggoner, DO [address] [place] [address] 06/13/2025 7:00 PM EDT Appointment [facility] Bone Density [address] [address] Paulino Sam MD [address] [place] [address] 09/11/2025 9:30 AM EDT Appointment [address] [address] Manuela Waggoner, DO [address] [address] documented as of this encounter Results * BI MAMMOGRAM SCREENING WITH TOMOSYNTHESIS WITH CAD (BILATERAL) (09/10/2020 9:48 AM EDT) Anatomical Region Laterality Modality Breast Left, Breast Right, Breast Bilateral Bila teral Mammography 09/10/2020 11:4 3 AM EDT Impressions 09/10/2020 11:44 AM EDT No mammographic change indicative of malignancy. Routine screening is recommended. BI-RADS CATEGORY: 1 - Negative. DENSITY: There are scattered fibroglandular densities. Narrative 09/10/2020 11:44 AM EDT Bilateral full-field digital screening mammography is obtained and read in conjunction with computer-aided detection. Tomosynthesis as well as 2-D C view imaging of both breasts in two planes also obtained. Comparison made to multiple prior, most recent March 16, 2019, and most remote December 16, 2011. No dominant mass, architectural distortion, worrisome asymmetry, or suspicious calcification is identified. No skin or nipple finding of concern is appreciated. Procedure Note Francisco Loera MD - 09/10/2020 Bilateral full-field digital screening mammography is obtained and read inconjunction with computer-aided detection. Tomosynthesis as well as 2-D Cview imaging of both breasts in two planes also obtained. Comparison madeto multiple prior, most recent March 16, 2019, and most remoteDecember 16, 2011. No dominant mass, architectural distortion, worrisome asymmetry, orsuspicious calcification is identified. No skin or nipple finding ofconcern is appreciated. IMPRESSION: No mammographic change indicative of malignancy. Routine screening isrecommended. BI-RADS CATEGORY: 1 - Negative. DENSITY: There are scattered fibroglandular densities. Manuela Waggoner DO IMG MG EXAMS Final [...] documented as of this encounter Care Teams Solar Systems Designer Relationship Specialty Start Date End Date Manuela Waggoner DO [address] [place] [address], [address] [place] [address] PCP - General Family Medicine 11/28/19 Maral Quinn WAITSTAFF 1 [place] [address] Historical LMR Provider 01/12/17 Brenden Carvajal DO [address] [place] [address] 7 [place] [address] [email or web address] Historical LMR Provider 01/12/17 Darby Saba MD [address] [place] [address] 3 [place] [address] Historical LMR Provider 01/12/17 2 Manuela Polk WAITSTAFF [address] [place] [address] Historical LMR Provider 01/12/1704/06 Manuela Waggoner DO [address] [place] [address] 7 [place] [address] Historical LMR Provider 01/12/17 Crow Man MD [email or web address] Historical LMR Provider 01/12/17 Richard Pacheco MD [address] [place] [address], [address] [place] [address] Historical LMR Provider 01/12/17 04/06/21 Christofer Keen MD [address] [place] [address], [address] [place] [address] Historical LMR Provider 01/12/17 04/06/21 Rich Pleitez MD [address] [place] [id number] Historical LMR Provider 01/12/17 Krystal Da Silva, [address] [address] PHCM Music Executive 12/10/22 02/28/24 documented as of this encounter Additional Source Comments The information contained in this document represents components of the legal health record. It is not the complete legal health record.[facility]
--- OUTSIDE RECORDS SUMMARY | 2025-01-19 18:37 | XMS_ITS | Encounter Summary ---
Author Organization [facility] Address [address] [place] [address] [place] [address] Phone Care Team Providers Care English Horn Player Name Role Phone Maral Quinn [employer] COMPANY TRUCK DRIVER Unavailable Brenden Carvajal DO Unavailable Darby Saba MD Unavailable [phone] Manuela Polk [employer] COMPANY TRUCK DRIVER Unavailable Unavailable Manuela Waggoner DO Unavailable Crow Man MD Unavailable [email or web address] Richard Pacheco MD Unavailable Christofer Keen MD Unavailable Rich Pleitez MD Unavailable Manuela Waggoner DO Primary Care Provider Manuela Waggoner DO Primary Care Provider [phone] Krystal Da Silva [facility] Unavailable [phone] Encounter Details Date Type Department Care Team (Late st Contact Info) Description 11/06/2017 Ancillary Orders Virtual Department 30 [place] [address] Jdui [place] [address] [phone] [email or web address] Kidney stone Social History Tobacco Use Types Packs/Day Years Used Date Smoking Tobacco: Never Smokeless Tobacco: Never Comments Unknown Sex and Gender Information Value Date Recorded Sex Assigned at Female 09/08/2018 3:07 AM EDT Legal Sex Female 9:44 PM EDT Gender Identity Female 09/08/2018 3:07 AM EDT Sexual Orientation Straight 09/08/2018 3: 07 AM EDT documented as of this encounter Plan of Treatment Upcoming Encounters Date Type Department Care Team (Late st Contact Info) Description 01/06/2025 Procedure Pass [address] [address] 05/01/2025 9:00 AM EST Office Visit [facility] Medical [address] [address] Manuela Waggoner, DO [address] [place] [address] 06/13/2025 7:00 PM EDT Appointment [facility] Density [address] [address] Paulino Sam MD [address] [place] [address] 09/11/2025 9:30 AM EDT Appointment [address] [address] Manuela Waggoner, DO 234 [facility] 7 [place] [address] documented as of this encounter Results * XR ABDOMEN 1 VIEW (01/13/2018 8:44 AM EDT) Anatomical Region Laterality Modality Abdomen Radiographic Christiana ging 01/13/2018 8:52 AM EDT Impressions 01/13/2018 8:56 AM EDT 1. Stable left upper renal pole nephrolithiasis. 2. Moderate colonic stool volume. POS - [id number] Narrative 01/13/2018 8:56 AM EDT HISTORY: As above. COMPARISON: 12/17/2016. ABDOMEN RADIOGRAPH FINDINGS: 2 supine views obtained. Imaged heart is normal and imaged lung bases are clear. Stable mild L5-S1 facet arthropathy. Increase in diffuse moderate colonic stool volume. Stable faint 3 mm left upper renal pole radiopaque density. Procedure Note Pierre Díaz MD - 01/13/2018 HISTORY: As above. COMPARISON: 12/17/2016. ABDOMEN RADIOGRAPH FINDINGS: 2 supine views obtained. Imaged heart is normal and imaged lung bases areclear. Stable mild L5-S1 facet arthropathy. Increase in diffuse moderatecolonic stool volume. Stable faint 3 mm left upper renal pole radiopaquedensity. IMPRESSION: 1. Stable left upper renal pole nephrolithiasis. 2. Moderate colonic stool volume. POS - [id number] us Judi ALLEN IMG XR ABDOMEN Final Resu lt * US Kidneys (01/13/2018 8:40 AM EDT) Anatomical Region Laterality Modality Abdomen, Kidney Ultrasound 01/13/2018 9:54 AM EDT Impressions 01/13/2018 10:07 AM EDT Right kidney: Mild fullness of the collecting system. Single nonobstructing calculus measuring 0.3 cm. Left kidney: Mild hydronephrosis. At least three calculi measuring up to 0.6 cm. POS - [id number] Narrative 01/13/2018 10:07 AM EDT EXAM: ULTRASOUND KIDNEYS COMPARISON: Prior ultrasound on December 17, 2016 FINDINGS: RIGHT KIDNEY: The right kidney is within normal limits for size and measures 10.8 cm in sagittal dimension. Parenchyma is within normal limits. Cortical thickness and echogenicity are within normal limits. Mild fullness of the collecting system. One echogenic focus measuring 0.3 cm in the interpolar region of the kidney. LEFT KIDNEY: The left kidney is within normal limits for size and measures 11.8 cm in sagittal dimension. Parenchyma is within normal limits. Cortical thickness and echogenicity are within normal limits. Mild hydronephrosis. At least three echogenic foci in the interpolar region and upper poles measuring up to 0.6 cm. Procedure Note Kristal Baker MD - 01/13/2018 EXAM: ULTRASOUND KIDNEYS COMPARISON: Prior ultrasound on December 17, 2016 FINDINGS: RIGHT KIDNEY: The right kidney is within normal limits for size andmeasures 10.8 cm in sagittal dimension. Parenchyma is within normallimits. Cortical thickness and echogenicity are within normal limits. Mildfullness of the collecting system. One echogenic focus measuring 0.3 cm inthe interpolar region of the kidney. LEFT KIDNEY: The left kidney is within normal limits for size and llutbnqh62.8 cm in sagittal dimension. Parenchyma is within normal limits.Cortical thickness and echogenicity are within normal limits. Mildhydronephrosis. At least three echogenic foci in the interpolar region andupper poles measuring up to 0.6 cm. IMPRESSION: Right kidney: Mild fullness of the collecting system. Singlenonobstructing calculus measuring 0.3 cm. Left kidney: Mild hydronephrosis. At least three calculi measuring up to0.6 cm. POS - [id number] Judi ALLEN [facility] RENAL Final Resu lt documented in this encounter Visit Diagnoses Diagnosis Kidney stone Calculus of kidney Kidney stone Calculus of kidney Kidney stone Calculus of kidney documented in this encounter Additional Health Concerns Infection Onset Date Last Indicated Resolved Time 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 09/22/2018 05/14/2022 1:41 AM EST documented as of this encounter Care Teams English Horn Player Relationship Specialty Start Date End Date Manuela Waggoner DO [address] [place] [address], [address] [place] [address] PCP - General Family Medicine 02/04/17 11/27/19 Manuela Waggoner DO 234 [facility] 7 [place] [address] [email or web address] PCP - General Family Medicine 11/28/19 Maral Quinn NP 1 [place] [address] Historical LMR Provider 01/12/17 Brenden Carvajal DO [address] [place] [address] 7 [place] [address] [email or web address] Historical LMR Provider 01/12/17 Darby Saba MD [address] [place] [address] 3 [place] [address] Historical LMR Provider 01/12/17 2 Manuela Polk NP [address] [place] [address] Historical LMR Provider 01/12/1704/06 Manuela Waggoner DO [address] [place] [address] 7 [place] [address] [email or web address] Historical LMR Provider 01/12/17 Crow Man MD [email or web address] Historical LMR Provider 01/12/17 Richard Pacheco MD 22 [facility], 2nd [place] [address] [email or web address] Historical LMR Provider 01/12/17 04/06/21 Christofer Keen MD [address] [place] [address] [place] [address] [email or web address] Historical LMR Provider 01/12/17 04/06/21 Rich Pleitez MD [address] [place] [address] 7 [place] [address] Historical LMR Provider 01/12/17 Krystal Da Silva, [facility] 10 [place] [address] [email or web address] PHCM Folded Towel Machine Operator 12/10/22 02/28/24 documented as of this encounter Additional Source Comments The information contained in this document represents components of the legal health record. It is not the complete legal health record.[facility]
--- OUTSIDE RECORDS SUMMARY | 2025-01-19 18:37 | XMS_ITS | Encounter Summary ---
Author Organization [facility] Address [email or web address] [facility] [address] [place] [address] Phone Care Team Providers Care Orchard Sprayer Name Role Phone Brenden Carvajal Kathrine DO Unavailable Manuela Waggoner DO Unavailable [phone] Crow Man MD Unavailable [facility] [email or web address] Manuela Waggoner DO Primary Care Provider Krystal Da Silva CUSTOMER SERVICE COORDINATOR Unavailable [phone] Encounter Details Date Type Department Care Team (Late st Contact Info) Description 04/21/2022 Transcribe Orders Virtual Department [address] [place] [address] Tai Lopez MD [address] [address] [email or web address] Calculus of kidney (Primary Dx) Social History [...] high school, GED, job training, learning the Greek language, technical skills, or developing parenting skills)? [...] basis, and looking for work? No 02/12/2022 Comments No Sex and Gender Information Value Date Recorded Sex Assigned at Female 09/08/2018 3:07 AM EDT Legal Sex Female 9:44 PM EDT Gender Identity Female 09/08/2018 3:07 AM EDT Sexual Orientation Straight 09/08/2018 3: 07 AM EDT documented as of this encounter Plan of Treatment Upcoming Encounters Date Type Department Care Team (Late st Contact Info) Description 01/06/2025 Procedure Pass [facility], [address] [address] 05/01/2025 9:00 AM EST Office Visit [facility] [address] [place] [address] Manuela Waggoner, DO 234 [facility], [address] [place] [address] 06/13/2025 7:00 PM EDT Appointment [facility], [address] [address] Paulino Sam MD [address] [place] [address] [email or web address] 09/11/2025 9:30 AM EDT Appointment [facility], [facility] [address] [place] [address] Manuela Waggoner, DO [address] [place] [address], [address] [place] [address] [email or web address] documented as of this encounter Results * XR ABDOMEN 1 VIEW (05/20/2022 9:51 AM EST) Anatomical Region Laterality Modality Abdomen Computed Radiogr aphy 05/20/2022 6:20 PM EST Impressions 05/20/2022 6:30 PM EST Small left renal stones. Narrative 05/20/2022 6:30 PM EST XR ABDOMEN 1 VIEW COMPARISON: Radiographs on March 01, 2020. FINDINGS: Tubes/Lines: None Bowel: Normal. No bowel dilatation. Others: There is 3 adjacent tiny 0.1-0.2 cm calcifications projecting over the left renal shadow. Procedure Note Kristal Baker MD - 05/20/2022 XR ABDOMEN 1 VIEW COMPARISON: Radiographs on March 01, 2020. FINDINGS: Tubes/Lines: None Bowel: Normal. No bowel dilatation. Others: There is 3 adjacent tiny 0.1-0.2 cm calcifications projecting overthe left renal shadow. IMPRESSION: Small left renal stones. us Tai Lopez MD IMG XR ABDOMEN Final Re sult * US Kidneys and Bladder (05/20/2022 9:41 AM EST) Anatomical Region Laterality Modality Abdomen, Kidney Ultrasound 05/20/2022 12:5 6 PM EST Impressions 05/20/2022 1:07 PM EST 1. Redemonstration of nonobstructing left-sided renal calculi. Additional punctate bilateral echogenic foci which may reflect small nonobstructing calculi versus vascular calcifications. 2. Redemonstration of bilateral prominent extrarenal pelvis. No definite hydronephrosis. Narrative 05/20/2022 1:07 PM EST US KIDNEYS AND BLADDER TECHNIQUE: Kidney Ultrasound. COMPARISON: Renal sonography 03/01/2020 FINDINGS: Right Kidney: Size: 10.4 cm Normal corticomedullary differentiation and cortical thickness. Redemonstration of prominent extrarenal pelvis. There is a punctate echogenic focus at the mid kidney with associated artifact which may represent a vascular calcification versus nonobstructing calculus. No definite shadowing calculus demonstrated. No definite hydronephrosis. No focal lesion demonstrated. Left Kidney: Size: 12.5 cm Normal corticomedullary differentiation and cortical thickness. Redemonstration of prominent extrarenal pelvis. Multiple punctate echogenic foci are demonstrated measuring up to 5 mm at the mid kidney and 4 mm at the lower pole. No definite hydronephrosis. No focal focal lesion demonstrated Bladder: The urinary bladder is physiologically distended. Bilateral ureteral jets are demonstrated. Prevoid bladder volume: Approximately 160 mL Post void bladder volume: Approximately 26 mL (16%) Procedure Note Ashtyn Mendoza MD - 05/20/2022 US KIDNEYS AND BLADDER TECHNIQUE: Kidney Ultrasound. COMPARISON: Renal sonography 03/01/2020 FINDINGS: Right Kidney: Size: 10.4 cm Normal corticomedullary differentiation and cortical thickness.Redemonstration of prominent extrarenal pelvis. There is a punctateechogenic focus at the mid kidney with associated artifact which mayrepresent a vascular calcification versus nonobstructing calculus. Nodefinite shadowing calculus demonstrated. No definite hydronephrosis. Nofocal lesion demonstrated. Left Kidney: Size: 12.5 cm Normal corticomedullary differentiation and cortical thickness.Redemonstration of prominent extrarenal pelvis. Multiple punctateechogenic foci are demonstrated measuring up to 5 mm at the mid kidney and4 mm at the lower pole. No definite hydronephrosis. No focal focal lesiondemonstrated Bladder: The urinary bladder is physiologically distended. Bilateralureteral jets are demonstrated. Prevoid bladder volume: Approximately 160 mL Post void bladder volume: Approximately 26 mL (16%) IMPRESSION: 1. Redemonstration of nonobstructing left-sided renal calculi. Additionalpunctate bilateral echogenic foci which may reflect small nonobstructingcalculi versus vascular calcifications. 2. Redemonstration of bilateral prominent extrarenal pelvis. No definitehydronephrosis. Tai Lopez MD [facility] RENAL Final Re sult documented in this encounter Visit Diagnoses Diagnosis Calculus of kidney- Primary Calculus of kidney Calculus of kidney documented in this encounter Additional Health Concerns Infection Onset Date Last Indicated Resolved Time 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 09/22/2018 05/14/2022 1:41 AM EST Assessment Noted Time PHQ-2 Depression Total Score: 0 02/13/20 22 8:31 PM EST documented as of this encounter Care Teams Orchard Sprayer Relationship Specialty Start Date End Date Manuela Waggoner DO [address] [place] [address] [email or web address] PCP - General Family Medicine 11/28/19 Brenden Carvajal DO [address] [place] [address] [email or web address] Historical LMR Provider 01/12/17 Manuela Waggoner DO [address] [place] [address] [email or web address] Historical LMR Provider 01/12/17 Crow Man MD [email or web address] Historical LMR Provider 01/12/17 Krystal Da Silva, [address] [address] [email or web address] PHCM Environmental Assistant 12/10/22 02/28/24 documented as of this encounter Additional Source Comments The information contained in this document represents components of the legal health record. It is not the complete legal health record.[facility]
--- OUTSIDE RECORDS SUMMARY | 2025-01-19 18:37 | XMS_ITS | Encounter Summary ---
Author Organization [facility] Address [address] [place] [address] [place] [address] Phone Care Team Providers Care Bindery Library Technical Assistant Name Role Phone Maral Quinn RETIREMENT PLAN COUNSELOR Unavailable Brenden Carvajal DO Unavailable Darby Saba MD Unavailable Manuela Polk RETIREMENT PLAN COUNSELOR Unavailable Unavailable Manuela Waggoner DO Unavailable Crow Man MD Unavailable [email or web address] Richard Pacheco MD Unavailable Christofer Keen MD Unavailable [phone] Rich Pleitez MD Unavailable [phone] Manuela Waggoner DO Primary Care Provider Krystal Da Silva [facility] Unavailable [phone] Encounter Details Date Type Department Care Team (Late st Contact Info) Description 02/22/2020 Transcribe Orders Virtual Department [address] [place] [address] Tai Lopez MD [address] [address] [email or web address] Calculus of kidney (Primary Dx) Social History [...] st Contact Info) Description 01/06/2025 Procedure Pass [address] [address] 05/01/2025 9:00 AM EST Office Visit [facility] [address] [address] Manuela Waggoner, DO [address] [place] [address] 06/13/2025 7:00 PM EDT Appointment [facility] [address] [address] Paulino Sam MD [address] [place] [address] [email or web address] 09/11/2025 9:30 AM EDT Appointment [address] [address] Manuela Waggoner, DO 234 [facility] 7 [place] [address] documented as of this encounter Results * US Kidneys (03/01/2020 10:38 AM EST) Anatomical Region Laterality Modality Abdomen, Kidney Ultrasound 03/01/2020 10:5 0 AM EST Impressions 03/01/2020 10:56 AM EST Several discrete nonobstructing calyceal stones are noted on the left. Tiny echogenic foci bilaterally are likely vascular reflectors but could be miniscule calyceal calculi. No significant hydronephrosis, with minimal fullness of the left central collecting system less pronounced than on 01/13/18. Narrative 03/01/2020 10:56 AM EST US KIDNEYS History: History of kidney stones TECHNIQUE: Ultrasound evaluation of the KIDNEYS AND BLADDER. Volumetric sweeps were obtained and reviewed. COMPARISON: 01/13/18 FINDINGS: RIGHT KIDNEY: The right kidney measures 3.8 x 11.0 cm, with no significant cortical thinning and no discrete suspicious renal mass. Multiple tiny echogenic foci may be vascular reflectors, or miniscule calyceal calculi, with no definite discrete measurable shadowing calyceal stones. No hydronephrosis. LEFT KIDNEY: The left kidney measures 4.6 x 11.9 cm, with no significant cortical thinning and no discrete suspicious renal mass. Multiple tiny echogenic foci may be vascular reflectors, or minimal calyceal calculi. Discrete echogenic shadowing structures that appear to be calyceal stones include 7 mm in the midpole and 6 mm at the lower pole. Minimal fullness of the renal pelvis and major infundibula are noted, with a decrease in the degree of hydronephrosis compared to 01/13/18 Procedure Note Erlin Fleming MD - 03/01/2020 US KIDNEYS History: History of kidney stones TECHNIQUE: Ultrasound evaluation of the KIDNEYS AND BLADDER. Volumetric sweeps wereobtained and reviewed. COMPARISON: 01/13/18 FINDINGS: RIGHT KIDNEY: The right kidney measures 3.8 x 11.0 cm, with nosignificant cortical thinning and no discrete suspicious renal mass.Multiple tiny echogenic foci may be vascular reflectors, or minisculecalyceal calculi, with no definite discrete measurable shadowing calycealstones. No hydronephrosis. LEFT KIDNEY: The left kidney measures 4.6 x 11.9 cm, with no significantcortical thinning and no discrete suspicious renal mass. Multiple tinyechogenic foci may be vascular reflectors, or minimal calyceal calculi.Discrete echogenic shadowing structures that appear to be calyceal stonesinclude 7 mm in the midpole and 6 mm at the lower pole. Minimal fullnessof the renal pelvis and major infundibula are noted, with a decrease inthe degree of hydronephrosis compared to 01/13/18 IMPRESSION: Several discrete nonobstructing calyceal stones are noted on the left. Tiny echogenic foci bilaterally are likely vascular reflectors but couldbe miniscule calyceal calculi. No significant hydronephrosis, with minimal fullness of the left centralcollecting system less pronounced than on 01/13/18. us Tai Lopez MD IMG US RENAL Final Re sult * XR ABDOMEN 1 VIEW (03/01/2020 10:37 AM EST) Anatomical Region Laterality Modality Abdomen Computed Radiogr aphy 03/01/2020 11:0 1 AM EST Impressions 03/01/2020 11:03 AM EST Stable left nephrolithiasis. Narrative 03/01/2020 11:03 AM EST HISTORY: As above. COMPARISON: CT abdomen pelvis 03/09/2018. ABDOMINAL RADIOGRAPH FINDINGS: Views: 2. Lung Bases/Heart: Unremarkable. Bowel: Unremarkable. Soft Tissues: Stable faint 2 mm left lower interpolar radiopaque calculus. Bones: Stable moderate L5-S1 facet arthropathy and severe disc space narrowing. Procedure Note Taqueria Dow MD - 03/01/2020 HISTORY: As above. COMPARISON: CT abdomen pelvis 03/09/2018. ABDOMINAL RADIOGRAPH FINDINGS: Views: 2. Lung Bases/Heart: Unremarkable. Bowel: Unremarkable. Soft Tissues: Stable faint 2 mm left lower interpolar radiopaquecalculus. Bones: Stable moderate L5-S1 facet arthropathy and severe disc spacenarrowing. IMPRESSION: Stable left nephrolithiasis. us Tai Lopez MD IMG XR ABDOMEN Final Re sult documented in this encounter Visit Diagnoses Diagnosis Calculus of kidney- Primary Calculus of kidney Calculus of kidney documented in this encounter Additional Health Concerns Infection Onset Date Last Indicated Resolved Time 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 09/22/2018 05/14/2022 1:41 AM EST Assessment Noted Time PHQ-2 Depression Total Score: 0 12/25/19 18 10:40 AM EDT documented as of this encounter Care Teams B[employer] Library Technical Assistant Relationship Specialty Start Date End Date Manuela Waggoner DO 234 [facility] 7 [place] [address] [email or web address] PCP - General Family Medicine 11/28/19 Maral Quinn NP [address] [place] [address] Historical LMR Provider 01/12/17 Brenden Carvajal DO [address] [place] [address] 7 [place] [address] [email or web address] Historical LMR Provider 01/12/17 Darby Saba MD [address] [place] [address] 3 [place] [address] Historical LMR Provider 01/12/17 2 Manuela Polk NP [address] [place] [address] Historical LMR Provider 01/12/1704/06 Manuela Waggoner DO [address] [place] [address] 7 [place] [address] [email or web address] Historical LMR Provider 01/12/17 Crow Man MD [email or web address] Historical LMR Provider 01/12/17 Richard Pacheco MD [address] [place] [address], [address] [place] [address] Historical LMR Provider 01/12/17 04/06/21 Christofer Keen MD [facility], [address] [place] [address] Historical LMR Provider 01/12/17 04/06/21 Rich Pleitez MD [address] [place] [address] 7 [place] [address] Historical LMR Provider 01/12/17 Krystal Da Silva, [facility] 10 [place] [address] [email or web address] PHCM Crna 12/10/22 02/28/24 documented as of this encounter Additional Source Comments The information contained in this document represents components of the legal health record. It is not the complete legal health record.[facility]
--- OUTSIDE RECORDS SUMMARY | 2025-01-19 18:37 | XMS_ITS | Encounter Summary ---
Author Organization [facility] Address [address] [place] [address] [place] [address] Phone Care Team Providers Care School Speech Language Pathologist Name Role Phone Maral Quinn SENIOR MEDICAL TRANSCRIPTIONIST Unavailable Brenden Carvajal DO Unavailable Darby Saba MD Unavailable [phone] Manuela Polk SENIOR MEDICAL TRANSCRIPTIONIST Unavailable Unavailable Manuela Waggoner DO Unavailable [phone] Crow Man MD Unavailable [email or web address] Richard Pacheco MD Unavailable Christofer Keen MD Unavailable [phone] Rich Pleitez MD Unavailable Manuela Waggoner DO Primary Care Provider Manuela Waggoner DO Primary Care Provider Krystal Da Silva [facility] Unavailable Encounter Details Date Type Department Care Team (Late st Contact Info) Description 09/22/2018 Documentation [facility] Infectious Disease Virtual Department [address] [place] [phone] Laura Sprague, AUDIE [address] [place], [place] [id number] [email or web address] Social History Tobacco Use Types Packs/Day Years [...] st Contact Info) Description 01/06/2025 Procedure Pass [address] [address] 05/01/2025 9:00 AM EST Office Visit [facility] [address] [address] Manuela Waggoner, DO [address] [address] 06/13/2025 7:00 PM EDT Appointment [address] [address] Pauilno Sam MD [address] [place] [address] 09/11/2025 9:30 AM EDT Appointment [address] [address] Manuela Waggoner, DO [address] [address] documented as of this encounter Visit Diagnoses Not on filedocumented in this encounter Additional Health Concerns Infection Onset Date Last Indicated Resolved Time 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 09/22/2018 05/14/2022 1:41 AM EST Assessment Noted Time PHQ-2 Depression Total Score: 0 12/25/19 10:40 AM EDT documented as of this encounter Care Teams School Speech Language Pathologist Relationship Specialty Start Date End Date Manuela Waggoner DO 234 [facility] 7 [place] [address] PCP - General Family Medicine 02/04/17 11/27/19 Manuela Waggoner DO 234 [facility], [facility] 7 [place] [address] PCP - General Family Medicine 11/28/19 Maral Quinn NP [address] [place] [address] Historical LMR Provider 01/12/17 Brenden Carvajal DO [address] [place] [address] 7 [place] [address] [email or web address] Historical LMR Provider 01/12/17 Darby Saba MD [address] [place] [address] 3 [place] [address] Historical LMR Provider 01/12/17 2 Manuela Polk SENIOR MEDICAL TRANSCRIPTIONIST [address] [place] [address] Historical LMR Provider 01/12/1704/06 Manuela Waggoner DO [address] [place] [address] 7 [place] [address] [email or web address] Historical LMR Provider 01/12/17 Crow Man MD [email or web address] Historical LMR Provider 01/12/17 Richard Pacheco MD [address] [place] [address] Historical LMR Provider 01/12/17 04/06/21 Christofer Keen MD [address] [place] [address] [address] [place] [address] Historical LMR Provider 01/12/17 04/06/21 Rich Pleitez MD [address] [place] [address] 7 [place] [address] Historical LMR Provider 01/12/17 Krystal Da Silva, [facility] 10 [place] [address] [email or web address] PHCM Procurement Representative 12/10/22 02/28/24 documented as of this encounter Additional Source Comments The information contained in this document represents components of the legal health record. It is not the complete legal health record.[facility]
--- OUTSIDE RECORDS SUMMARY | 2025-01-19 18:37 | XMS_ITS | Encounter Summary ---
Author Organization [facility] Address [address] [facility] [address] [place] [address] Phone Care Team Providers Care Curbing Stonecutter Name Role Phone Maral Quinn OBSTETRICIAN/GYNECOLOGIST Unavailable Brenden Carvajal DO Unavailable Darby Saba MD Unavailable Manuela Polk OBSTETRICIAN/GYNECOLOGIST Unavailable Unavailable DacManuela myles DO Unavailable [phone] Crwo Man MD Unavailable [email or web address] Richard Pacheco MD Unavailable Christofer Keen MD Unavailable [phone] Rich Pleitez MD Unavailable [phone] Manuela Waggoner DO Primary Care Provider Manuela Waggoner DO Primary Care Provider [phone] Krystal Da Silva [facility] Unavailable Encounter Details Date Type Department Care Team (Latest Contact Info) Description 01/25/2018 Transcribe Orders [facility] [address] [place] [address] Tai Lopez MD [address] [address] [email or web address] Uric acid nephrolithiasis (Primary Dx) Social History Tobacco Use Types [...] st Contact Info) Description 01/06/2025 Procedure Pass [address] [address] 05/01/2025 9:00 AM EST Office Visit [facility] [address] [address] Manuela Waggoner, DO [address] [place] [address] 06/13/2025 7:00 PM EDT Appointment [address] [address] Paulino Sam MD [address] [place] [address] 09/11/2025 9:30 AM EDT Appointment [address] [address] Manuela Waggoner, DO 234 [facility] 7 [place] [address] documented as of this encounter Procedures Procedure Name Priority Date/Time Associated Diagnosis Comments CREATININE/EGFR Routine 01/25/2018 8:55 AM EDT Uric acid nephrolithiasis URIC ACID Routine 01/25/2018 8:55 AM EDT Uric acid nephrolithiasis BUN Routine 01/25/2018 8:55 AM EDT Uric acid nephrolithiasis PHOSPHORUS Routine 01/25/2018 8:55 AM EDT Uric acid nephrolithiasis MAGNESIUM Routine 01/25/2018 8:55 AM EDT Uric acid nephrolithiasis CALCIUM Routine 01/25/2018 8:55 AM EDT Uric acid nephrolithiasis ELECTROLYTES Routine 01/25/2018 8:55 AM EDT Uric acid nephrolithiasis documented in this encounter Results * Calcium (01/25/2018 8:55 AM EDT) CALCIUM 9.5 8.4 - 10.3 mg/dL [facility] Blood 01/25/2018 8:55 AM EDT 01/25/2018 8:57 AM EDT us Tai Lopez MD LAB BLOOD ORDERABLES Fin al Result [address] [address] * Phosphorus (01/25/2018 8:55 AM EDT) PHOSPHORUS 3.7 2.7 - 4.5 mg/dL [facility] Blood 01/25/2018 8:55 AM EDT 01/25/2018 8:57 AM EDT Tai Lopez MD LAB BLOOD ORDERABLES Fin al Result [address] [id number] * Uric acid (01/25/2018 8:55 AM EDT) URIC ACID 4.9 2.4 - 7.0 mg/dL [facility] Blood 01/25/2018 8:55 AM EDT 01/25/2018 8:57 AM EDT Tai Lopez MD LAB BLOOD ORDERABLES Fin al Result [address] [address] * Magnesium (01/25/2018 8:55 AM EDT) MAGNESIUM 2.1 1.6 - 2.6 mg/dL [facility] Blood 01/25/2018 8:55 AM EDT 01/25/2018 8:57 AM EDT Tai Lopez MD LAB BLOOD ORDERABLES Fin al Result Performing Organization Address [facility] Co de Phone Number [address] [address] * Creatinine/eGFR (01/25/2018 8:55 AM EDT) CREATININE 0.80 0.5 - 1.5 mg/dL [facility] EGFR 84 >59 mL/min/1.7 3m2 [facility] Comment:If patient is black, multiply result by 1.159. Estimated glomerular filtration rate calculated using the CKD-EPI equation. Blood 01/25/2018 8:55 AM EDT 01/25/2018 8:57 AM EDT Tai Lopez MD LAB BLOOD ORDERABLES Fin al Result [address] [address] * Electrolytes (01/25/2018 8:55 AM EDT) SODIUM 142 133 - 146 mmol/L [facility] POTASSIUM 4.3 3.3 - 5.1 mmol/L [facility] CHLORIDE 102 96 - 108 mmol/L [facility] CO2 28 21 - 35 mmol/L [facility] ANION GAP 16 10 - 20 mmol/L [facility] Blood 01/25/2018 8:55 AM EDT 01/25/2018 8:57 AM EDT us Tai Lopez MD LAB BLOOD ORDERABLES Fin al Result Performing Organization Address City/[facility] Co de Phone Number [address] [address] * BUN (01/25/2018 8:55 AM EDT) BUN 17 6 - 19 mg/dL [facility] Blood 01/25/2018 8:55 AM EDT 01/25/2018 8:57 AM EDT Tai Lopez MD LAB BLOOD ORDERABLES Fin al Result Performing Organization Address [facility] de Phone Number [address] [address] documented in this encounter Visit Diagnoses Diagnosis Uric acid nephrolithiasis- Primary documented in this encounter Additional Health Concerns Infection Onset Date Last Indicated Resolved Time 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 09/22/2018 05/14/2022 1:41 AM EST Assessment Noted Time PHQ-2 Depression Total Score: 0 12/25/19 18 10:40 AM EDT documented as of this encounter Care Teams Curbing Stonecutter Relationship Specialty Start Date End Date Manuela Waggoner DO [address] [address] PCP - General Family Medicine 02/04/17 11/27/19 Manuela Waggoner DO [address] [place] [address] 7 [place] [address] [email or web address] PCP - General Family Medicine 11/28/19 Maral Quinn NP 1 [facility] [place] [address] Historical LMR Provider 01/12/17 Brenden Carvajal DO 234 [facility] 7 [place] [address] Historical LMR Provider 01/12/17 Darby Saba MD 234 [facility] 3 [place] [address] Historical LMR Provider 01/12/17 2 Manuela Polk OBSTETRICIAN/GYNECOLOGIST [address] [place] [address] Historical LMR Provider 01/12/1704/06 Manuela Waggoner DO [address] [place] [address] 7 [place] [address] Historical LMR Provider 01/12/17 Crow Man MD [email or web address] Historical LMR Provider 01/12/17 Richard Pacheco MD [address] [place] [address], [address] [place] [address] Historical LMR Provider 01/12/17 04/06/21 Christofer Keen MD 22 [facility], [address] [place] [address] Historical LMR Provider 01/12/17 04/06/21 Rich Pleitez MD [address] [place] [address] 7 [place] [address] Historical LMR Provider 01/12/17 Krystal Da Silva, FIRE MANAGEMENT OFFICER 10 [place] [address] [email or web address] PHCM Pararescue Manager 12/10/22 02/28/24 documented as of this encounter Additional Source Comments The information contained in this document represents components of the legal health record. It is not the complete legal health record.[facility]
--- OUTSIDE RECORDS SUMMARY | 2025-01-19 18:37 | XMS_ITS | Encounter Summary ---
Author Organization [facility] Address [address] [facility] [address] [place] [address] Phone Care Team Providers Care Permit Specialist Name Role Phone Brenden Carvajal DO Unavailable Manuela Waggoner DO Unavailable [phone] Crow Man MD Unavailable [email or web address] Manuela Waggoner DO Primary Care Provider [phone] Krystal Da Silva [facility] Unavailable Encounter Details Date Type Department Care Team (Latest Contact Info) Description 05/15/2023 Transcribe Orders Virtual Department 30 [place] [address] Clinton Lewis PA-C [address] [address] [email or web address] Calculus of kidney (Primary Dx) Social History [...] high school, GED, job training, learning the Sammarinese language, technical skills, or developing parenting skills)? [...] st Contact Info) Description 01/06/2025 Procedure Pass [facility] 30 [place] [address] 05/01/2025 9:00 AM EST Office Visit [facility] Medical [facility] Medicine [address] [place] [address] Manuela Waggoner, DO 234 [facility], [address] [place] [address] 06/13/2025 7:00 PM EDT Appointment [facility], Bone Density - [address] [address] Paulino Sam MD [address] [place] [address] [email or web address] 09/11/2025 9:30 AM EDT Appointment [facility], Mammography- [address] [address] Manuela Waggoner DO 234 [facility] 7 [place] [address] [email or web address] documented as of this encounter Visit Diagnoses Diagnosis Calculus of kidney- Primary documented in this encounter Additional Health Concerns Assessment Noted Time PHQ-2 Depression Total Score: 0 12/23/19 23 1:04 PM EDT documented as of this encounter Care Teams Permit Specialist Relationship Specialty Start Date End Date Manuela Waggoner DO 234 [facility] 7 [place] [address] [email or web address] PCP - General Family Medicine 11/28/19 Brenden Carvajal DO [address] [place] [address] 7 [place] [address] [email or web address] Historical LMR Provider 01/12/17 Manuela Waggoner DO [address] [place] [address] 7 [place] [address] [email or web address] Historical LMR Provider 01/12/17 Crow Man MD [email or web address] Historical LMR Provider 01/12/17 Krystal Da Silva, [address] [address] [email or web address] PHC Corporate Sales Manager 12/10/22 02/28/24 documented as of this encounter Additional Source Comments The information contained in this document represents components of the legal health record. It is not the complete legal health record.[facility]
--- OUTSIDE RECORDS SUMMARY | 2025-01-19 18:37 | XMS_ITS | Encounter Summary ---
Author Organization [facility] Address [address] [facility] [address] [place] [address] Phone Care Team Providers Care Production Department Supervisor Name Role Phone Maral Quinn CREATIVE PROJECT MANAGER Unavailable Brenden Carvajal DO Unavailable Darby Saba MD Unavailable [phone] Manuela Polk CREATIVE PROJECT MANAGER Unavailable Unavailable Manuela Waggoner DO Unavailable [phone] Crow Man MD Unavailable [email or web address] Richard Pacheco MD Unavailable Christofer Keen MD Unavailable [phone] Rich Pleitez MD Unavailable Manuela Waggoner DO Primary Care Provider Manuela Waggoner DO Primary Care Provider Krystal Da Silva [facility] Unavailable Encounter Details Date Type Department Care Team (Late st Contact Info) Description 09/08/2018 Procedure Pass [facility]oscopy Admitting Dept Virtual Department 30 [place] [address] Social History Tobacco Use Types [...] AM EDT documented as of this encounter Functional Status documented as of this encounter Plan of Treatment Upcoming Encounters Date Type Department Care Team (Late st Contact Info) Description 01/06/2025 Procedure Pass [address] [address] 05/01/2025 9:00 AM EST Office Visit [address] [address] Manuela Waggoner DO [address] [address] 06/13/2025 7:00 PM EDT Appointment [address] [address] Paulino Sam MD [address] [place] [address] 09/11/2025 9:30 AM EDT Appointment [address] [address] Manuela Waggoner DO [address] [address] documented as of this encounter Visit Diagnoses Not on filedocumented in this encounter Additional Health Concerns Infection Onset Date Last Indicated Resolved Time 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 09/22/2018 05/14/2022 1:41 AM EST Assessment Noted Time PHQ-2 Depression Total Score: 0 12/25/19 18 10:40 AM EDT documented as of this encounter Care Teams Production Department Supervisor Relationship Specialty Start Date End Date Manuela Waggoner DO [address] [place] [address] 7 [place] [address] [email or web address] PCP - General Family Medicine 02/04/17 11/27/19 Manuela Waggoner DO [address] [place] [address] [address] [place] [address] [email or web address] PCP - General Family Medicine 11/28/19 Maral Quinn CREATIVE PROJECT MANAGER [address] [place] [address] Historical LMR Provider 01/12/17 Brenden Carvajal DO [address] [place] [address] 7 [place] [address] [email or web address] Historical LMR Provider 01/12/17 Darby Saba MD [address] [place] [address] 3 [place] [address] Historical LMR Provider 01/12/17 2 Manuela Polk CREATIVE PROJECT MANAGER [address] [place] [address] Historical LMR Provider 01/12/1704/06 Manuela Waggoner DO [address] [place] [address] 7 [place] [address] [email or web address] Historical LMR Provider 01/12/17 Crow Man MD [email or web address] Historical LMR Provider 01/12/17 Richard Pacheco MD [address] [place] [address], 2[address] [place] [address] Historical LMR Provider 01/12/17 04/06/21 Christofer Keen MD 22 [facility], [address] [place] [address] [email or web address] Historical LMR Provider 01/12/17 04/06/21 Rich Pleitez MD [address] [place] [address] 7 [place] [address] Historical LMR Provider 01/12/17 Krystal Da Silva, [facility] 10 [place] [address] [email or web address] PHCM Placing Judge 12/10/22 02/28/24 documented as of this encounter Additional Source Comments The information contained in this document represents components of the legal health record. It is not the complete legal health record.[facility]
--- OUTSIDE RECORDS SUMMARY | 2025-01-19 18:37 | XMS_ITS | Encounter Summary ---
Author Organization [facility] Address [address] [place] [address] [place] [phone] Phone Care Team Providers Care Welder Setter Electron Beam Machine Name Role Phone Maral Quinn RACECAR DRIVER Unavailable Brenden Carvajal DO Unavailable Darby Saba MD Unavailable [phone] Manuela Polk RACECAR DRIVER Unavailable Unavailable DacManuela myles DO Unavailable [phone] Crow Man MD Unavailable [email or web address] Richard Pacheco MD Unavailable Christofer Keen MD Unavailable Rich Pleitez MD Unavailable [phone] Manuela Waggoner DO Primary Care Provider [phone] Manuela Waggoner DO Primary Care Provider Krystal Da Silva [facility] Unavailable [phone] Reason for Referral * MRI/CAT Scan - Closed Specialty Diagnoses / Procedures Referred By Billy new Referred To Contact Radiology Diagnoses Calculus of kidney Procedures CT Abdomen/Pelvis Tai Lopez MD Phone: tel: fax: [email or web address] Referral ID Status Reason Start Date Expiration Date Visits Re quested Visits Authorized [id number] Closed 02/25/2018 03/26/2018 1 1 Encounter Details Date Type Department Care Team (Late Contact Info) Description 02/26/2018 Ancillary Orders Virtual Department [address] [place] [id number] Tai Lopez MD [address] [address] [email or web address] Calculus of kidney Social History Tobacco Use Types Packs/Day Years [...] Encounters Date Type Department Care Team (Late Contact Info) Description 01/06/2025 Procedure Pass [address] [address] 05/01/2025 9:00 AM EST Office Visit [facility] [address] [address] Manuela Waggoner DO [address] [facility], [address] [place] [address] 06/13/2025 7:00 PM EDT Appointment [facility] [address] [address] Paulino Sam MD [address] [place] [address] 09/11/2025 9:30 AM EDT Appointment [address] [address] Manuela Waggoner, DO [address] [facility], [address] [place] [address] [email or web address] documented as of this encounter Results * CT ABDOMEN/PELVIS WITH AND WITHOUT CONTRAST (03/09/2018 9:10 AM EST) Anatomical Region Laterality Modality Abdomen, Pelvis Computed Tomogra phy 03/09/2018 9:42 AM EST Impressions 03/10/2018 10:53 PM EST Findings of medullary sponge kidney. Bilateral nephrolithiasis. Hepatic steatosis. TOTAL CTDIvol: 38.60 mGy POS - [id number] Edited by: Zoraida Jacobson on 03/09/2018 10:40 AM Narrative 03/10/2018 10:53 PM EST COMPARISON: 11/15/2015 TECHNIQUE: Water is used as an oral contrast agent. Pre-contrast views are obtained from the kidneys through the inferior pubic rami. Intravenous contrast is then administered and scanning obtained at ninety seconds from the dome of the liver to the iliac crests. Delayed scanning is then obtained from above the kidneys through the inferior pubic rami during excretory phase. Automated exposure control utilized. FINDINGS: CT ABDOMEN: Lower thorax: No infiltrate in the basal lungs. No pleural or pericardial effusions. Liver: Top normal in size. Diffuse fatty liver with areas of focal fatty sparing around the gallbladder. 2 cm cyst in the hepatic dome. Gallbladder/biliary tree: No definite calcified gallstones or pericholecystic inflammatory change. No biliary ductal dilatation Spleen:No abnormality detected. Pancreas: Fatty changes in the head and uncinate process. Adrenal glands: No masses. Kidneys/ureters: Uniform enhancement and symmetric excretion of contrast material. Streaky appearance of dilated contrast-filled tubules within the renal medullary regions bilaterally. Mild dilatation of the remainder of the collecting systems is similar to the prior exam. Subtle hyperdense appearance of the medullary pyramids. There are at least 3 stones on the left measuring up to 4 mm in the upper pole. Few 1 mm stones on the right. Ureters have normal caliber without filling defects, proximal/mid left and portions of the distal right ureter are unopacified with contrast. Ureteral jets are visualized. No ureteral stones. No lesions detected. Transverse orientation of the right kidney. Vasculature: No abdominal aortic aneurysm. Hepatic veins and portal vein are patent. Peritoneum: No evidence of free intraperitoneal air, free fluid, or organized collections. Lymph nodes: No lymphadenopathy detected. 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 This appears stable as far back as 2011. Body wall: No suspicious mass. CT PELVIS: Bladder:Limited evaluation due to underdistention. No stones. Diffuse wall thickening is likely related to decompressed state. No definite filling defects. Reproductive: No uterine or adnexal abnormalities. Bowel: No obstruction. Moderate amount of stool throughout the colon. Normal appendix. Peritoneum: No free fluid or organized collections. Lymph nodes: No iliac chain or inguinal lymphadenopathy. Bones: Chronic severe loss of disc height with degenerative endplate spondylosis at L5-S1. Moderately severe facet arthropathy on the left and moderate on the right at this level. No destructive bone lesion. Procedure Note Stephanie Chandler MD - 03/10/2018 COMPARISON: 11/15/2015 TECHNIQUE: Water is used as an oral contrast agent. Pre-contrast viewsare obtained from the kidneys through the inferior pubic rami.Intravenous contrast is then administered and scanning obtained at ninetyseconds from the dome of the liver to the iliac crests. Delayed scanningis then obtained from above the kidneys through the inferior pubic ramiduring excretory phase. Automated exposure control utilized. FINDINGS: CT ABDOMEN: Lower thorax: No infiltrate in the basal lungs. No pleural or pericardialeffusions. Liver: Top normal in size. Diffuse fatty liver with areas of focal fattysparing around the gallbladder. 2 cm cyst in the hepatic dome. Gallbladder/biliary tree: No definite calcified gallstones orpericholecystic inflammatory change. No biliary ductal dilatation Spleen:No abnormality detected. Pancreas: Fatty changes in the head and uncinate process. Adrenal glands: No masses. Kidneys/ureters: Uniform enhancement and symmetric excretion of contrastmaterial. Streaky appearance of dilated contrast-filled tubules withinthe renal medullary regions bilaterally. Mild dilatation of the remainderof the collecting systems is similar to the prior exam. Subtle hyperdenseappearance of the medullary pyramids. There are at least 3 stones on theleft measuring up to 4 mm in the upper pole. Few 1 mm stones on theright. Ureters have normal caliber without filling defects, proximal/midleft and portions of the distal right ureter are unopacified withcontrast. Ureteral jets are visualized. No ureteral stones. No lesionsdetected. Transverse orientation of the right kidney. Vasculature: No abdominal aortic aneurysm. Hepatic veins and portal veinare patent. Peritoneum: No evidence of free intraperitoneal air, free fluid, ororganized collections. Lymph nodes: No lymphadenopathy detected. Stomach/duodenum: Stable 2.0 x 1.5 x 1.8 cm circumscribed enhancingexophytic lesion involving the second portion of the duodenum which couldrepresent a GIST tumor. This appears stable as far back as 2011. Body wall: No suspicious mass. CT PELVIS: Bladder:Limited evaluation due to underdistention. No stones. Diffusewall thickening is likely related to decompressed state. No definitefilling defects. Reproductive: No uterine or adnexal abnormalities. Bowel: No obstruction. Moderate amount of stool throughout the colon.Normal appendix. Peritoneum: No free fluid or organized collections. Lymph nodes: No iliac chain or inguinal lymphadenopathy. Bones: Chronic severe loss of disc height with degenerative endplatespondylosis at L5-S1. Moderately severe facet arthropathy on the left andmoderate on the right at this level. No destructive bone lesion. IMPRESSION: Findings of medullary sponge kidney. Bilateral nephrolithiasis. Hepatic steatosis. 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 09/22/2018 05/14/2022 1:41 AM EST Assessment Noted Time PHQ-2 Depression Total Score: 0 12/25/19 18 10:40 AM EDT documented as of this encounter Care Teams Welder Setter Electron Beam Machine Relationship Specialty Start Date End Date Manuela Waggoner DO [address] [facility], [facility] [address] [place] [address] PCP - General Family Medicine 02/04/17 11/27/19 Manuela Waggoner DO [address] [facility] 7 [place] [address] [email or web address] PCP - General Family Medicine 11/28/19 Maral Quinn NP [address] [place] [address] Historical LMR Provider 01/12/17 Brenden Carvajal DO [address] [place] [address] 7 [place] [address] [email or web address] Historical LMR Provider 01/12/17 Darby Saba MD [address] [place] [address] [address] [place] [address] Historical LMR Provider 01/12/17 2 Manuela Polk RACECAR DRIVER [address] [place] [address] Historical LMR Provider 01/12/1704/06 Manuela Waggoner DO [address] [place] [address] 7 [place] [address] [email or web address] Historical LMR Provider 01/12/17 Crow Man MD [email or web address] Historical LMR Provider 01/12/17 Richard Pacheco MD [address] [place] [address] Historical LMR Provider 01/12/17 04/06/21 Christofer Keen MD [address] [place] [address] [address] [place] [address] Historical LMR Provider 01/12/17 04/06/21 Rich Pleitez MD [address] [place] [address] 7 [place] [address] Historical LMR Provider 01/12/17 Krystal Da Silva, [facility] [address] [place] [address] [email or web address] Nursing Admin 12/10/22 02/28/24 documented as of this encounter Additional Source Comments The information contained in this document represents components of the legal health record. It is not the complete legal health record.[facility]
== END 2025-01-19 16:10 | disposition home or self-care (01) ==
LOC: HO.HSMS 14:47
PROVIDERS: PCP Family Medicine; Visit Provider Nurse Practitioner Family
DX: F07.81 Postconcussional syndrome (principal); G43.909 Migraine, unspecified, not intractable, without status migrainosus; M54.2 Cervicalgia; R41.89 Other symptoms and signs involving cognitive functions and awareness
CPT/HCPCS: 99214

== ENCOUNTER → 2025-01-19 14:46 | Outpatient (BNVA) | payer OTHER, SELFPAY | PROVIDERS: PCP Family Medicine; Visit Provider Nurse Practitioner Family | DX: G43.909 Migraine, unspecified, not intractable, without status migrainosus (principal); F07.81 Postconcussional syndrome; M54.2 Cervicalgia; F09 Unspecified mental disorder due to known physiological condition; G47.33 Obstructive sleep apnea (adult) (pediatric); Z99.89 Dependence on other enabling machines and devices | CPT/HCPCS: 99212 ==